=== PATIENT | male | born 1945 | race Caucasian/White ===

== ENCOUNTER 2019-12-09 14:46 | Outpatient (CLI) | payer MEDICARE, SELFPAY ==
--- NOTE | 2019-12-09 15:00 | USCV_ITS ---
Gardenia Oskar Age: 74 Gender: M : 1945 Exam Date: 12/09/2019 15:25 Ordering Phys: Matt Juares M.D ([email or web address]) Technologist: Chidi Beltran Exam Location: [facility] [place] Indication: CAD BP: 125 / 72 HR: 43 Rhythm: Sinus Technical Quality: Adequate MEASUREMENTS (Male / Female) Normal Values 2D ECHO LV Diastolic Diameter PLAX 5.8 cm 4.2 - 5.9 / 3.9 - 5.3 cm LV Systolic Diameter PLAX 3.8 cm IVS Diastolic Thickness 1.0 cm 0.6 - 1.0 / 0.6 - 0.9 cm IVS Systolic Thickness 1.4 cm LVPW Diastolic Thickness 1.2 cm 0.6 - 1.0 / 0.6 - 0.9 cm LVPW Systolic Thickness 1.6 cm LVOT Diameter 2.0 cm LV Ejection Fraction 2D Teich 62.5 % LV Ejection Fraction MOD 2C 25.2 % LV Ejection Fraction 2C AL 26.9 % LA Diameter 4.0 cm LA Width 3.7 cm LA Height 6.1 cm RA Width 3.4 cm RA Height 4.9 cm Aorta at Sinotubular Diameter 1.0 cm M-MODE LV Diastolic Diameter MM 7.8 cm 4.2 - 5.9 / 3.9 - 5.3 cm LV Systolic Diameter MM 5.8 cm LV Ejection Fraction MM Teich 49.0 % IVS Diastolic Thickness MM 1.2 cm 0.6 - 1.0 / 0.6 - 0.9 cm IVS Systolic Thickness MM 1.3 cm LVPW Diastolic Thickness MM 1.2 cm 0.6 - 1.0 / 0.6 - 0.9 cm LVPW Systolic Thickness MM 1.5 cm RV Diastolic Diameter MM 1.2 cm Aortic Annulus Diameter 4.1 cm LA Ao Ratio MM 1.0 MV E Point Septal Separation 2.3 cm DOPPLER AV Peak Velocity 155.0 cm/s LVOT Peak Velocity 82.0 cm/s AV Area Cont Eq vti 1.9 cm squared AV Area Cont Eq pk 1.7 cm squared MV Area PHT 5.0 cm squared Mitral E to A Ratio 1.1 MV E' Velocity 14.0 cm/s Mitral E to MV E' Ratio 7.7 Mitral E to LV E' Lateral Ratio 5.6 Mitral E to LV E' Septal Ratio 12.4 TR Peak Velocity 376.0 cm/s TR Peak Gradient 56.5 mmHg TV Peak E Velocity 95.0 cm/s Right Atrial Pressure 3.0 mmHg Pulmonary Artery Systolic Pressu 59.6 mmHg PV Peak Velocity 90.0 cm/s FINDINGS Left Ventricle Normal left ventricular size. LV systolic function is moderately reduced with EF of 35 to 40%. Apical and mid to apical anterior wall are akinetic. Moderate hypokinesis of mid to apical inferior wall is noted. Normal left ventricular wall thickness. Diastolic function is abnormal. Right Ventricle The right ventricle is normal in size and function. Right Atrium The right atrium is normal in size. Left Atrium The left atrium is mildly dilated Mitral Valve Structurally normal mitral valve without significant stenosis or prolapse. There is mild to moderate mitral regurgitation. Aortic Valve Structurally normal aortic valve without significant sclerosis or stenosis. There is mild to moderate aortic regurgitation. Tricuspid Valve Structurally normal tricuspid valve without significant stenosis or regurgitation. Insufficient TR jet to calculate RVSP. Pulmonic Valve Structurally normal pulmonic valve without significant stenosis. There is no pulmonic regurgitation. Pericardium Normal pericardium without effusion. Aorta Ascending aorta is dilated. CONCLUSIONS LV systolic function is moderately reduced with EF of 35 to 40%. Above-mentioned regional wall motion abnormalities are noted. Diastolic function is abnormal. Mild to moderate mitral regurgitation and mild to moderate aortic regurgitation is noted. Ascending aorta is dilated. Matt Juares MD (Electronically Signed) Final Date: 15 December 2019 10:41 S
== END 2019-12-09 14:47 | disposition home or self-care (01) ==
LOC: US 14:47
PROVIDERS: PCP Family Medicine; Visit Provider Internal Medicine
DX: I25.5 Ischemic cardiomyopathy (principal); I08.0 Rheumatic disorders of both mitral and aortic valves
CPT/HCPCS: 93306

== ENCOUNTER → 2020-06-06 08:58 | Outpatient (BNVA) | payer MEDICARE, MEDICAID, SELFPAY | PROVIDERS: PCP Family Medicine; Visit Provider Internal Medicine | DX: I25.10 Atherosclerotic heart disease of native coronary artery without angina pectoris (principal); R07.9 Chest pain, unspecified; Z01.89 Encounter for other specified special examinations; Z20.822 Contact with and (suspected) exposure to COVID-19 | CPT/HCPCS: 80048; 85025; 85610; 87635 ==

== ENCOUNTER 2020-06-09 09:00 | Observation (INO) | payer MEDICARE, MEDICAID, SELFPAY ==
[2020-06-09] VITALS (28 sets, daily range): BP systolic 80–144; BP diastolic 49–93; PULSE 43–69; RESP 8–23; TEMP 36.5; O2SAT 94–98; BMI 28.8
[2020-06-09] MEDS: diphenhydrAMINE 50 mg Capsule PO (07:00)
--- NOTE | 2020-06-09 07:32 | W.PM.OPSUD ---
Surgery/Procedure H&P Update DATE OF PROCEDURE: June 09, 2020 DATE H&P PERFORMED: 05/24/20 H&P UPDATE INFORMATION: I have reviewed H&P completed within last 30 days, I have examined patient prior to procedure and No changes to prior documentation PREOP DIAGNOSIS: Worsening angina PRIMARY INDICATION FOR PROCEDURE: Worsening angina PLANNED PROCEDURE: Operation Date: 06/09/20 07:00 Proposed Procedures p Cardiac Catheterization 57660 I25.10 R07.89(Left) - Matt Juares M.D Possible percutaneous coronary intervention PATIENT REASSESSED PRIOR TO SEDATION, WITH NO CHANGE NOTED: Yes PHYSICAL EXAM: alert, oriented x 3 and clear to auscultation bilaterally AIRWAY EVAL/ANESTHESIA PLAN: ASA III, Risks, benefits & alternatives of sedation and/or procedure discussed and Patient agrees to continue as planned
--- NOTE | 2020-06-09 12:00 | XACV_ITS ---
Ht: 183 cm Wt: 97 kg BSA: 2.23 m2 Gender: Male : 1945 Any Known Allergies: No known allergies Exam Priority: Routine Procedure(s): Procedure Description: Diagnostic procedure Procedure Description: Left Heart Catheterization Procedure Description: Left ventriculography Procedure Description: Coronary Angiography Diagnostic Cath Status: Elective Diagnostic Findings * Indication: Worsening chest pain. * Patient has separate ostia for LAD and left circumflex artery. LAD stent is patent. No significant stenosis is noted in LAD or diagonal. Left circumflex is a large artery and is patent. No significant stenosis is noted. RCA is patent. No significant stenosis is noted. Is a small sized vessel.. * Dilated ascending aorta. * Coronary angiography shows left dominance. Conclusions 1. Separate ostia of LAD and left circumflex artery. No significant coronary artery disease. Patent prior LAD stent.. 2. Moderate left ventricular systolic dysfunction. Ejection fraction of 35%. Recommendations * Aggressive risk factor control. * Consider adding Imdur if chest pain symptoms continue. * Outpatient cardiology follow up. Interventional RX Recommendation: medical therapy and/or counseling Diagnostic RX Recommendation: medical therapy and/or counseling Ventriculography Ejection Fraction: 35.0 % Pressures Phase:Rest AO : 115 / 76 ( 89 ) @ 3:09:00 AM 112 / 62 ( 68 ) @ 3:14:00 AM 111 / 71 ( 85 ) @ 3:16:00 AM 115 / 72 ( 86 ) @ 3:20:00 AM 126 / 30 ( 83 ) @ 3:29:00 AM LV : 118 / 12 / @ 3:14:00 AM 111 / -2 / @ 3:29:00 AM 111 / 0 / @ 3:29:00 AM Clinical Evaluation EBL: 5mL-10mL Procedural Details Procedure Consent Obtained. Pre-Procedure Time Out. Identified patient by full name and date of as verbalized by the patient/guarantor. Does the consent match the physician's order: Yes. Accurate & Complete Informed Consent: Yes. Inpatient/Outpatient History & Physical on Chart: Yes. If H&P is completed, is and addenduem needed: No; If yes, is the addendum complete: N/A. Visualize and Verify Site with Patient/Guarantor: N/A. Relevant Radiology Images available: N/A. Pre-op teaching completed and patient verbalized understanding. The risks, benefits, and alternatives of sedation and/or procedure were discussed by physician. The patient agrees to continue. Procedure started. [facility] Clinical Fraility Score: 3: Managing Well. 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 Chest Pain Symptom Assessment: Typical Angina Symptoms. Correct patient, site and procedure confirmed by cath team. PERRLA. Strong, equal hand engine generator assembler bilaterally. Lungs clear x 5 lobes. IV Site on Arrival: 18 gauge in the left anticubital. IV Fluids: 0.9% NaCl at KVO. 0 mL infused prior to optical lab technician. Pre Procedural Pulses: bilateral dorsalis pedis was 2+. Pre Procedural Pulses: bilateral posterior tibial was 2+. Pre Procedural Pulses: right radial was 2+. Pre Procedural Pulses: left radial was 3+. Oxygen started at 2liters/min via nasal canula. Baseline sample Acquired. HR: 59 BPM. Physician arrived. Equipment: 6F - Femoral. Cardiac Cath Pack. ACIST Manifold Kit Model BT 2000. Heparinized Saline (2 units/mL), 1000 mL bag. Kit, Micropuncture. bilateral groins was prepped with chloroprep then draped in the usual sterile fashion. Physician scrubbed in. Immediate Pre-Procedure Time Out. Correct Patient: Yes; Correct Procedure: Yes; Correct Site: Yes; Correct Patient Position: Yes; Correct Supplies: Yes; Dried Flammable Prep: Yes; Blood Products Available: N/A;. STEMI alert called for an ER pt. Physician scrubbed out to assess STEMI pt in ER. Physician scrubbed in. Lidocaine 1% infiltrated to the right groin. Arterial access obtained with micropuncture set. Wire and needle out. Arterial access obtained with micropuncture set. Hand injection through micropuncture dilator. Flexor sheath exchanged for short 6 fr sheath dilator. 45 cm 6 fr Flexor sheath inserted. A 5 egyptian JR5 catheter in over wire. Catheter removed over the exchange wire. Multiple views taken of right coronary artery. Sheath dilator inserted over wire to advance sheath in further. Dilator out. Inventory is CRD 6FR JL 6 GUIDE. 6 egyptian JL 6 guide catheter was inserted over the wire. EDP Sample taken: LV 118/12,25; HR: 48 BPM; SpO2: 97%. Pullback taken: LV Off; AO Off; Mean: , Peak to Peak: , SEP: ; HR: 47 BPM; SpO2: 96%. Guide catheter out. Inventory is CRD 6FR XB4 GUIDE. 6 egyptian XB 4 guide catheter was inserted over the wire. Multiple views taken of left coronary artery. Guide catheter out. A 6 cm Straight Pig catheter in over wire. EDP Sample taken: LV 111/-3,14; HR: 34 BPM; SpO2: 98%. LV gram performed in KIMBALL @ 10 mL/second for a total of 30 mL. EDP Sample taken: LV 111/-1,22; HR: 56 BPM; SpO2: 98%. Pullback taken: LV Off; AO Off; Mean: , Peak to Peak: , SEP: ; HR: 55 BPM; SpO2: 98%. Catheter removed over the exchange wire. Physician scrubbed out. A Manual Compression was successful obtaining hemostatsis at the Right Femoral artery insertion site. Sheath(s) removed and manual pressure held until hemostasis was achieved. Sterile 4x4 and Op-site applied to the puncture site. No oozing or hematoma noted. Post sheath removal instructions were given and the patient verbalized understanding. Post Procedure: Pulses reassessed and unchanged. PERRLA. Strong, equal hand engine generator assembler bilaterally. No VTE prophylaxis required. Contrast type used: Omnipaque 300 mgI/mL, 500 mL bottle. Post-op diagnosis: non obstructive CAD. Complications: none. Medication's Wasted: Lidocaine 1% = 10 mL. Medication's Wasted: Heparin = 1000 units. Total IV fluids: 75 mL. Estimated blood loss: 5mL-10mL. Procedure completed. Patient transferred by bed to 1st floor. Vital chart was stopped. Access Site Site: Right Femoral artery Sheath Size: 6 Fr Hemostasis Method: Manual Compression Hemostasis Success: Successful Procedure Medications Start: 7:34 AM Stop: 7:34 AM Medication: Versed Amount: 1 mg Route: I.V. Start: 7:34 AM Stop: 7:34 AM Medication: Fentanyl Amount: 50 mcg Route: I.V. Start: 7:41 AM Stop: 7:41 AM Medication: Versed Amount: 1 mg Route: I.V. Start: 7:54 AM Stop: 7:54 AM Medication: Versed Amount: 1 mg Route: I.V. Start: 7:59 AM Stop: 7:59 AM Medication: Fentanyl Amount: 25 mcg Route: I.V. Start: 8:03 AM Stop: 8:03 AM Medication: Versed Amount: 1 mg Route: I.V. Start: 8:07 AM Stop: 8:07 AM Medication: Fentanyl Amount: 25 mcg Route: I.V. I, the attending physician, have reviewed and verified all procedure medications. Yes, all medications given per verbal order History/Risk Factors Hypertension: Yes Dyslipidemia: Yes Peripheral Arterial Disease (PAD): No Myocardial Infarction ([place]): Yes Obesity: No Renal Disease: No Tobacco Use: Never Prior Interventions PCI: No CABG: No Valve Surgery: No Report Signatures Finalized by Matt Juares MD on 06/22/2020 11:28 AM
--- NOTE | 2020-06-09 15:35 | PC.NURSE ---
received from cardiac poultry farm laborer via bed at 0900.report received.pt is alert and awake and oriented x 4.denies pain.right femoral sheath had been pulled in poultry farm laborer prior to transfer.right groin with drsg dry and intact.no hematoma noted.right leg warm to touch and with brisk capillary refill.palpable dp/pt pulses noted.instructed in activity restrictions s/p femoral procedure...and instructed to notify staff for any bleeding,pain,numbness..or for any concerns at all.pt verb understanding of instructions.
--- NOTE | 2020-06-09 15:45 | PC.NURSE ---
pt has been on bed rest for 6 hrs.no hematoma noted right groin.drsg remains dry and intact.vss.pt ambulated in room.bp stable .discharge instructions given.pt verb understanding of instructions.discharged via w/c to exit.spouse to drive pt home.
== END 2020-06-09 15:00 | disposition home or self-care (01) ==
LOC: CSU 09:23
PROVIDERS: Admitting Provider Internal Medicine; PCP Family Medicine; Visit Provider Internal Medicine
DX: I25.10 Atherosclerotic heart disease of native coronary artery without angina pectoris (principal); R07.89 Other chest pain; I10 Essential (primary) hypertension; E78.5 Hyperlipidemia, unspecified; I25.2 Old myocardial infarction; Z79.82 Long term (current) use of aspirin; Z79.02 Long term (current) use of antithrombotics/antiplatelets; Z82.49 Family history of ischemic heart disease and other diseases of the circulatory system; Z83.3 Family history of diabetes mellitus; I25.5 Ischemic cardiomyopathy; Z78.9 Other specified health status
CPT/HCPCS: 36415; 93452; C1769; C1887; C1894; G0378; J1644; J2250; J3010; J7030; Q0163; Q9967

== ENCOUNTER → 2020-06-19 11:35 | Outpatient (BNVA) | payer MEDICARE, MEDICAID, SELFPAY | PROVIDERS: PCP Family Medicine; Visit Provider Nurse Practitioner Family | DX: I25.5 Ischemic cardiomyopathy (principal); I10 Essential (primary) hypertension | CPT/HCPCS: 80048 ==

== ENCOUNTER 2020-12-19 08:11 | Outpatient (CLI) | payer MEDICARE, MEDICAID, SELFPAY ==
--- NOTE | 2020-12-19 08:30 | CT_ITS ---
WS: [id number] CTA THORACIC AORTA WITH AND WITHOUT CONTRAST. HISTORY: I71.2 - Thoracic aortic aneurysm, without rupture TECHNIQUE: CT imaging of the thorax is performed with and without contrast. After noncontrast imaging is performed, CT angiogram is performed during injection of Omnipaque 350; 95 mL IV.. Sagittal and c oronal reconstructions, sagittal and coronal MIP imaging is submitted. All CT scans at [facility] use at least one of these dose optimization techniques: automated exposure control; mA and/or kV adjustment per patient size (includes targeted exams where dose is matched to clinical indication); or iterative reconstruction. DLP: 1691.01 mGy.cm COMPARISON: 05/12/2020 Good enhancement of the thoracic aorta. There is mild dilatation and ectasia of the ascending aorta. Maximum diameter of the ascending aorta is 4.4 cm which is unchanged. Proximal descending aorta maxim um diameter is 3.5 cm. Thoracic aorta tapers normally through the arch. Tortuous great vessels but th ey are intact. LEFT vertebral artery also arises from the aortic arch but there is a large amount hugh cification at the origin. No aortic dissection. Small amount of calcified plaque at the origin of the mesenteric arteries and renal arteries. Lungs are clear. No mediastinal or hilar adenopathy. Dilated pulmonary artery of 4.4 cm. Moderate enl argement of the heart chambers. No RIGHT heart strain is evident. There are small hepatic cysts which have been seen on prior examinations. Cholelithiasis without acut e cholecystitis. No bile duct dilatation. CT/CT angio chest 25869 IMPRESSION: 1. Mild ectasia and dilatation of the ascending thoracic aorta with a maximum diameter 4.4 cm. Similar to the prior study of 05/12/2020. 2. No aortic dissection or ulcerating plaque. 3. Mild pulmonary artery hypertension. 4. Moderate cardiomegaly. 5. 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 6. Cholelithiasis without acute cholecystitis. 7. No pulmonary mass.
[2020-12-19 09:13] LABS: Blood Urea Nitrogen 15 mg/dL (8-23)
--- NOTE | 2020-12-19 09:30 | USCV_ITS ---
Oskar Varner Age: 75 Gender: M : 1945 Exam Date: 12/19/2020 08:59 Ordering Phys: Minor Horvath MD (Andy) [email or web address] [place] Technologist: Georgina Hagan [place] [facility] [place]ication: NONRHEUMATIC AO VALVE INSUFF BP: 132 / 88 HR: 54 Rhythm: Sinus Technical Quality: Adequate MEASUREMENTS (Male / Female) Normal Values 2D ECHO LV Diastolic Diameter PLAX 7.3 cm 4.2 - 5.9 / 3.9 - 5.3 cm LV Systolic Diameter PLAX 5.8 cm IVS Diastolic Thickness 1.3 cm 0.6 - 1.0 / 0.6 - 0.9 cm IVS Systolic Thickness 1.6 cm LVPW Diastolic Thickness 1.2 cm 0.6 - 1.0 / 0.6 - 0.9 cm LVPW Systolic Thickness 1.5 cm LVOT Diameter 2.0 cm LV Ejection Fraction 2D Teich 42.4 % LV Ejection Fraction MOD 2C 45.7 % LV Ejection Fraction 2C AL 45.5 % LA Diameter 3.4 cm LA Width 2.8 cm LA Height 4.6 cm RA Width 4.0 cm RA Height 5.0 cm Aorta at Sinotubular Diameter 3.5 cm M-MODE Aortic Annulus Diameter 3.9 cm LA Ao Ratio MM 0.9 DOPPLER AV Peak Velocity 149.0 cm/s LVOT Peak Velocity 69.0 cm/s AV Area Cont Eq vti 1.5 cm squared AV Area Cont Eq pk 1.5 cm squared MV Area PHT 4.8 cm squared Mitral E to A Ratio 1.9 MV E' Velocity 37.2 cm/s Mitral E to MV E' Ratio 8.6 Mitral E to LV E' Lateral Ratio 5.9 Mitral E to LV E' Septal Ratio 16.1 TR Peak Velocity 267.6 cm/s TR Peak Gradient 28.6 mmHg TR Mean Velocity 186.9 cm/s TR Mean Gradient 15.8 mmHg TR Velocity Time Integral 105.1 cm TV Peak E Velocity 45.0 cm/s PV Peak Velocity 88.0 cm/s RV Acceleration Time 0.1 s RV Ejection Time 0.3 s RV AcT/ET 0.4 FINDINGS Left Ventricle LV is dilated. LV systolic function is moderately reduced with EF of 35-40%. Apical wall is akinetic. Apical lateral wall has severe hypokinesis. Grade 2 diastolic dysfunction Right Ventricle The right ventricle is normal in size and function. Right Atrium The right atrium is normal in size. Left Atrium The left atrium is dilated Mitral Valve Structurally normal mitral valve without significant stenosis or prolapse. There is mild mitral regurgitation. Aortic Valve Structurally normal aortic valve without significant sclerosis or stenosis. There is mild to moderate aortic regurgitation. Tricuspid Valve Structurally normal tricuspid valve without significant stenosis. Trivial tricuspid regurgitation. Pulmonary artery systolic pressure is normal. Pulmonic Valve Structurally normal pulmonic valve without significant stenosis. There is no pulmonic regurgitation. Pericardium Normal pericardium without effusion. Aorta Ascending aorta is dilated CONCLUSIONS LV systolic function is moderately reduced with EF of 35-40%. Above mentioned regional wall motion abnormalities Grade 2 diastolic dysfunction Left atrial enlargement Mild mitral regurgitation Mild to moderate aortic regurgitation Compared to prior echocardiogram from 12/09/2019, no significant changes are noted Matt Juares MD (Electronically Signed) Final Date: 20 December 2020 12:28 S
[2020-12-19] MEDS: iohexol 350 mg/mL 100 mL Btl IV (10:01)
== END 2020-12-19 08:12 | disposition home or self-care (01) ==
LOC: CT 08:12
PROVIDERS: PCP Family Medicine; Visit Provider Thoracic Surgery (Cardiothoracic Vascular Surgery)
DX: I08.0 Rheumatic disorders of both mitral and aortic valves (principal); I71.2 Thoracic aortic aneurysm, without rupture; I27.20 Pulmonary hypertension, unspecified; K80.20 Calculus of gallbladder without cholecystitis without obstruction
CPT/HCPCS: 36415; 71275; 82565; 84520; 93306

== ENCOUNTER → 2021-06-22 10:30 | Outpatient (BNVA) | payer MEDICARE, MEDICAID, SELFPAY | PROVIDERS: PCP Family Medicine; Visit Provider Internal Medicine | DX: M79.606 Pain in leg, unspecified (principal); I10 Essential (primary) hypertension; I25.10 Atherosclerotic heart disease of native coronary artery without angina pectoris | CPT/HCPCS: 99214 ==

== ENCOUNTER 2021-07-26 08:20 | Outpatient (CLI) | payer MEDICARE, MEDICAID, SELFPAY ==
--- NOTE | 2021-07-26 08:29 | CT_ITS ---
WS: [id number] CT CHEST TECHNIQUE: Noncontrast CT of the chest with coronal and sagittal reformatted images. CLINICAL INFORMATION: Thoracic asending aortic aneurysm COMPARISON: CTA chest December 19, 2020 DLP: 766.[address] scans at [facility] use at least one of these dose optimization techniques: automated e xposure control; mA and/or kV adjustment per patient size (includes targeted exams where dose is matc hed to clinical indication); or iterative reconstruction. FINDINGS: Stable ectatic ascending thoracic aorta with a maximum dimension of 4.4 cm unchanged since the prior examination. Mild enlargement of the main pulmonary arteries bilaterally can be seen with pulmonary a rterial hypertension. Stable cardiomegaly. Normal caliber descending thoracic aorta. 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 No mediastinal or hilar lymphadenopathy. Incidental small hepatic cysts are unchanged. Cholelithiasis. Adrenal glands are normal. Noncontrast spleen is normal. Normal GE junctio n. Partially visualized RIGHT renal cyst. Mild calcification celiac and SMA origins. No axillary lymp hadenopathy. Coronary calcification. CT/CT chest wo con [id number] IMPRESSION: 1. Stable ectatic ascending thoracic aorta measuring 4.4 cm maximum dimension is unchanged. 2. 3 mm nodule RIGHT middle lobe is unchanged. 3. Coronary calcification. 4. No mediastinal or hilar lymphadenopathy. 5. Stable cholelithiasis. 6. Overall no significant changes from previous.
--- NOTE | 2021-07-26 09:15 | USCV_ITS ---
Oskar Varner Age: 76 Gender: M : 1945 Exam Date: 07/26/2021 09:16 Ordering Phys: Matt Juares M.D ([email or web address]) Technologist: MILADIS Exam Location: [facility] [place] Indication: Leg pain Risk Factors: Previous Vascular Surgery: RIGHT LEFT BP: 130.0 / 77.00 BP: 130.0/ 75.00 0 0 Waveform Velocity (cm/s) Velocity (cm/s) Waveform Triphasic 76.9 Iliac Prox 51.9 Triphasic Triphasic 89.3 Iliac Mid 44.7 Triphasic Triphasic 48.0 Iliac Distal 44.0 Triphasic Triphasic 44.0 SECONDS GRADER 59.8 Triphasic Triphasic 73.8 SFA Prox 65.1 Triphasic Triphasic 52.0 SFA Mid 63.2 Triphasic Triphasic 52.0 SFA Dist 37.0 Triphasic Triphasic 25.4 POP 30.8 Triphasic Triphasic 58.3 RETAIL SOLAR ADVISOR 45.3 Triphasic Biphasic 25.2 DPA 52.7 Triphasic FINDINGS Unable to obtain ankle pressures due to pt c/o pain. Mild diffuse plaques in the iliac and femoral arteries bilaterally mild to moderate plaques were noted on the infrapopliteal vessels Near normal arterial Doppler waveforms bilaterally CONCLUSIONS 1. Patent iliac, femoral, popliteal and infrapopliteal vessels bilaterally 2. Minimal plaque in the iliac vessels. Mild to moderate plaque in the infrapopliteal vessels 3. No significant arterial obstruction, based on the above findings. 4. ABIs were not obtained because of the patient's difficulty in tolerating the cuff pressure No similar previous studies are available for comparison Dr Galindo Manuel MD [facility] (Electronically Signed) Final Date: 27 Jul 2021 08:36 S
== END 2021-07-26 08:21 | disposition home or self-care (01) ==
LOC: RAD 08:23
PROVIDERS: PCP Family Medicine; Visit Provider Internal Medicine
DX: I71.2 Thoracic aortic aneurysm, without rupture (principal); R91.1 Solitary pulmonary nodule; K80.20 Calculus of gallbladder without cholecystitis without obstruction; I25.10 Atherosclerotic heart disease of native coronary artery without angina pectoris
CPT/HCPCS: 71250; 93925

== ENCOUNTER → 2021-08-29 10:43 | Outpatient (BNVA) | payer MEDICARE, MEDICAID, SELFPAY | PROVIDERS: PCP Family Medicine; Referring Provider Nurse Practitioner Family; Visit Provider Specialist | DX: M17.0 Bilateral primary osteoarthritis of knee (principal); M25.562 Pain in left knee; M25.561 Pain in right knee | CPT/HCPCS: 20610; 73560; 73565; 99203; 99204; J1100; J2795; J3301 ==

== ENCOUNTER → 2021-09-03 10:37 | Outpatient (BNVA) | payer MEDICARE, MEDICAID, SELFPAY | PROVIDERS: PCP Family Medicine; Referring Provider Family Medicine; Visit Provider Specialist | DX: M19.011 Primary osteoarthritis, right shoulder (principal); M75.81 Other shoulder lesions, right shoulder; M75.01 Adhesive capsulitis of right shoulder; M25.511 Pain in right shoulder | CPT/HCPCS: 20610; 73030; 99213; J1100; J2795; J3301 ==

== ENCOUNTER → 2021-10-12 09:09 | Outpatient (BNVA) | payer MEDICARE, MEDICAID, SELFPAY | PROVIDERS: PCP Family Medicine; Visit Provider Internal Medicine Cardiovascular Disease | DX: I71.2 Thoracic aortic aneurysm, without rupture (principal); I10 Essential (primary) hypertension; I25.5 Ischemic cardiomyopathy; I25.2 Old myocardial infarction; Z78.9 Other specified health status; I25.10 Atherosclerotic heart disease of native coronary artery without angina pectoris | CPT/HCPCS: 99214; 99215 ==

== ENCOUNTER 2021-10-22 06:50 | Outpatient (CLI) | payer MEDICARE, MEDICAID, SELFPAY ==
[2021-10-19 08:33] VITALS: BMI 28.0
[2021-10-22] VITALS (50 sets, daily range): BP systolic 98–143; BP diastolic 63–85; PULSE 44–71; RESP 10–27; TEMP 36.8; O2SAT 92–100; BMI 28.0
[2021-10-22 07:30] LABS: Basophils # 0.1 10^3/uL (0.0-0.1); Basophils % 1.1 %; Eosinophils # 0.3 10^3/uL (0.0-0.8); Eosinophils % 4.7 %; Hematocrit 49.4 % (42.0-52.0); Hemoglobin 16.4 g/dL (11.7-16.6); Lymphocytes # 1.2 10^3/uL (0.8-4.8); Lymphocytes % 19.3 %; Mean Corpuscular HGB Conc 33.2 g/dL (30.0-36.0); Mean Corpuscular Hemoglobin 30.7 pg (28.0-34.0); Mean Corpuscular Volume 92.5 fl (80-94); Mean Platelet Volume 9.6 fL (7.4-10.4); Monocytes # 0.6 10^3/uL (0.2-0.9); Neutrophils # 4.16 10^3/uL (1.8-7.7); Neutrophils % 64.7 %; Nucleated Red Blood Cells % 0 %; Platelet Count 222 10^3/cmm (130-400); Red Blood Count 5.34 10^6/uL (4.1-5.3); Red Cell Distribution Width 15.4 % (12.1-15.1); White Blood Count 6.4 10^3/uL (4.0-10.0)
[2021-10-22] MEDS: diphenhydrAMINE 50 mg Capsule PO (07:30)
[2021-10-22 08:08] LABS: Anion Gap 15.2 (5-19); Blood Urea Nitrogen 20 mg/dL (8-23); Calcium 9.4 mg/dL (8.5-10.5); Carbon Dioxide 28 mmol/L (22-29); Chloride 104 mmol/L (98-107); Glucose 85 mg/dL (65-115); Osmolality Calculated 298 mOsm/kg (285-295); Potassium 4.2 mmol/L (3.5-5.1); Sodium 143 mmol/L (136-145)
[2021-10-22 08:24] LABS: Creatinine Clr Calc Pharmacy 56.6176
--- NOTE | 2021-10-22 08:30 | XACV_ITS ---
Exam Room: 2 Ht: 183 cm Wt: 94 kg BSA: 2.20 m2 Gender: Male : 1945 Any Known Allergies: No known allergies Exam Priority: Routine Procedure(s): Procedure Description: Diagnostic procedure Procedure Description: Coronary Angiography Fartun VILLA; Diagnostic Cath Status: Elective Diagnostic Findings * LAD and left circumflex have separate ostia. LAD has patent proximal artery stent. Mild to moderate diffuse luminal irregularities are seen. Left circumflex artery is a codominant vessel. No significant stenosis is seen. RCA is a small to medium sized vessel. No significant stenosis is seen.. * Coronary angiography shows co-dominance. Conclusions 1. LAD and left circumflex have separate ostia. LAD has patent proximal artery stent. Mild to moderate diffuse luminal irregularities are seen. Left circumflex artery is a codominant vessel. No significant stenosis is seen. RCA is a small to medium sized vessel. No significant stenosis is seen.. Recommendations * Aggressive risk factor modification. * Outpatient cardiology follow-up in 4 weeks. Interventional RX Recommendation: medical therapy and/or counseling Diagnostic RX Recommendation: medical therapy and/or counseling Pressures Phase:Rest AO : 112 / 72 ( 89 ) @ 9:53:00 AM 114 / 71 ( 88 ) @ 9:54:00 AM Clinical Evaluation EBL: 5mL-10mL Procedural Details Pre-Procedure Time Out. Identified patient by full name and date of as verbalized by the patient/guarantor. Does the consent match the physician's order: Yes. Accurate & Complete Informed Consent: Yes. Inpatient/Outpatient History & Physical on Chart: Yes. If H&P is completed, is and addenduem needed: No. Visualize and Verify Site with Patient/Guarantor: N/A. Relevant Radiology Images available: Yes. Pre-op teaching completed and patient verbalized understanding. The risks, benefits, and alternatives of sedation and/or procedure were discussed by physician. The patient agrees to continue. Procedure started. [facility] Clinical Fraility Score: 3: Managing Well. Staff Home Therapy Rn Indications: Worsening Angina. Chest Pain Symptom Assessment: Typical Angina Symptoms. Cardiovascular Instability: No. Correct patient, site and procedure confirmed by cath team. PERRLA. 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 Lungs clear x 5 lobes. IV Site on Arrival: 20 gauge in the right anticubital. IV Fluids: 0.9% NaCl at KVO. 0 mL infused prior to collaborating supervising physician. Pre Procedural Pulses: bilateral dorsalis pedis was 1+. Pre Procedural Pulses: bilateral posterior tibial was 1+. Oxygen started at 2liters/min via nasal canula. bilateral groins was prepped with chloroprep then draped in the usual sterile fashion. Physician notified. Baseline sample Acquired. HR: 98 BPM. Patient's family waiting in CPRU. Dr. Juares will update at the completion of the procedure. Physician arrived. Physician scrubbed in. Immediate Pre-Procedure Time Out. Correct Patient: Yes; Correct Procedure: Yes; Correct Site: Yes; Correct Patient Position: Yes; Correct Supplies: Yes; Dried Flammable Prep: Yes; Blood Products Available: N/A;. Lidocaine 1% infiltrated to the right groin. Arterial access obtained with micropuncture set. Sheath upsized to a 6 Fr. 6 [place] XB 4 guide catheter was inserted over the wire. Guide catheter out. A 5 [place] JR4 catheter in over wire. 0.035 260cm Stiff Angled Glidewire in through the JR4. Glidewire out. Multiple views taken of right coronary artery. Catheter removed over the glide wire. 6 [place] XB 4 guide catheter was inserted over the glidewire. Multiple views taken of left coronary artery. Guide catheter out over the glideiwre. A 5 [place] Angled Pig catheter in over the glidewire. Glidewrie out. Catheter removed over the glide wire. Dr. Juares scrubbed out. A Manual Compression was successful obtaining hemostatsis at the Right Femoral artery insertion site. Sheath(s) removed and manual pressure held until hemostasis was achieved. Sterile 4x4 and Op-site applied to the puncture site. No oozing or hematoma noted. Post sheath removal instructions were given and the patient verbalized understanding. Post Procedure: Pulses reassessed and unchanged. PERRLA. 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 No VTE prophylaxis required. Total IV fluids: 265 mL. Post-op diagnosis: Non-obstructive CAD. Complications: none. Estimated blood loss: 5mL-10mL. Responsiveness - Normal response to verbal stimuli; alert and oriented, PERRLA. Airway - Unaffected, no intervention required; spontaneous ventilation. Circulation: W/N/L, pulses unchanged. Nausea/Vomiting: No. Medication's Wasted: Heparin = 1000 units. Medication's Wasted: Lidocaine 1% = 1 mL. Patient transferred by bed to 1st floor. Procedure completed. Vital chart was stopped. Access Site Site: Right Femoral artery Sheath Size: 6 Fr Hemostasis Method: Manual Compression Hemostasis Success: Successful Procedure Medications Start: 8:37 AM Stop: 8:37 AM Medication: Versed Amount: 1 mg Route: I.V. Start: 8:37 AM Stop: 8:37 AM Medication: Versed Amount: 1 mg Route: I.V. Start: 8:37 AM Stop: 8:37 AM Medication: Fentanyl Amount: 50 mcg Route: I.V. Start: 8:43 AM Stop: 8:43 AM Medication: Fentanyl Amount: 50 mcg Route: I.V. Start: 8:46 AM Stop: 8:46 AM Medication: Versed Amount: 1 mg Route: I.V. Start: 8:33 AM Stop: 8:33 AM Medication: 0.9% Saline Amount: 250 ml Route: I.V. bolus I, the attending physician, have reviewed and verified all procedure medications. Yes, all medications given per verbal order History/Risk Factors Hypertension: Yes Dyslipidemia: Yes Peripheral Arterial Disease (PAD): Yes Myocardial Infarction (LA): Yes Obesity: No Renal Disease: No Tobacco Use: Never Prior Interventions PCI: Yes CABG: No Valve Surgery: No Date of PCI: 01/31/2019 Report Signatures Finalized by Matt Juares MD on 11/03/2021 10:13 AM
--- NOTE | 2021-10-22 08:35 | W.PM.OPSUD ---
Surgery/Procedure H&P Update DATE OF PROCEDURE: October 22, 2021 DATE H&P PERFORMED: 10/12/21 H&P UPDATE INFORMATION: I have reviewed H&P completed within last 30 days, I have examined patient prior to procedure and No changes to prior documentation PREOP DIAGNOSIS: New onset angina PRIMARY INDICATION FOR PROCEDURE: New onset angina PLANNED PROCEDURE: Operation Date: 10/22/21 08:30 Proposed Procedures p Cardiac Catheterization left 97461,R07.9(Left) - Matt Juares M.D Possible percutaneous coronary intervention PATIENT REASSESSED PRIOR TO SEDATION, WITH NO CHANGE NOTED: Yes PHYSICAL EXAM: alert, oriented x 3, clear to auscultation bilaterally and regular rate & rhythm AIRWAY EVAL/ANESTHESIA PLAN: ASA III, ASA IV, Local Anesthesia, Risks, benefits & alternatives of sedation and/or procedure discussed and Patient agrees to continue as planned ADDITIONAL INFORMATION: Moderate sedation
--- NOTE | 2021-10-22 09:32 | PC.NURSE ---
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
--- NOTE | 2021-10-22 14:13 | PC.NURSE ---
patient ambulating with no pain or swelling at site
--- NOTE | 2021-10-22 15:51 | PC.NURSE ---
Discharge Note Patient discharged to [facility] via private vehicle accompanied by spouse. Discharge instructions reviewed with patient and/or sales and service representative. Mobile pharmacy medications and/or prescriptions provided. Belongings/home medications returned.
== END 2021-10-22 15:50 | disposition home or self-care (01) ==
LOC: CCL 06:53 → CSU 09:38
PROVIDERS: PCP Family Medicine; Visit Provider Internal Medicine
DX: I25.10 Atherosclerotic heart disease of native coronary artery without angina pectoris (principal); I10 Essential (primary) hypertension; E78.5 Hyperlipidemia, unspecified; I25.2 Old myocardial infarction; K21.9 Gastro-esophageal reflux disease without esophagitis; Z95.5 Presence of coronary angioplasty implant and graft; Z82.49 Family history of ischemic heart disease and other diseases of the circulatory system; Z83.3 Family history of diabetes mellitus; I71.2 Thoracic aortic aneurysm, without rupture; I25.5 Ischemic cardiomyopathy
CPT/HCPCS: 36415; 80048; 85025; 93454; 96360; 99152; 99153; C1769; C1887; C1894; J1644; J2250; J3010; J7030; Q0163; Q9967

== ENCOUNTER → 2021-10-29 09:50 | Outpatient (BNVA) | payer MEDICARE, MEDICAID, SELFPAY | PROVIDERS: PCP Family Medicine; Visit Provider Nurse Practitioner Family | DX: I25.10 Atherosclerotic heart disease of native coronary artery without angina pectoris (principal); I25.2 Old myocardial infarction | CPT/HCPCS: 36415; 80048; 99214 ==

== ENCOUNTER → 2021-12-07 10:43 | Outpatient (BNVA) | payer MEDICARE, MEDICAID, SELFPAY | PROVIDERS: PCP Family Medicine; Visit Provider Internal Medicine | DX: I71.2 Thoracic aortic aneurysm, without rupture (principal); I25.10 Atherosclerotic heart disease of native coronary artery without angina pectoris; I25.5 Ischemic cardiomyopathy; Z78.9 Other specified health status; I10 Essential (primary) hypertension; I73.9 Peripheral vascular disease, unspecified; I25.2 Old myocardial infarction | CPT/HCPCS: 99214 ==

== ENCOUNTER → 2022-02-28 10:09 | Outpatient (BNVA) | payer MEDICARE, MEDICAID, SELFPAY | PROVIDERS: PCP Family Medicine; Visit Provider Specialist | DX: M17.0 Bilateral primary osteoarthritis of knee (principal) | CPT/HCPCS: 20610; J1100; J2795; J3301 ==

== ENCOUNTER 2022-05-09 08:54 | Outpatient (CLI) | payer MEDICARE, MEDICAID, SELFPAY ==
--- NOTE | 2022-05-09 09:00 | CT_ITS ---
WS: [id number] CTA THORACIC TECHNIQUE: Contrast enhanced CTA of the thoracic aorta with coronal and sagittal reformatted images a nd maximum intensity projection (MIP) images. CLINICAL INFORMATION: Thoracic aneurysm COMPARISON: CT July 26, 2021 and December 19, 2020 DLP: 1052.[address] scans at [facility] use at least one of these dose optimization techniques: automated e xposure control; mA and/or kV adjustment per patient size (includes targeted exams where dose is matc hed to clinical indication); or iterative reconstruction. FINDINGS: Stable ectatic ascending thoracic aorta with a maximum dimension of 4.4 cm unchanged since the prior examination. Mild enlargement of the main pulmonary arteries bilaterally can be seen with pulmonary a rterial hypertension unchanged. Stable cardiomegaly. Normal caliber descending thoracic aorta. No med iastinal or hilar lymphadenopathy. Slight atelectasis LEFT lower lobe. Normal GE junction. Partially visualized RIGHT renal cyst. Mild calcification celiac and SMA origins. No axillary lymphadenopathy. Coronary calcification. LEFT vertebral artery arises from the aortic ar ch with calcification at the origin. Incidental small hepatic cysts are unchanged. Cholelithiasis. Ad renal glands are normal. Noncontrast spleen is normal. CT/CT angio chest 26390 IMPRESSION: 1. Stable ectatic ascending thoracic aorta measuring 4.4 cm in maximum dimensi on is unchanged. 2. Prominent main pulmonary arteries can be seen with pulmonary arterial hyper tension unchanged. 3. 3mm nodule RIGHT middle lobe is unchanged. 4. Stable cholelithiasis. 5. Reflux into the hepatic veins can be seen with RIGHT heart dysfunction.
[2022-05-09] MEDS: iohexol 350 mg/mL 500 mL Btl (per mL) IV (09:29)
[2022-05-09 09:34] LABS: Blood Urea Nitrogen 14 mg/dL (8-23)
== END 2022-05-09 08:55 | disposition home or self-care (01) ==
LOC: RAD 08:54
PROVIDERS: PCP Family Medicine; Visit Provider Internal Medicine
DX: I71.20 Thoracic aortic aneurysm, without rupture, unspecified (principal); R91.1 Solitary pulmonary nodule; K80.20 Calculus of gallbladder without cholecystitis without obstruction
CPT/HCPCS: 71275; 82565; 84520; Q9967

== ENCOUNTER → 2022-05-23 09:22 | Outpatient (BNVA) | payer MEDICARE, MEDICAID, SELFPAY | PROVIDERS: PCP Family Medicine; Visit Provider Specialist | DX: M75.81 Other shoulder lesions, right shoulder (principal); Z71.89 Other specified counseling; M75.01 Adhesive capsulitis of right shoulder; M19.011 Primary osteoarthritis, right shoulder | CPT/HCPCS: 20610; J1100; J2795; J3301 ==

== ENCOUNTER → 2022-06-06 11:01 | Outpatient (BNVA) | payer MEDICARE, MEDICAID, SELFPAY | PROVIDERS: PCP Family Medicine; Visit Provider Specialist | DX: M17.0 Bilateral primary osteoarthritis of knee (principal) | CPT/HCPCS: 20610; J7318 ==

== ENCOUNTER → 2022-06-14 08:59 | Outpatient (BNVA) | payer MEDICARE, MEDICAID, SELFPAY | PROVIDERS: PCP Family Medicine; Visit Provider Internal Medicine | DX: I25.10 Atherosclerotic heart disease of native coronary artery without angina pectoris (principal); I25.5 Ischemic cardiomyopathy; Z78.9 Other specified health status; I10 Essential (primary) hypertension; I73.9 Peripheral vascular disease, unspecified; I71.21 Aneurysm of the ascending aorta, without rupture; Z79.82 Long term (current) use of aspirin | CPT/HCPCS: 99214 ==

== ENCOUNTER → 2022-08-29 09:39 | Outpatient (BNVA) | payer MEDICARE, MEDICAID, SELFPAY | PROVIDERS: PCP Family Medicine; Visit Provider Specialist | DX: M75.01 Adhesive capsulitis of right shoulder (principal); Z71.89 Other specified counseling | CPT/HCPCS: 20610; J1100; J2795; J3301 ==

== ENCOUNTER → 2022-12-05 10:13 | Outpatient (BNVA) | payer MEDICARE, MEDICAID, SELFPAY | PROVIDERS: PCP Family Medicine; Visit Provider Specialist | DX: M75.01 Adhesive capsulitis of right shoulder (principal); Z71.89 Other specified counseling | CPT/HCPCS: 20610; J1100; J2795; J3301 ==

== ENCOUNTER → 2022-12-12 10:07 | Outpatient (BNVA) | payer MEDICARE, MEDICAID, SELFPAY | PROVIDERS: PCP Family Medicine; Visit Provider Specialist | DX: M17.0 Bilateral primary osteoarthritis of knee (principal); Z71.89 Other specified counseling | CPT/HCPCS: 20610; J1100; J2795; J3301 ==

== ENCOUNTER → 2022-12-13 11:21 | Outpatient (BNVA) | payer MEDICARE, MEDICAID, SELFPAY | PROVIDERS: PCP Family Medicine; Visit Provider Internal Medicine | DX: I25.10 Atherosclerotic heart disease of native coronary artery without angina pectoris (principal); R07.9 Chest pain, unspecified; I10 Essential (primary) hypertension; I71.21 Aneurysm of the ascending aorta, without rupture; I25.5 Ischemic cardiomyopathy; Z78.9 Other specified health status; I73.9 Peripheral vascular disease, unspecified; I25.2 Old myocardial infarction | CPT/HCPCS: 99214 ==

== ENCOUNTER → 2023-04-03 11:14 | Outpatient (BNVA) | payer MEDICARE, MEDICAID, SELFPAY | PROVIDERS: PCP Family Medicine; Visit Provider Specialist | DX: M17.0 Bilateral primary osteoarthritis of knee (principal) | CPT/HCPCS: 20610; J1100; J2795; J3301 ==

== ENCOUNTER → 2023-04-14 13:00 | Outpatient (BNVA) | payer MEDICARE, MEDICAID, SELFPAY | PROVIDERS: PCP Family Medicine; Visit Provider Specialist | DX: M75.01 Adhesive capsulitis of right shoulder (principal); Z71.89 Other specified counseling | CPT/HCPCS: 20610; J1040; J1100; J2795 ==

== ENCOUNTER 2023-04-22 13:53 | Outpatient (CLI) | payer MEDICARE, MEDICAID, SELFPAY ==
--- NOTE | 2023-04-22 14:00 | CT_ITS ---
WS: [id number] CTA THORACIC TECHNIQUE: Contrast enhanced CTA of the thoracic aorta with coronal and sagittal reformatted images a nd maximum intensity projection (MIP) images. CLINICAL INFORMATION: Thoracic Aneurysm COMPARISON: None. DLP: 842.[address] scans at [facility] use at least one of these dose optimization techniques: automated e xposure control; mA and/or kV adjustment per patient size (includes targeted exams where dose is matc hed to clinical indication); or iterative reconstruction. FINDINGS: Cardiomegaly. Enlarged main pulmonary arteries can be seen with pulmonary arterial hypertension. Stab le ectatic ascending thoracic aorta measuring 4.4 cm is unchanged. Normal caliber descending thoracic aorta. Mild aortic calcification. Coronary calcification. No mediastinal or hilar lymphadenopathy. N o axillary lymphadenopathy. Incidental hepatic cysts. Cholelithiasis. Adrenal glands are normal. Small RIGHT renal cyst. Small es ophageal hiatal hernia. Hypertrophic changes thoracic spine. Moderate thoracic kyphosis. Stable 3 mm nodule RIGHT middle lobe. IMPRESSION: 1. Stable ectatic ascending thoracic aorta measuring 4.4 cm in maximum dimension is unchanged. 2. Prominent main pulmonary arteries can be seen with pulmonary arterial hypertension unchanged. 3. 3mm nodule RIGHT middle lobe is unchanged. 4. Stable cholelithiasis.
[2023-04-22] MEDS: iohexol 350 mg/mL 500 mL Btl (per mL) IV (14:32)
== END 2023-04-22 13:54 | disposition home or self-care (01) ==
LOC: RAD 13:53
PROVIDERS: PCP Family Medicine; Visit Provider Internal Medicine
DX: I71.21 Aneurysm of the ascending aorta, without rupture (principal); I27.21 Secondary pulmonary arterial hypertension; R91.1 Solitary pulmonary nodule; K80.20 Calculus of gallbladder without cholecystitis without obstruction
CPT/HCPCS: 71275; Q9967

== ENCOUNTER → 2023-04-23 09:47 | Outpatient (BNVA) | payer MEDICARE, MEDICAID, SELFPAY | PROVIDERS: PCP Family Medicine; Visit Provider Otolaryngology | DX: H90.6 Mixed conductive and sensorineural hearing loss, bilateral (principal); H61.23 Impacted cerumen, bilateral; H60.312 Diffuse otitis externa, left ear | CPT/HCPCS: 69210; 99203 ==

== ENCOUNTER → 2023-05-12 15:01 | Outpatient (BNVA) | payer MEDICARE, MEDICAID, SELFPAY | PROVIDERS: PCP Family Medicine; Visit Provider Specialist | DX: M18.12 Unilateral primary osteoarthritis of first carpometacarpal joint, left hand | CPT/HCPCS: 20600; 73130; 99213; J1100; J2795; J3301 ==

== ENCOUNTER → 2023-06-17 12:33 | Outpatient (BNVA) | payer MEDICARE, MEDICAID, SELFPAY | PROVIDERS: PCP Family Medicine; Visit Provider Internal Medicine | DX: I25.10 Atherosclerotic heart disease of native coronary artery without angina pectoris (principal); R06.02 Shortness of breath; I25.5 Ischemic cardiomyopathy; Z78.9 Other specified health status; I10 Essential (primary) hypertension; I73.9 Peripheral vascular disease, unspecified; I71.21 Aneurysm of the ascending aorta, without rupture | CPT/HCPCS: 99214 ==

== ENCOUNTER 2023-06-27 11:15 | Outpatient (CLI) | payer MEDICARE, MEDICAID, SELFPAY ==
--- NOTE | 2023-06-27 12:15 | USCV_ITS ---
Oskar Varner Age: 78 Gender: M : 1945 Exam Date: 06/27/2023 11:49 Ordering Phys: Matt Juares M.D ([email or web address]) Technologist: ROBBIE Exam Location: [facility] [place] Indication: CHEST PAIN BP: 159 / 90 HR: 58 Rhythm: Sinus Technical Quality: Adequate MEASUREMENTS (Male / Female) Normal Values 2D ECHO LV Diastolic Diameter PLAX 5.9 cm 4.2 - 5.9 / 3.9 - 5.3 cm IVS Diastolic Thickness 1.0 cm 0.6 - 1.0 / 0.6 - 0.9 cm IVS Systolic Thickness 0.7 cm LVPW Diastolic Thickness 1.2 cm 0.6 - 1.0 / 0.6 - 0.9 cm LVPW Systolic Thickness 2.7 cm LVOT Diameter 2.0 cm LV Ejection Fraction 2D Teich 55.2 % LV Ejection Fraction MOD 2C 49.0 % LV Ejection Fraction 2C AL 48.5 % LA Diameter 4.8 cm RA Systolic Volume 4C AL 31.7 ml RA Systolic Volume 4C MOD 31.3 ml LA Sys Volume AL 60.0 cm cubed Aorta at Sinotubular Diameter 2.3 cm IVC Diameter 1.8 cm M-MODE LA Ao Ratio MM 0.8 AV Cusp Separation MM 1.5 cm DOPPLER AV Peak Velocity 300.3 cm/s LVOT Peak Velocity 64.0 cm/s AV Area Cont Eq vti 1.5 cm squared AV Area Cont Eq pk 0.7 cm squared MV Peak Velocity 281.3 cm/s MV Area PHT 3.6 cm squared Mitral E to A Ratio 2.1 TR Peak Velocity 288.0 cm/s TR Peak Gradient 33.2 mmHg TR Mean Velocity 228.0 cm/s TR Mean Gradient 22.6 mmHg TR Velocity Time Integral 102.8 cm TV Peak E Velocity 40.0 cm/s Right Atrial Pressure 3.0 mmHg Pulmonary Artery Systolic Pressu 36.2 mmHg PV Peak Velocity 100.0 cm/s RV Ejection Time 0.3 s FINDINGS Left Ventricle Left ventricle is mildly dilated. LV systolic function is moderately reduced with EF of 35-40%. Moderate to severe global hypokinesis with akinetic apical wall. Right Ventricle Normal in size and function Right Atrium Normal in size Left Atrium Dilated Mitral Valve Structurally normal mitral valve. Moderate mitral regurgitation. Aortic Valve Structurally normal aortic valve. Mild to moderate aortic regurgitation. Tricuspid Valve Mild tricuspid regurgitation. RVSP is 35 to 40 mmHg. Mild pulmonary pretension. Pulmonic Valve Mild pulmonic regurgitation. Pericardium Normal Aorta Normal in size IVC Not well vsualized CONCLUSIONS LV systolic function is moderately reduced with EF of 35-40% Moderate mitral regurgitation Mild to moderate aortic regurgitation Mild tricuspid regurgitation Mild pulmonary hypertension Mild pulmonic regurgitation Compared to prior echo from 2020, no significant changes are seen Matt Juares MD (Electronically Signed) Final Date: 29 June 2023 11:31 S
== END 2023-06-27 11:16 | disposition home or self-care (01) ==
LOC: RAD 11:16
PROVIDERS: PCP Family Medicine; Visit Provider Internal Medicine
DX: I08.3 Combined rheumatic disorders of mitral, aortic and tricuspid valves (principal); I27.20 Pulmonary hypertension, unspecified; R07.9 Chest pain, unspecified
CPT/HCPCS: 93306

== ENCOUNTER → 2023-07-04 08:52 | Outpatient (BNVA) | payer MEDICARE, MEDICAID, SELFPAY | PROVIDERS: PCP Family Medicine; Visit Provider Specialist | DX: M17.0 Bilateral primary osteoarthritis of knee (principal); Z71.89 Other specified counseling | CPT/HCPCS: 20610; J1100; J2795; J3301 ==

== ENCOUNTER → 2023-07-11 09:49 | Outpatient (BNVA) | payer MEDICARE, MEDICAID, SELFPAY | PROVIDERS: PCP Family Medicine; Visit Provider Specialist | DX: M75.81 Other shoulder lesions, right shoulder (principal); Z71.89 Other specified counseling | CPT/HCPCS: 20610; J1100; J2795; J3301 ==

== ENCOUNTER → 2023-07-31 10:29 | Outpatient (BNVA) | payer MEDICARE, MEDICAID, SELFPAY | PROVIDERS: PCP Family Medicine; Visit Provider Otolaryngology | DX: H90.6 Mixed conductive and sensorineural hearing loss, bilateral (principal); H61.23 Impacted cerumen, bilateral | CPT/HCPCS: 69210; 99212 ==

== ENCOUNTER → 2023-10-10 09:41 | Outpatient (BNVA) | payer MEDICARE, MEDICAID, SELFPAY | PROVIDERS: PCP Family Medicine; Visit Provider Specialist | DX: M17.0 Bilateral primary osteoarthritis of knee (principal); Z71.89 Other specified counseling | CPT/HCPCS: 20610; J1100; J2795; J3301 ==

== ENCOUNTER → 2023-10-17 10:00 | Outpatient (BNVA) | payer MEDICARE, MEDICAID, SELFPAY | PROVIDERS: PCP Family Medicine; Visit Provider Specialist | DX: M75.81 Other shoulder lesions, right shoulder (principal); M19.011 Primary osteoarthritis, right shoulder; M75.01 Adhesive capsulitis of right shoulder | CPT/HCPCS: 20610; J1100; J2795; J3301 ==

== ENCOUNTER → 2023-12-23 12:18 | Outpatient (BNVA) | payer MEDICARE, MEDICAID, SELFPAY | PROVIDERS: PCP Family Medicine; Visit Provider Internal Medicine | DX: I25.10 Atherosclerotic heart disease of native coronary artery without angina pectoris (principal); I25.5 Ischemic cardiomyopathy; Z78.9 Other specified health status; I10 Essential (primary) hypertension; I73.9 Peripheral vascular disease, unspecified; I71.20 Thoracic aortic aneurysm, without rupture, unspecified | CPT/HCPCS: 99214 ==

== ENCOUNTER 2024-01-15 08:53 | Inpatient (IN) | payer MEDICARE, MEDICAID, SELFPAY ==
[2024-01-15] VITALS (38 sets, daily range): BP systolic 84–109; BP diastolic 52–82; PULSE 42–79; RESP 12–29; TEMP 36.7–37.1; O2SAT 85–98; BMI 27.6
--- NOTE | 2024-01-15 | USCV_ITS ---
Oskar Varner Age: 78 Gender: M : 1945 Exam Date: 01/15/2024 Ordering Phys: Artie Goldman MD Technologist: Exam Location: Indication: BP: / HR: Rhythm: Sinus Technical Quality: MEASUREMENTS (Male / Female) Normal Values FINDINGS Left Ventricle Mild left ventricle hypertrophy. Severely reduced left ventricle systolic function. Marked hypokinesis of inferior, inferoseptal, inferoapical and basal mid inferolateral wall segments. Estimated LVEF 25%. Right Ventricle Normal right ventricular size and systolic function. Right Atrium Mildly dilated right atrium Left Atrium Dilated left atrium Mitral Valve Mildly thickened mitral valve there is moderate mitral regurgitation with a central jet. Aortic Valve Thickened aortic valve. Mild aortic regurgitation no aortic stenosis. Tricuspid Valve Structurally normal tricuspid valve. Mild tricuspid valve regurgitation. Pulmonic Valve Structurally normal pulmonic valve. Mild pulmonary valve regurgitation. Tricuspid valve gradient 40 mmHg. Pericardium Normal Aorta Normal size aortic root and proximal ascending aorta. IVC Dilated IVC with blunt respiratory variation. CONCLUSIONS Severely reduced LV systolic function. Estimated LVEF 25%. Mild hypokinesis of inferior, inferoseptal inferoapical and mid basal inferolateral wall segments. Moderate mitral regurgitation. Mild aortic regurgitation. Elevated right heart and pulmonary pressures. Pulmonary artery systolic pressure 45 to 50 mmHg. Peter Mansfield MD (Electronically Signed) Final Date: 16 January 2024 15:03 S
--- NOTE | 2024-01-15 09:03 | ECG_ITS ---
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 Measurements Intervals [place] Rate: 53 P: 24 FL: 219 QRS: -38 QRSD: 100 T: -68 QT: 452 QTc: 427 Interpretive Statements SINUS BRADYCARDIA WITH FIRST DEGREE AV BLOCK INFERIOR MYOCARDIAL INFARCTION , OF INDETERMINATE AGE MODERATE T-WAVE ABNORMALITY, CONSIDER LATERAL ISCHEMIA [-0.1+ mV T-WAVE IN I/aVL/V5/V6] Compared to ECG 01/15/2024 08:54:03 T-wave abnormality now present Possible ischemia now present Myocardial infarct finding still present Electronically Signed On 01-15-2024 12:08:16 CDT by Peter Mansfield M.D. [email or web address]
--- NOTE | 2024-01-15 09:08 | ECG_ITS ---
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 Measurements Intervals [place] Rate: 56 P: 24 [place]: 230 QRS: -38 QRSD: 102 T: -66 QT: 437 QTc: 423 Interpretive Statements SINUS BRADYCARDIA WITH FIRST DEGREE AV BLOCK INFERIOR MYOCARDIAL INFARCTION , OF INDETERMINATE AGE [40+ ms Q WAVE AND/OR ST/T ABNORMALITY IN II/aVF] Compared to ECG 02/01/2019 03:58:31 First degree AV block now present Electronically Signed On 01-15-2024 12:09:13 CDT by Peter Mansfield M.D. [email or web address]
--- NOTE | 2024-01-15 09:11 | ED_ITS ---
HPI - Chest Pain 2 General: Chief Complaint: Chest Pain Stated Complaint: CP, SOB Time Seen by Provider: 01/15/24 08:57 Source: patient Mode of arrival: ambulatory Limitations: no limitations History of Present Illness: 78-year-old male who states that he has had a history of heart disease he also has a history of a thoracic ascending aneurysm. He states that since last night has been having pressure pain in the center of his chest. He states that pain seems to come and go denies any worse improving factors he rates his pain a 2 out of 10 currently he denies any vomiting or diarrhea Associated symptoms: Deny abdominal pain, dyspnea, fever(s), nausea or vomiting Related Data Home Medications Medication Instructions Recorded Confirmed levothyroxine 150 mcg capsule 150 mcg PO DAILY 05/13/19 01/15/24 Co Q-10 100 mg PO DAILY 06/08/20 01/15/24 Triple Magnesium Complex 400 mg PO DAILY 06/08/20 01/15/24 beetroot 4,000 mg PO BID 12/20/20 01/15/24 testosterone cypionate 200 mg/mL 200 mg SUBCUT Q21D 03/19/21 01/15/24 intramuscular oil green lipped mussel 500 mg PO BID 06/22/21 01/15/24 potassium citrate 99 mg capsule 99 mg PO BID 12/13/22 01/15/24 Bifidobacterium infantis 4 mg 1,500 mmu cells PO DAILY 01/15/24 01/15/24 capsule (Align) acetylcarnitine 500 mg capsule 500 mg PO DAILY 01/15/24 01/15/24 amino acids (Amino Acid capsule) 1 cap PO BID 01/15/24 01/15/24 aspirin 81 mg tablet,delayed 81 mg PO DAILY 01/15/24 01/15/24 release cholecalciferol (vitamin D3) 50 50 mcg PO DAILY 01/15/24 01/15/24 mcg (2,000 unit) tablet (Vitamin D3) lubiprostone 8 mcg capsule 8 mcg PO BID 01/15/24 01/15/24 vitamin B complex 1 tab PO DAILY 01/15/24 01/15/24 zinc sulfate 50 mg zinc (220 mg) 50 mg PO DAILY 01/15/24 01/15/24 tablet Previous Rx's Medication Instructions Recorded amlodipine 2.5 mg tablet 2.5 mg PO DAILY #30 tabs 10/29/21 omeprazole 20 mg capsule,delayed 20 mg PO DAILY #90 caps 12/10/21 release nitroglycerin 0.4 mg sublingual 0.4 mg sublingual Q5M PRN chest 08/02/22 tablet (Nitrostat) pain #25 tabs carvedilol 3.125 mg tablet (Coreg) 3.125 mg PO BID #180 tabs 12/23/23 valsartan 40 mg tablet 40 mg PO BID #180 tabs 12/23/23 Allergies Allergy/AdvReac Type Severity Reaction Status Date / Time Btdtalq-WHH-RjA Reductase Allergy Unknown Unknown Verified 12/23/23 12:30 Inhibitor Review of Systems 2 Const: Denies: fever(s), chills, body aches or change in appetite ENMT: Denies: throat pain or dental pain Card: Reports: chest pain Resp: Denies: dyspnea GI: Denies: abdominal pain, nausea, vomiting or diarrhea : Denies: dysuria Musc: Denies: neck pain or back pain Skin/Breast: Denies: rash Neuro: Denies: headache(s) Psych: Denies: depression Jose Alberto/Lymph: Denies: easy bruising All/Imm: Denies: urticaria PFSH ED 2 PFSH: Medical History Hiatal hernia PAD (peripheral artery disease) Chest pain Thoracic ascending aortic aneurysm Ischemic cardiomyopathy Anterior wall myocardial infarction Statin intolerance Carotid bruit Erectile dysfunction GERD (gastroesophageal reflux disease) Dyslipidemia ASHD (arteriosclerotic heart disease) Surgical History History of heart artery stent Family History Mother , AGE 73 Congestive heart failure (CHF) Other Diabetes Hypertension Social History Smoking and tobacco/nicotine status: never used tobacco/nicotine Alcohol intake: current Alcohol intake frequency: 0-2 Drinks per Day Alcohol type: wine Substance/Drug Use: never Marital status: service: No Current occupational status: retired Physical Exam 2 Const: COMMON NORMALS: no acute distress, patient oriented x3 and healthy appearing HENMT: COMMON NORMALS: normocephalic and atraumatic HEAD & SCALP: n ormocephalic and atraumatic Eye: COMMON NORMALS: conjunctivae normal CONJUNCTIVA: Yes conjunctivae normal Neck/C-Spine: COMMON NORMALS: full ROM and supple Chest: COMMONS NORMALS: normal inspection of the chest Resp: COMMON NORMALS: normal respiratory effort, No retractions, No use of accessory muscles and clear to auscultation bilaterally AUSCULTATION: clear to auscultation bilaterally Cardio: COMMON NORMALS: regular rate, regular rhythm and No murmurs present (Cardio) RATE: regular rate RHYTHM: regular rhythm GI: COMMON NORMALS: Normal to inspection, nondistended, normoactive bowel sounds present, Soft to palpation, non-tender and no masses PALPATION: Yes Soft to palpation Extremity: COMMON NORMALS: normal to inspection and full ROM Neuro: COMMON NORMALS: patient oriented x3, moves all extremities and no focal motor deficits Psych: COMMON NORMALS: mental status grossly normal, Normal thought process present and cooperative THOUGHT PROCESS: Normal thought process present Skin: COMMON NORMALS: no rashes or lesions noted and no wounds GENERAL SKIN EXAM: no rashes or lesions noted Course 2 Vital Signs: Vital signs: Vital Signs Temperature 98.1 F 01/15/24 08:59 Pulse Rate 71 01/15/24 08:59 Respiratory Rate 17 01/15/24 10:03 Blood Pressure 109/73 01/15/24 08:59 Pulse Oximetry 98 01/15/24 08:59 Oxygen Delivery Me thod Room Air 01/15/24 08:59 MDM - Chest Pain Medical Decision Making Patient presents here with chest pain he does have an elevated troponin no ST elevation on his leads he is continue have some chest pain here had spoke to client engagement specialist who seen patient in the ER will give him Plavix along with heparin and they are to take patient to the [facility] for unstable angina. Medical Records I reviewed the patient's medical records. Lab Data I reviewed the patient's lab results. 01/15/24 09:13 01/15/24 09:13 Laboratory Results WBC 11.60 10^3/uL (3.29-11.43) H 01/15/24 09:13 RBC 5.18 10^6/uL (3.85-5.65) 01/15/24 09:13 Hgb 16.10 g/dL (11.27-16.99) 01/15/24 09:13 Hct 47.8 % (37-53) 01/15/24 09:13 MCV 92.3 fl (82-101) 01/15/24 09:13 MCH 31.1 pg (27-33) 01/15/24 09:13 MCHC 33.7 g/dL (30-55) 01/15/24 09:13 RDW 14.2 % (12.1-15.1) 01/15/24 09:13 Plt Count 208 10^3/cmm (157-399) 01/15/24 09:13 MPV 9.6 fL (7.4-10.4) 01/15/24 09:13 Neut % (Auto) 80.6 % 01/15/24 09:13 Lymph % (Auto) 10.6 % 01/15/24 09:13 Gregg % (Auto) 7.6 % 01/15/24 09:13 Eos % (Auto) 0.6 % 01/15/24 09:13 Baso % (Auto) 0.3 % 01/15/24 09:13 Neut # (Auto) 9.34 10^3/uL (1.8-7.7) H 01/15/24 09:13 Lymph # (Auto) 1.2 10^3/uL (0.8-4.8) 01/15/24 09:13 Gregg # (Auto) 0.9 10^3/uL (0.2-0.9) 01/15/24 09:13 Eos # (Auto) 0.1 10^3/uL (0.0-0.8) 01/15/24 09:13 Baso # (Auto) 0.0 10^3/uL (0.0-0.1) 01/15/24 09:13 Nucleated RBC % (auto) 0 % 01/15/24 09:13 Nucleated RBCs # 0.0 /100WBC 01/15/24 09:13 Sodium 137 mmol/L (136-145) 01/15/24 09:13 Potassium 4.6 mmol/L (3.5-5.1) 01/15/24 09:13 Chloride 101 mmol/L (98-107) 01/15/24 09:13 Carbon Dioxide 26 mmol/L (22-29) 01/15/24 09:13 Anion Gap 14.6 (5-19) 01/15/24 09:13 BUN 27 mg/dL (8-23) H 01/15/24 09:13 Creatinine 1.5 mg/dL (0.7-1.2) H 01/15/24 09:13 GFR Calculation Not Reportable 01/15/24 09:13 Glucose 108 mg/dL (65-115) 01/15/24 09:13 Calculated Osmolality 290 mOsm/kg (285-295) 01/15/24 09:13 Calcium 8.8 mg/dL (8.5-10.5) 01/15/24 09:13 Total Bilirubin 0.7 mg/dL (0.15-1.2) 01/15/24 09:13 AST 188 U/L (0-40) H 01/15/24 09:13 ALT 36 U/L (0-41) 01/15/24 09:13 Alkaline Phosphatase 58 U/L (40-130) 01/15/24 09:13 Troponin T Baseline 1810 ng/L (0-15) H* 01/15/24 09:13 Total Protein 6.5 g/dL (6.6-8.7) L 01/15/24 09:13 Albumin 4.4 g/dL (3.5-5.2) 01/15/24 09:13 Globulin 2.1 g/dL (1.3-4.6) 01/15/24 09:13 Lipase 24 U/L (13-60) 01/15/24 09:13 All radiology interpretation(s) finalized by discharge EKG Data EKG 1: I personally reviewed and interpreted this EKG as follows: EKG interpretation date: 01/15/24 EKG interpretation time: 08:54 Interpretation: sinus delgado hr [address] elevation qrs 12 qtc 428 Discharge Plan Discharge Patient Disposition: Admitted As Inpatient Clinical Impression: Non-ST elevation NJ (NSTEMI) Condition: Stable Prescriptions: No Action levothyroxine 150 mcg capsule 150 mcg PO DAILY beetroot 4,000 mg PO BID testosterone cypionate 200 mg/mL oil 200 mg SUBCUT Q21D green lipped mussel 500 mg PO BID Rx Instructions: [id number] tablet carvedilol [Coreg] 3.125 mg tablet 3.125 mg PO BID Qty: 180 3RF Rx Instructions: must administer with a meal/food valsartan 40 mg tablet 40 mg PO BID Qty: 180 3RF amlodipine 2.5 mg tablet 2.5 mg PO DAILY Qty: 30 2RF potassium citrate 99 mg capsule 99 mg PO BID omeprazole 20 mg capsule,delayed release(DR/EC) 20 mg PO DAILY Qty: 90 3RF nitroglycerin [Nitrostat] 0.4 mg tablet, sublingual 0.4 mg sublingual Q5M PRN (Reason: chest pain) Qty: 25 1RF Rx Instructions: do not exceed 3 doses per episode Co Q-10 100 mg tablet 100 mg PO DAILY Triple Magnesium Complex 400 mg tablet 400 mg PO DAILY acetylcarnitine 500 mg Capsule 500 mg PO DAILY Amino Acid Capsule 1 cap PO BID aspirin [Aspir-81] 81 mg Tablet,Delayed Release (Dr/Ec) 81 mg PO DAILY zinc sulfate 50 mg zinc (220 mg) Tablet 50 mg PO DAILY vitamin B complex Tablet 1 tab PO DAILY Align 4 mg Capsule 1,500 mmu cells PO DAILY Rx Instructions: administer with a meal lubiprostone 8 mcg capsule 8 mcg PO BID cholecalciferol (vitamin D3) [Vitamin D3] 50 mcg (2,000 unit) Tablet 50 mcg PO DAILY Referrals: Darryl Victor [Primary Care Provider] - Coding Level of Care Code ED 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
[2024-01-15 09:24] LABS: Basophils % 0.3 %; Eosinophils # 0.1 10^3/uL (0.0-0.8); Eosinophils % 0.6 %; Hematocrit 47.8 % (37-53); Lymphocytes # 1.2 10^3/uL (0.8-4.8); Lymphocytes % 10.6 %; Mean Corpuscular HGB Conc 33.7 g/dL (30-55); Mean Corpuscular Hemoglobin 31.1 pg (27-33); Mean Corpuscular Volume 92.3 fl (82-101); Mean Platelet Volume 9.6 fL (7.4-10.4); Monocytes # 0.9 10^3/uL (0.2-0.9); Monocytes % 7.6 %; Neutrophils # 9.34 10^3/uL (1.8-7.7); Neutrophils % 80.6 %; Nucleated Red Blood Cells % 0 %; Platelet Count 208 10^3/cmm (157-399); Red Blood Count 5.18 10^6/uL (3.85-5.65); Red Cell Distribution Width 14.2 % (12.1-15.1)
[2024-01-15] MEDS: aspirin 81 mg Chew Tablet 324 MG PO (09:31)
[2024-01-15 09:43] LABS: Alanine Aminotransferase 36 U/L (0-41); Albumin Level 4.4 g/dL (3.5-5.2); Alkaline Phosphatase 58 U/L (40-130); Anion Gap 14.6 (5-19); Aspartate Amino Transferase 188 U/L (0-40); Blood Urea Nitrogen 27 mg/dL (8-23); Calcium 8.8 mg/dL (8.5-10.5); Carbon Dioxide 26 mmol/L (22-29); Chloride 101 mmol/L (98-107); Globulin 2.1 g/dL (1.3-4.6); Glucose 108 mg/dL (65-115); Lipase 24 U/L (13-60); Osmolality Calculated 290 mOsm/kg (285-295); Potassium 4.6 mmol/L (3.5-5.1); Sodium 137 mmol/L (136-145); Total Bilirubin 0.7 mg/dL (0.15-1.2); Total Protein 6.5 g/dL (6.6-8.7)
[2024-01-15 09:49] LABS: Creatinine Clr Calc Pharmacy 47.2034; Troponin(5th) Baseline 1810 ng/L (0-15)
[2024-01-15] MEDS: sodium chloride 0.9% 1,000 ML 999 ML IV (10:00)
[2024-01-15] MEDS: clopidogrel 300 mg Tablet 600 MG PO (10:02)
[2024-01-15] MEDS: morphine 4 mg/mL SDV 1 mL IVP (10:03)
[2024-01-15] MEDS: heparin 5,000 unit/mL INJ 1 mL 4000 UNIT IVP (10:05)
[2024-01-15] MEDS: ondansetron 2 mg/ML SDV 2 mL 4 MG IVP (10:05)
--- NOTE | 2024-01-15 10:08 | PC.PHAR ---
Pt has current list of prescription medications and a long list of otc's.
--- NOTE | 2024-01-15 10:35 | P.HP_ITS ---
Providers/Chief Complaint 2 Admitting Physician: Collin Junior MD Primary Care Provider: Darryl Victor Chief Complaint: CP, SOB History of Present Illness Oskar Varner is a 78 year old male with known history of coronary disease, thoracic aortic aneurysm, other medical problems who presents with chest discomfort substernal pressure without radiation since yesterday at 5 PM. He reports it has been constant, but the severity of it varies some. He believes it is similar to some of the cardiac pain he has had in the past. He did have some shortness of breath, diaphoresis, and nausea with it when it started. It is currently less severe, around 2/. EKG did not show ST elevation. He denies any recent fevers, cough, other illness recently. Past history from a cardiac standpoint is concerning for LAD stenting in the past, separate ostium for circumflex and LAD, thoracic aortic aneurysm of 4.4 cm that was last imaged April in 2023 and stable, and an EF by echo in June 2023 demonstrating 35 to 40%, moderate MR and moderate AR. He reports he has tried statins multiple times, and cannot take them secondary to muscle pain. In the emergency department he received aspirin, Plavix, heparin, morphine, fluids. Review of Systems 2 General: Reports: 10 or more systems reviewed and unremarkable except in HPI and below Card: Reports: chest pain Resp: Reports: dyspnea GI: Reports: nausea; Denies: abdominal pain, vomiting, hematochezia or melena Medications/Allergies Home Medications Medication Instructions Recorded Confirmed Last Taken Type levothyroxine 150 mcg capsule 150 mcg PO DAILY 05/13/19 01/15/24 01/15/24 History Co Q-10 100 mg PO DAILY 06/08/20 01/15/24 01/15/24 History Triple Magnesium Complex 400 mg PO DAILY 06/08/20 01/15/24 01/15/24 History beetroot 4,000 mg PO BID 12/20/20 01/15/24 01/15/24 History testosterone cypionate 200 mg/mL 200 mg SUBCUT Q21D 03/19/21 01/15/24 10/21/21 08:00 History intramuscular oil green lipped mussel 500 mg PO BID 06/22/21 01/15/24 01/15/24 History amlodipine 2.5 mg tablet 2.5 mg PO DAILY #30 tabs 10/29/21 01/15/24 01/15/24 Rx omeprazole 20 mg capsule,delayed 20 mg PO DAILY #90 caps 12/10/21 01/15/24 01/15/24 Rx release nitroglycerin 0.4 mg sublingual 0.4 mg sublingual Q5M PRN chest 08/02/22 01/15/24 01/14/24 Rx tablet (Nitrostat) pain #25 tabs potassium citrate 99 mg capsule 99 mg PO BID 12/13/22 01/15/24 01/15/24 History carvedilol 3.125 mg tablet (Coreg) 3.125 mg PO BID #180 tabs 12/23/23 01/15/24 01/15/24 Rx valsartan 40 mg tablet 40 mg PO BID #180 tabs 12/23/23 01/15/24 01/15/24 Rx Bifidobacterium infantis 4 mg 1,500 mmu cells PO DAILY 01/15/24 01/15/24 01/15/24 History capsule (Align) acetylcarnitine 500 mg capsule 500 mg PO DAILY 01/15/24 01/15/24 01/15/24 History amino acids (Amino Acid capsule) 1 cap PO BID 01/15/24 01/15/24 01/15/24 History aspirin 81 mg tablet,delayed 81 mg PO DAILY 01/15/24 01/15/24 01/15/24 History release cholecalciferol (vitamin D3) 50 50 mcg PO DAILY 01/15/24 01/15/24 01/15/24 History mcg (2,000 unit) tablet (Vitamin D3) lubiprostone 8 mcg capsule 8 mcg PO BID 01/15/24 01/15/24 01/15/24 History vitamin B complex 1 tab PO DAILY 01/15/24 01/15/24 01/15/24 History zinc sulfate 50 mg zinc (220 mg) 50 mg PO DAILY 01/15/24 01/15/24 01/15/24 History tablet Allergies Allergy/AdvReac Type Severity Reaction Status Date / Time Dymoaet-PDG-FsP Reductase Allergy Unknown Unknown Verified 12/23/23 12:30 Inhibitor PFSH Acute 2 PFSH: Medical History Hiatal hernia PAD (peripheral artery disease) Chest pain Thoracic ascending aortic aneurysm Ischemic cardiomyopathy Anterior wall myocardial infarction Statin intolerance Carotid bruit Erectile dysfunction GERD (gastroesophageal reflux disease) Dyslipidemia ASHD (arteriosclerotic heart disease) Surgical History History of heart artery stent Family History Mother , AGE 73 Congestive heart failure (CHF) Other Diabetes Hypertension Social History Smoking and tobacco/nicotine status: never used tobacco/nicotine Alcohol intake: current Alcohol intake frequency: 0-2 Drinks per Day Alcohol type: wine Substance/Drug Use: never Marital status: service: No Current occupational status: retired Vitals/I&O/Wt Last Vital Signs Temp 98.1 F 01/15/24 08:59 Pulse 71 01/15/24 08:59 Resp 17 01/15/24 10:03 BP 109/73 01/15/24 08:59 Pulse Ox 98 01/15/24 08:59 O2 Del Method Room Air 01/15/24 08:59 01/14/24 01/15/24 01/15/24 22:59 06:59 14:59 Intake Total 183.15 / 183.15 Balance 183.15 / 183.15 Weight last 48 hrs Weight 92.533 kg Physical Exam 2 Narrative: General exam is a white male, no distress, but is complaining of chest discomfort HEENT: Atraumatic normocephalic. Oropharynx clear Neck is supple no lymphadenopathy thyromegaly Cardiovascular regular rate and rhythm with a 2/6 systolic murmur Lungs clear Abdomen is soft nontender positive bowel sounds. No obvious organomegaly exams deferred Extremities no cyanosis clubbing or edema, cap refill brisk Skin no rash Neuro no obvious focal deficits. Data 01/15/24 09:13 01/15/24 09:13 Other Labs: Last EKG which I reviewed demonstrates sinus rhythm, left axis deviation, small Q waves inferiorly, nonspecific ST-T wave flattening V4 through [address] elevation has been noted on any of his EKGs. I have ordered a chest x-ray. LFTs are normal AST 188 Troponin 1810 Lipase, albumin, calcium normal A&P Assessment and plan (1) Non-ST elevation PA (NSTEMI): Patient presents with chest pain consistent with unstable angina Troponin elevation is consistent with non-ST elevation myocardial infarction Plavix, aspirin, heparin have been initiated Patient reports unable to tolerate statins. Could consider Repatha as an outpatient. Check lipid profile tomorrow. (2) Thoracic ascending aortic aneurysm: Stable as of last imaging test done earlier this year Chest x-ray with no change Continue to monitor (3) Hypertension: Continue current medications (4) Chronic kidney disease: Avoid anti-inflammatories Hydrate after angiogram Recheck BMP tomorrow Plan Multiple other medical problems as outlined in past medical history Full code SCDs for DVT prophylaxis. Has received heparin dosing, as well during angiogram. Will readdress pharmacologic DVT prophylaxis tomorrow depending upon angiogram results and hospital course. Attestations 2 Medical Necessity Statement*: Will need greater than 2 midnight stay for evaluation and treatment of unstable angina with non-ST elevation myocardial infarction with need to emergently go to angiogram secondary to persistent pain Diagnoses Non-ST elevation PA (NSTEMI) I21.4 Thoracic ascending aortic aneurysm I71.2 Hypertension I10 Chronic kidney disease N18.9 Time Spent (min) 56
--- NOTE | 2024-01-15 10:40 | XR_ITS ---
WS: [id number] Portable AP upright chest, 01/15/2024 Clinical Data: chest pain Comparison: Portable chest, 01/31/2019. Findings: No nodules, masses or effusions are seen. The heart is enlarged. The aortic arch shows mild tortuosity. No pneumonia or pneumothorax is seen and the pulmonary vascularity is not increased. Mon itor leads are on the chest wall. XR/XR chest 1V portable [id number] Impression: Cardiomegaly and atherosclerosis.
--- NOTE | 2024-01-15 10:41 | PM.CONSULT ---
Providers/Reason For Consult Consulting Physician/Specialty*: Cardiology/Dr. Mansfield Reason for Consult*: Chest pain/NSTEMI Requesting Physician: Dr. Santiago Primary Care Provider: Darryl Victor History of Present Illness History of Present Illness Oskar Varner is a 78 year old male with a previously known coronary to disease, angioplasty for NJ 5 years ago presented to the ER with ongoing chest pain since last night. The pain started at rest around 5 PM yesterday evening it eased off however it stayed most part of the night. On arrival to the ER he still has a pain 5 out of 10. There are some shortness of air with the pain last night. No shortness of air since. He still have a mild constant chest discomfort. His blood pressure is on the lower side 95-105 systolic. Heart rate in the 60s. EKG showed Q waves in the inferior leads with ST changes. There are also ST depression in the anterolateral leads. Troponin cardiac enzymes significantly elevated, NSTEMI. Patient has been very compliant with the medication and his follow-up. Since last PCI in 2018 he has not had any further chest pain. His blood pressure medications were recently adjusted. Overall he has a decent quality of life and will able to do most of his work by himself. Review of Systems Narrative: Detailed 10 point systemic review unremarkable except for as mentioned above in the history of present illness. Medications/Allergies Home Medications Medication Instructions Recorded Confirmed Last Taken Type levothyroxine 150 mcg capsule 150 mcg PO DAILY 05/13/19 01/15/24 01/15/24 History Co Q-10 100 mg PO DAILY 06/08/20 01/15/24 01/15/24 History Triple Magnesium Complex 400 mg PO DAILY 06/08/20 01/15/24 01/15/24 History beetroot 4,000 mg PO BID 12/20/20 01/15/24 01/15/24 History testosterone cypionate 200 mg/mL 200 mg SUBCUT Q21D 03/19/21 01/15/24 10/21/21 08:00 History intramuscular oil green lipped mussel 500 mg PO BID 06/22/21 01/15/24 01/15/24 History amlodipine 2.5 mg tablet 2.5 mg PO DAILY #30 tabs 10/29/21 01/15/24 01/15/24 Rx omeprazole 20 mg capsule,delayed 20 mg PO DAILY #90 caps 12/10/21 01/15/24 01/15/24 Rx release nitroglycerin 0.4 mg sublingual 0.4 mg sublingual Q5M PRN chest 08/02/22 01/15/24 01/14/24 Rx tablet (Nitrostat) pain #25 tabs potassium citrate 99 mg capsule 99 mg PO BID 12/13/22 01/15/24 01/15/24 History carvedilol 3.125 mg tablet (Coreg) 3.125 mg PO BID #180 tabs 12/23/23 01/15/24 01/15/24 Rx valsartan 40 mg tablet 40 mg PO BID #180 tabs 12/23/23 01/15/24 01/15/24 Rx Bifidobacterium infantis 4 mg 1,500 mmu cells PO DAILY 01/15/24 01/15/24 01/15/24 History capsule (Align) acetylcarnitine 500 mg capsule 500 mg PO DAILY 01/15/24 01/15/24 01/15/24 History amino acids (Amino Acid capsule) 1 cap PO BID 01/15/24 01/15/24 01/15/24 History aspirin 81 mg tablet,delayed 81 mg PO DAILY 01/15/24 01/15/24 01/15/24 History release cholecalciferol (vitamin D3) 50 50 mcg PO DAILY 01/15/24 01/15/24 01/15/24 History mcg (2,000 unit) tablet (Vitamin D3) lubiprostone 8 mcg capsule 8 mcg PO BID 01/15/24 01/15/24 01/15/24 History vitamin B complex 1 tab PO DAILY 01/15/24 01/15/24 01/15/24 History zinc sulfate 50 mg zinc (220 mg) 50 mg PO DAILY 01/15/24 01/15/24 01/15/24 History tablet Allergies Allergy/AdvReac Type Severity Reaction Status Date / Time Jabiewo-UBM-CiT Reductase Allergy Unknown Unknown Verified 12/23/23 12:30 Inhibitor Current Medications Generic Name Dose Route Start Last Admin Trade Name Freq PRN Reason Stop Dose Admin Sodium Chloride 1,000 mls @ 999 mls/hr 01/15/24 09:56 01/15/24 10:11 Sodium Chloride 0.9% IV 01/15/24 10:56 999 mls/hr .Q1H1M ONE Infusion PFSH Acute PFSH: Medical History Hiatal hernia PAD (peripheral artery disease) Chest pain Thoracic ascending aortic aneurysm Ischemic cardiomyopathy Anterior wall myocardial infarction Statin intolerance Carotid bruit Erectile dysfunction GERD (gastroesophageal reflux disease) Dyslipidemia ASHD (arteriosclerotic heart disease) Surgical History History of heart artery stent Family History Mother , AGE 73 Congestive heart failure (CHF) Other Diabetes Hypertension Social History Smoking and tobacco/nicotine status: never used tobacco/nicotine Alcohol intake: current Alcohol intake frequency: 0-2 Drinks per Day Alcohol type: wine Substance/Drug Use: never Marital status: service: No Current occupational status: retired Vitals/I&O/Wt Last Vital Signs Temp 98.1 F 01/15/24 08:59 Pulse 71 01/15/24 08:59 Resp 17 01/15/24 10:03 BP 109/73 01/15/24 08:59 Pulse Ox 98 01/15/24 08:59 O2 Del Method Room Air 01/15/24 08:59 01/14/24 01/15/24 01/15/24 22:59 06:59 14:59 Intake Total 183.15 / 183.15 Balance 183.15 / 183.15 Weight last 48 hrs Weight 204 lb Physical Exam Narrative: Resting comfortably on the bed in ER. Does not appear in any respiratory distress. Still look little bit anxious due to mild constant chest pain. Const: OTHER: Mildly anxious otherwise unremarkable. HENMT: OTHER: Normal. Eye: OTHER: Normal exam. Chest: OTHER: Normal chest exam. 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 No tenderness across chest wall. Resp: OTHER: Good air entry bilaterally. No added sounds. Cardio: OTHER: Normal first and second heart sounds. No murmur. There is no JVD. GI: OTHER: Abdomen soft nontender. Bowel sounds audible. Extremity: OTHER: No lower extremity edema. Distal pulses palpable bilaterally. Neuro: OTHER: Grossly intact. He moves all his 4 limbs. Skin: OTHER: Skin warm and dry. Data 01/15/24 09:13 01/15/24 09:13 A&P Assessment and plan (1) Non-ST elevation NJ (NSTEMI): 78-year-old male patient with a known coronary disease, previous PCI for NJ 5 years ago, presented with chest pain/NSTEMI. His blood pressure is on the lower side systolic 95-105. Heart rate in the 60s to 70s sinus rhythm. He still have ongoing mild chest discomfort. Clinically no pulmonary edema. Plan: With this presentation of NSTEMI and ongoing chest pain I recommend cardiac catheterization on urgent basis.. He is already loaded with loading dose of aspirin and 600 mg of Plavix as well as heparin. Discussed with with the patient about the need of urgent cardiac cath. Explained the procedure, risks benefits as well as alternatives. Patient understand the procedure well. He agrees for the procedure of cardiac cath and possible angioplasty. Coding Level of Care Code 64720 Diagnoses Non-ST elevation NJ (NSTEMI) I21.4 Time Spent (min) 30
--- NOTE | 2024-01-15 11:08 | ECG_ITS ---
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 Measurements Intervals [place] Rate: 66 P: 23 AR: 220 QRS: -35 QRSD: 106 T: -73 QT: 415 QTc: 437 Interpretive Statements SINUS RHYTHM WITH FIRST DEGREE AV BLOCK INFERIOR MYOCARDIAL INFARCTION , OF INDETERMINATE AGE [40+ ms Q WAVE AND/OR ST/T ABNORMALITY IN II/aVF] Compared to ECG 01/15/2024 09:49:29 Sinus bradycardia no longer present Sinus arrhythmia no longer present T-wave abnormality no longer present Possible ischemia no longer present Myocardial infarct finding still present Electronically Signed On 01-15-2024 12:14:10 CDT by Peter Mansfield M.D. [email or web address]
[2024-01-15 11:23] LABS: Magnesium 2.3 mg/dL (1.7-2.3); Thyroid Stimulating Hormone 1.93 uIU/mL (0.27-4.20)
--- NOTE | 2024-01-15 11:46 | W.PM.OPSUD ---
Surgery/Procedure H&P Update DATE OF PROCEDURE: January 15, 2024 DATE H&P PERFORMED: 01/15/24 H&P UPDATE INFORMATION: I have reviewed H&P completed within last 30 days, I have examined patient prior to procedure, No changes to prior documentation and Changes to prior documentation as noted here PREOP DIAGNOSIS: Non-ST elevation CT PATIENT REASSESSED PRIOR TO SEDATION, WITH NO CHANGE NOTED: Yes PHYSICAL EXAM: alert, oriented x 3 and clear to auscultation bilaterally AIRWAY EVAL/ANESTHESIA PLAN: ASA II, Risks, benefits & alternatives of sedation and/or procedure discussed and Patient agrees to continue as planned ADDITIONAL INFORMATION: Mallampati 2
--- NOTE | 2024-01-15 14:28 | ECG_ITS ---
[facility] [place] [facility] Date: 2024-01-15 Pat Name: Oskar Varner Department: Room: [facility] Gender: Male Mustanger: : 1945 Requested By: Artie Goldman Order Number: [id number] Farida MD: Peter Mansfield M.D. Measurements Intervals [place] Rate: 52 P: 24 [place]: 211 QRS: -33 QRSD: 104 T: -56 QT: 466 QTc: 434 Interpretive Statements Sinus bradycardia INFERIOR MYOCARDIAL INFARCTION , OF INDETERMINATE AGE Compared to ECG 01/15/2024 10:24:22 Sinus rhythm no longer present First degree AV block no longer present Myocardial infarct finding still present Electronically Signed On 01-15-2024 17:16:49 CDT by Peter Mansfield M.D. [id number]
[2024-01-15 16:11] LABS: Troponin 5 6HR 2666 ng/L (0-15); Troponin 5 6HR Delta 856 ng/L (0-12)
[2024-01-15] MEDS: losartan 50 mg Tablet PO (17:10)
[2024-01-15] MEDS: alum-mag-hydroxide-sime 30 mL UDC PO (17:58)
[2024-01-16] VITALS (22 sets, daily range): BP systolic 81–122; BP diastolic 54–79; PULSE 64–86; RESP 14–33; TEMP 36.7–37.3; O2SAT 91–94
[2024-01-16 05:15] LABS: Basophils % 0.2 %; Eosinophils % 0.2 %; Hematocrit 45.9 % (37-53); Lymphocytes # 0.9 10^3/uL (0.8-4.8); Lymphocytes % 7.2 %; Mean Corpuscular HGB Conc 32.7 g/dL (30-55); Mean Corpuscular Hemoglobin 30.9 pg (27-33); Mean Corpuscular Volume 94.6 fl (82-101); Mean Platelet Volume 9.3 fL (7.4-10.4); Monocytes # 1.3 10^3/uL (0.2-0.9); Monocytes % 10.9 %; Neutrophils # 9.94 10^3/uL (1.8-7.7); Neutrophils % 81.2 %; Nucleated Red Blood Cells % 0 %; Platelet Count 190 10^3/cmm (157-399); Red Blood Count 4.85 10^6/uL (3.85-5.65); Red Cell Distribution Width 14.3 % (12.1-15.1); White Blood Count 12.25 10^3/uL (3.29-11.43)
[2024-01-16 05:35] LABS: Alanine Aminotransferase 50 U/L (0-41); Albumin Level 3.9 g/dL (3.5-5.2); Alkaline Phosphatase 58 U/L (40-130); Anion Gap 13.9 (5-19); Aspartate Amino Transferase 291 U/L (0-40); Blood Urea Nitrogen 31 mg/dL (8-23); Calcium 8.3 mg/dL (8.5-10.5); Carbon Dioxide 26 mmol/L (22-29); Chloride 102 mmol/L (98-107); Creatinine Clr Calc Pharmacy 48.1154; Globulin 2.4 g/dL (1.3-4.6); Glucose 124 mg/dL (65-115); Osmolality Calculated 292 mOsm/kg (285-295); Potassium 4.9 mmol/L (3.5-5.1); Sodium 137 mmol/L (136-145); Total Bilirubin 0.5 mg/dL (0.15-1.2); Total Protein 6.3 g/dL (6.6-8.7)
[2024-01-16 05:38] LABS: Chol HDL Ratio 3.87 mg/dL (1.0-5.00); Cholesterol 205 mg/dL (0-200); HDL Cholesterol 53 mg/dL (60-100); LDL Cholesterol Calculated 139 mg/dL (50-129); LDL HDL Ratio 2.62 RATIO (0.00-3.22); Triglycerides 64 mg/dL (0-150)
--- NOTE | 2024-01-16 08:39 | P.PN_ITS ---
Subjective 2 Subjective: Oskar reports some mild residual chest discomfort. Overall he feels better. Nursing relates he was little confused yesterday after the procedure but now doing well. Medications: Reviewed: Yes Vitals/I&O/Wt Last Vital Signs Temp 98.3 F 01/16/24 04:46 Pulse 73 01/16/24 06:00 Resp 26 H 01/16/24 06:00 BP 92/61 01/16/24 06:00 Pulse Ox 93 01/16/24 06:00 O2 Del Method Nasal Cannula 01/15/24 22:00 O2 Flow Rate 3 01/15/24 22:00 01/15/24 01/16/24 01/16/24 22:59 06:59 14:59 Intake Total 816.85 / 1000.00 Balance 816.85 / 1000.00 Weight last 48 hrs Weight 96.57 kg Weight 93.894 kg Weight 92.533 kg Physical Exam 2 Narrative: General exam is a white male without distress currently Neck is supple no lymphadenopathy thyromegaly Cardiovascular regular rate and rhythm with a 2/6 systolic murmur Lungs clear Abdomen is soft nontender positive bowel sounds. No obvious organomegaly Extremities no cyanosis clubbing or edema, cap refill brisk Angiogram site right wrist without significant hematoma Data 01/16/24 04:46 01/16/24 04:46 A&P Assessment and plan (1) Non-ST elevation CT (NSTEMI): Patient presents with chest pain consistent with unstable angina Troponin elevation is consistent with non-ST elevation myocardial infarction Plavix, aspirin will continue Hypotensive after the procedure and required norepinephrine Lovenox 1 mg/kg for 24 hours secondary to non-ST elevation myocardial infarction Angiogram yesterday was not successful in opening up circumflex from what I understand. Full report is pending. Discussed briefly with cardiology this morning. Patient reports unable to tolerate statins. Lipid profile does show elevated LDL. Consider Repatha as an outpatient. Secondary to lower blood pressures ARB dose will be lowered Continue beta-sheron Try to add low-dose Imdur, if blood pressure tolerates carvedilol and losartan Discontinue the patient's Norvasc secondary to lower blood pressures Await echocardiogram report (2) Thoracic ascending aortic aneurysm: Stable as of last imaging test done earlier this year Chest x-ray with no change Continue to monitor (3) Hypertension: Continue current medications (4) Chronic kidney disease: Avoid anti-inflammatories Creatinine stable Avoid renal toxic medication Plan Multiple other medical problems as outlined in past medical history Full code SCDs, Lovenox for DVT prophylaxis Likely transfer to [facility] today. Attestations 2 Medical Necessity Statement*: Needs continued hospitalization for close monitoring following non-ST elevation myocardial infarction Diagnoses Non-ST elevation CT (NSTEMI) I21.4 Thoracic ascending aortic aneurysm I71.2 Hypertension I10 Chronic kidney disease N18.9 Time Spent (min) 23
[2024-01-16] MEDS: levothyroxine 150 mcg Tablet PO (08:40)
[2024-01-16] MEDS: clopidogrel 75 mg Tablet PO (08:40)
[2024-01-16] MEDS: carvedilol 3.125 mg Tablet PO (08:40)
[2024-01-16] MEDS: pantoprazole DR 40 mg Tablet PO (08:40)
[2024-01-16] MEDS: aspirin 81 mg EC Tablet PO (08:41)
[2024-01-16] MEDS: enoxaparin 100 mg/mL Syringe SUBCUT ×2 (09:19→21:39)
[2024-01-16] MEDS: losartan 50 mg Tablet 25 MG PO (09:20)
[2024-01-16] MEDS: isosorbide mononitrate ER 30 mg Tablet PO (10:18)
--- NOTE | 2024-01-16 12:21 | XRR_ITS ---
PROCEDURE INFORMATION: Exam: XR Chest Exam date and time: 01/16/2024 12:36 PM Age: 78 years old Clinical indication: Dyspnea; Additional info: Dyspnea, chest pain TECHNIQUE: Imaging protocol: Radiologic exam of the chest. Views: 1 view. COMPARISON: CR XR chest 1V portable [id number] 01/15/2024 10:45 AM FINDINGS: Lungs: No focal consolidation. Mild coarse reticular and ground-glass opacity in the mid to lower lungs bilaterally. Pleural spaces: There is no pleural effusion or pneumothorax. Heart/Mediastinum: There is moderate enlargement of the cardiac silhouette. Bones/joints: Bones are unremarkable. XR/XR chest 1V portable [id number] IMPRESSION: 1. Mild nonspecific reticular and ground-glass opacity in both lungs is new since the chest radiograph yesterday, and may be due in part to radiographic technique. Pulmonary interstitial edema is not excluded. 2. Cardiac enlargement.
--- NOTE | 2024-01-16 12:26 | ECG_ITS ---
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 Measurements Intervals [place] Rate: 73 P: 11 [place]: 220 QRS: -34 QRSD: 97 T: -42 QT: 368 QTc: 408 Interpretive Statements SINUS RHYTHM WITH FIRST DEGREE AV BLOCK WITH OCCASIONAL SUPRAVENTRICULAR PREMATURE COMPLEXES INFERIOR MYOCARDIAL INFARCTION , OF INDETERMINATE AGE Compared to ECG 01/15/2024 14:28:14 First degree AV block now present Myocardial infarct finding still present Electronically Signed On 01-17-2024 13:45:09 CDT by Peter Mansfield M.D. [id number]
[2024-01-16] MEDS: acetaminophen 325 mg Tablet 650 MG PO ×2 (12:36→18:42)
--- NOTE | 2024-01-16 12:43 | PC.CHAP ---
Pastoral Care Encounter/Spiritual Assessment Type of Contact [] Declined engraver pantograph visit [] Patient/Family/Request visit [] Outpatient visit [] Follow-up visit [] Physician referral [] Code/Alert [] Routine visit [] Staff referral [] Actively dying [x] Patient sleeping [] Family support [] [] Out of room [] Palliative care [] [] Receiving care in room [] Pre-surgical visit [] Trauma [] Long length of stay [] ICU visit [] Other: Relational/Emotional Strength [] Patient feels connected with others/family/visitors/staff [] Distress [] Loneliness/isolation [] Abandonment Spirituality of Patient [] Person of Ilene [] Attends Restorationist of their Ilene [] Believes in Prayer [] Reads Bible or Yarsanism materials [] There are Spiritual issues to be addressed Feather Cutting Machine Feeder Interventions [] Prayer [] Active listening [] Non-anxious presence [] Spiritual/emotional support [] Crisis/trauma care [] Spiritual counseling [] Bereavement support [] Provided bereavement packet [] Provided Bible/devotional materials [] Provided toy/stuffed animal, coloring book to patient or family member [] Provided Communion [] Anointing/[place] [] Salvation [] Completed spiritual assessment [] Other: Impact on Illness or Injury [] Angry [] Fearful [] Anxious [] Often cries [] Exhaustion [] Unable to work [] Unable to attend congregational [] Unable to walk/stand [] Unable to read [] Unable to drive [] Unable to eat/drink [] Unable to sleep [] Unable to be with family [] Patient intubated [] Other: Summary Time spent with patient
[2024-01-16] MEDS: FUROsemide 10 mg/mL SDV 4mL 40 MG IVP ×2 (13:00→16:56)
--- NOTE | 2024-01-16 14:41 | PC.NURSE ---
Received pt from ICU via w/c approximately 11 AM to [facility] 111-2 Pt looks pale,drowsy, short of breath,mildly restless, reports of chest pain when taking a deep breath that is worse than this morning,spo2 ranges from 86-90% on room air, bilateral lungs bases have coarse crackles upon auscultation. BP- 112/75,Hr-78. applied 2 L NC. Family at bedside. Updated Dr Junior on his condition in person. Updated network systems integrator Dr. Mansfield. Pt received orders of IVP 40mg Lasix once and given around 1, STAT EKG and chest xray taken. Tylenol 650 mg given for pain around 1pm. 1400pm- pt looked more comfortable and resting. Pt is sitting on side of bed, he stated, I can breathe easier now, still has chest soreness but my pain is much better. Spo2 on 2L NC is 93 to 94%. Urinated 380 cc in urinal. He refused Oliva cath insertion for now. VS monitored. will keep monitoring. current BP-96/63 map-74.
--- NOTE | 2024-01-16 15:22 | PC.NURSE ---
neighborhood conservation officer at bedside updated dr coto on pt's urine output after IVP 40 mg lasix and pt is more comfortable, pain tolerable and less short of breath. Pt does refused to try munoz cath insertion for accurate measure output. Dr Coto is okay with his refusal. received verbal orders read back to hold the coreg this regina, hold losartan tomorrow and give 40 mg IVP Lasix at 4 pm.
--- NOTE | 2024-01-16 16:53 | PC.NURSE ---
pt educated to urinate in the urinal after t went to bathroom on his own and notified nurse that he urinate in toilet. to monitor output closely during diurese treatment on lasix. pt verbalizes understanding. call light provided to pt.
--- NOTE | 2024-01-16 18:09 | PC.NURSE ---
trendelenburg position leg elevated. pt tolerated position well.
--- NOTE | 2024-01-16 18:19 | P.PN_ITS ---
Subjective 2 Subjective: I saw Mr. Lawler this morning and later during the day, reviewed his progress and lab data as well as the current medication. On this a 78-year-old male patient was admitted yesterday with acute HI and ongoing chest pain. This morning patient developed no further shortness of air, pain constant in the chest or worsening on the deep inspiration, likely secondary to recent HI. Patient complained of more shortness of air and constant constant discomfort in the chest. The chest pain is worse with a deep inspiration as well as on lying flat, relieved by sitting up. Also has some discomfort in the upper abdomen/epigastrium. Repeat echo revealed further deterioration of LVEF from 35% to 25%. Noted patient was given intravenous Lasix with partial relief of shortness of air. Medications: Medication Review Details: Patient's all current and home medication reviewed. Vitals/I&O/Wt Last Vital Signs Temp 98.0 F 01/16/24 16:00 Pulse 71 01/16/24 18:07 Resp 23 H 01/16/24 18:07 BP 101/54 01/16/24 18:07 Pulse Ox 93 01/16/24 18:07 O2 Del Method Nasal Cannula 01/16/24 18:07 O2 Flow Rate 2 01/16/24 18:07 01/16/24 01/16/24 01/16/24 06:59 14:59 22:59 Intake Total 250 / 250 236 / 486 Output Total 380 / 380 Balance -130 / -130 236 / 106 Weight last 48 hrs Weight 212 lb 14.4 oz Weight 207 lb Weight 204 lb Physical Exam 2 Narrative: Patient laying in the bed with 45 degree head up. He appears to be in some distress. Const: OTHER: Unremarkable. HENMT: OTHER: Unremarkable. Resp: OTHER: Lung auscultation revealed bilaterally crackles up to mid zones. Cardio: OTHER: First and second heart sounds. There is no murmur heard. GI: OTHER: Mildly obese, minimal tenderness in the epigastric area. Bowel sounds audible and normal. Extremity: OTHER: Both extremities are warm. There is minimal pedal edema bilaterally. Neuro: OTHER: Grossly intact and nonfocal. Skin: OTHER: I extremities are cold. Data 01/16/24 04:46 01/16/24 04:46 A&P Assessment and plan (1) Non-ST elevation HI (NSTEMI): 1. Chest pain is unlikely from angina. More so due to likely pericarditis in the setting of a significant HI recently. Other differential is pleurisy. 2. A congestive heart failure with worsening of LVEF and moderate pulmonary edema. So far some response to diuretics. 3. Blood pressure is on the lower side and likely due to a current ACS resulting in further low of LVEF. Additionally patient got losartan and carvedilol this morning. Plan: 1. Repeat a Lasix dose of 40 mg IV in the afternoon and close observation of urine output 2. Agree with therapeutic dose of enoxaparin 3. To hold losartan due to low blood pressure. Also will hold evening dose of carvedilol. Will continue to follow in the morning. Attestations 2 Medical Necessity Statement*: 1. Acute HI (NSTEMI) 2. Heart failure symptomatic secondary to markedly reduced low LVEF 25%. Coding Level of Care Code 45140 Diagnoses Non-ST elevation HI (NSTEMI) I21.4 Time Spent (min) 30
[2024-01-16] MEDS: ketorolac 30 mg/mL INJ 15 MG IVP (21:39)
[2024-01-17] VITALS (11 sets, daily range): BP systolic 85–109; BP diastolic 62–75; PULSE 66–96; RESP 15–31; TEMP 36.6–37.2; O2SAT 87–98
--- NOTE | 2024-01-17 03:59 | PC.NURSE ---
Patient stated chest pain at a 8 on 1-10 scale. BP is soft at 86/66. Dr Mansfield notified and order for 15mg toradol placed.
[2024-01-17 04:45] LABS: Basophils % 0.3 %; Eosinophils % 0.2 %; Hematocrit 42.3 % (37-53); Lymphocytes # 1.1 10^3/uL (0.8-4.8); Lymphocytes % 7.2 %; Mean Corpuscular HGB Conc 32.4 g/dL (30-55); Mean Corpuscular Hemoglobin 30.7 pg (27-33); Mean Corpuscular Volume 94.8 fl (82-101); Mean Platelet Volume 10.9 fL (7.4-10.4); Monocytes # 1.6 10^3/uL (0.2-0.9); Monocytes % 10.4 %; Neutrophils # 12.36 10^3/uL (1.8-7.7); Neutrophils % 81.6 %; Nucleated Red Blood Cells % 0 %; Platelet Count 180 10^3/cmm (157-399); Red Blood Count 4.46 10^6/uL (3.85-5.65); Red Cell Distribution Width 14.3 % (12.1-15.1); White Blood Count 15.14 10^3/uL (3.29-11.43)
[2024-01-17 05:18] LABS: Alanine Aminotransferase 46 U/L (0-41); Albumin Level 3.6 g/dL (3.5-5.2); Alkaline Phosphatase 44 U/L (40-130); Blood Urea Nitrogen 36 mg/dL (8-23); Calcium 8.6 mg/dL (8.5-10.5); Carbon Dioxide 27 mmol/L (22-29); Chloride 98 mmol/L (98-107); Creatinine Clr Calc Pharmacy 37.9859; Globulin 1.9 g/dL (1.3-4.6); Glucose 95 mg/dL (65-115); Magnesium 2.3 mg/dL (1.7-2.3); Osmolality Calculated 286 mOsm/kg (285-295); Sodium 134 mmol/L (136-145); Total Bilirubin 0.9 mg/dL (0.15-1.2); Total Protein 5.5 g/dL (6.6-8.7)
[2024-01-17 05:29] LABS: Anion Gap 13.6 (5-19); Aspartate Amino Transferase 175 U/L (0-40); Potassium 4.6 mmol/L (3.5-5.1)
[2024-01-17] MEDS: clopidogrel 75 mg Tablet PO (08:12)
[2024-01-17] MEDS: enoxaparin 100 mg/mL Syringe SUBCUT ×2 (08:12→20:27)
[2024-01-17] MEDS: levothyroxine 150 mcg Tablet PO (08:12)
[2024-01-17] MEDS: pantoprazole DR 40 mg Tablet PO (08:12)
[2024-01-17] MEDS: aspirin 81 mg EC Tablet PO (08:12)
[2024-01-17] MEDS: polyethylene glycol 3350 Pkt 17 gm PO (08:12)
[2024-01-17] MEDS: metoprolol tartrate 25 mg Tablet PO (10:10)
[2024-01-17] MEDS: FUROsemide 10 mg/mL SDV 4mL 40 MG IVP (10:10)
--- NOTE | 2024-01-17 10:50 | P.PN_ITS ---
Subjective 2 Subjective: I saw Mr. Lawler this morning. He feels somewhat better today. The chest pain intensity (pleuritic/post TX pericarditis related pain) is much less. His breathing is improved after diuresis. His blood pressure now running between 95-110 systolic. There is a change of his rhythm from regular sinus rhythm to atrial fibrillation overnight, however the rate of atrial fibrillation is controlled from 70 to 90s. Also noted creatinine has increased to 1.8 Medications: Medication Review Details: Reviewed all current medication. Vitals/I&O/Wt Last Vital Signs Temp 98.3 F 01/17/24 07:47 Pulse 84 01/17/24 07:47 Resp 16 01/17/24 07:47 BP 109/70 01/17/24 07:47 Pulse Ox 94 01/17/24 07:47 O2 Del Method Nasal Cannula 01/17/24 07:47 O2 Flow Rate 2 01/17/24 07:47 01/16/24 01/17/24 01/17/24 22:59 06:59 14:59 Intake Total 458 / 708 236 / 236 Output Total 300 / 680 300 / 980 Balance 158 / 28 -300 / -272 236 / 236 Weight last 48 hrs Weight 212 lb 14.4 oz Weight 212 lb 14.4 oz Weight 207 lb Physical Exam 2 Narrative: Laying comfortably on the bed he is in minimal respiratory distress Const: COMMON NORMALS: patient oriented x3 and alert OTHER: Still in mild distress due to pain and short of air. HENMT: OTHER: Unremarkable, normal Eye: OTHER: Normal Resp: OTHER: Bibasilar Rales which are improved compared to yesterday. Cardio: OTHER: Irregularly irregular rhythm, atrial fibrillation. Normal first and second heart sounds. GI: OTHER: Abdomen is mildly tense. Bowel sounds audible normal Extremity: NARRATIVE EXTREMITY EXAM: No lower extremity edema. Neuro: COMMON NORMALS: patient oriented x3 SENSORIUM/ORIENTATION: Yes alert Skin: OTHER: Skin is warm over peripheries. Data 01/17/24 03:00 01/17/24 03:00 A&P Assessment and plan (1) Non-ST elevation [place] (NSTEMI): 78-year-old male patient with 1. NSTEMI. Currently being managed medically. The chest pain is not angina, more likely pericarditis/pleuritic pain 2. Congestive heart failure with LVEF of 25%. Improved volume status with less pulmonary edema clinically. 3. New onset of atrial fibrillation, rate controlled. Plan: 1. Because the low blood pressure we discontinued lisinopril as well as carvedilol. 2. Given him a stat dose of Lasix 40 mg 3. Metoprolol 25 mg stat He is already on enoxaparin for medical management of NSTEMI which will cover for anticoagulation need of atrial fibrillation. Will observe closely today for urine output, atrial fibrillation heart rate and he is respiratory status. Noted his white cell count is up, will discuss with the hospitalist team for their opinion. (2) Systolic heart failure: Attestations 2 Medical Necessity Statement*: NSTEMI and significant pulmonary edema/respiratory distress/markedly low LVEF requiring ongoing treatment Coding Level of Care Code 03313 Diagnoses Non-ST elevation TX (NSTEMI) I21.4 Systolic heart failure I50.20 Time Spent (min) 30
--- NOTE | 2024-01-17 16:52 | P.DS_ITS ---
Discharge Providers Date of Admission: 01/15/24 10:54 Date of Discharge: January 17, 2024 Attending Provider at Admission: Collin Junior MD Attending Provider at Discharge: Dulce Blancas MD Primary Care Provider: Darryl Victor Diagnoses at Discharge Discharge Diagnosis (1) Non-ST elevation PA (NSTEMI): Status: Acute (2) Systolic heart failure: Status: Acute Reason for Visit Reason for Visit: CP, SOB Hospital Course Hospital Course Oskar Varner is a 78 year old male with known history of coronary disease, thoracic aortic aneurysm, other medical problems who presents with chest discomfort substernal pressure. He was diagnosed with an NSTEMI and taken to the Associate Professor Physician on January 15, 2024. Angiogram was attempted, however it was not successful in opening up the LCx lesion. Please see detailed Associate Professor Physician report for details. Patient was started on treatment with full dose anticoagulation with Lovenox, aspirin and Plavix. He is intolerant of statins and there is consideration for Repatha as outpatient. He continued to complain of chest discomfort post procedure which was thought to be related to pericarditis. His echocardiogram revealed a severely low systolic function of 25%. There was hypokinesia of the inferior inferoseptal and anteroapical wall segments. With elevated pulmonary artery systolic pressure. Patient received careful IV diuresis while being monitored for his blood pressure and kidney parameters. HARMONY inhibitor's were discontinued due to relative hypotension. Carvedilol was changed to metoprolol. Patient had questions with regards to his discharge, it was discussed extensively with him that we are still trying to optimize his fluid status and would aim to convert his medications to oral as soon as feasible. Discussed with him that anticipate discharge over the next 24 to 48 hours. Patient agreed with the plan in the morning. However by the afternoon and then evening hours stated that he no longer wanted to be in the hospital. He stated that he has had enough and would just like to go home. He decided to leave AMA. Physical Exam Narrative: Physical exam from 11 AM when patient was seen and examined. General: No acute distress, AO x3, on room air currently. HEENT: PERRLA, pupils bilaterally equal and reactive, pallors not present Chest: Rales to auscultation left infra axillary area CVS: S1-S2 regular, no murmurs, no tachycardia, no gallops, no rubs Abdomen: Soft, nontender, no organomegaly, bowel sounds present Neuro: No focal deficits, no facial deformity, AO x3, power 5/5 in all limbs Extremities: No gross pitting edema Discharge Data Studies Completed and Pending Completed Studies During Hospitalization Category Date Time Status XR chest 1V portable [id number] Stat Exams 01/15/24 10:40 Completed XR chest 1V portable [id number] Stat Exams 01/16/24 12:21 Completed CV. 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 Mild nonspecific reticular and ground-glass opacity in both lungs is new since the chest radiograph yesterday, and may be due in part to radiographic technique. Pulmonary interstitial edema is not excluded. 2. Cardiac enlargement. Laboratory Results WBC 15.14 10^3/uL (3.29-11.43) H 01/17/24 03:00 RBC 4.46 10^6/uL (3.85-5.65) 01/17/24 03:00 Hgb 13.70 g/dL (11.27-16.99) 01/17/24 03:00 Hct 42.3 % (37-53) 01/17/24 03:00 MCV 94.8 fl (82-101) 01/17/24 03:00 MCH 30.7 pg (27-33) 01/17/24 03:00 MCHC 32.4 g/dL (30-55) 01/17/24 03:00 RDW 14.3 % (12.1-15.1) 01/17/24 03:00 Plt Count 180 10^3/cmm (157-399) 01/17/24 03:00 MPV 10.9 fL (7.4-10.4) H 01/17/24 03:00 Neut % (Auto) 81.6 % 01/17/24 03:00 Lymph % (Auto) 7.2 % 01/17/24 03:00 [place] % (Auto) 10.4 % 01/17/24 03:00 Eos % (Auto) 0.2 % 01/17/24 03:00 Baso % (Auto) 0.3 % 01/17/24 03:00 Neut # (Auto) 12.36 10^3/uL (1.8-7.7) H 01/17/24 03:00 Lymph # (Auto) 1.1 10^3/uL (0.8-4.8) 01/17/24 03:00 [place] # (Auto) 1.6 10^3/uL (0.2-0.9) H 01/17/24 03:00 Eos # (Auto) 0.0 10^3/uL (0.0-0.8) 01/17/24 03:00 Baso # (Auto) 0.0 10^3/uL (0.0-0.1) 01/17/24 03:00 Nucleated RBC % (auto) 0 % 01/17/24 03:00 Nucleated RBCs # 0.0 /100WBC 01/17/24 03:00 Sodium 134 mmol/L (136-145) L 01/17/24 03:00 Potassium 4.6 mmol/L (3.5-5.1) 01/17/24 03:00 Chloride 98 mmol/L (98-107) 01/17/24 03:00 Carbon Dioxide 27 mmol/L (22-29) 01/17/24 03:00 Anion Gap 13.6 (5-19) 01/17/24 03:00 BUN 36 mg/dL (8-23) H 01/17/24 03:00 Creatinine 1.9 mg/dL (0.7-1.2) H 01/17/24 03:00 GFR Calculation Not Reportable 01/17/24 03:00 Glucose 95 mg/dL (65-115) 01/17/24 03:00 Calculated Osmolality 286 mOsm/kg (285-295) 01/17/24 03:00 Calcium 8.6 mg/dL (8.5-10.5) 01/17/24 03:00 Magnesium 2.3 mg/dL (1.7-2.3) 01/17/24 03:00 Total Bilirubin 0.9 mg/dL (0.15-1.2) 01/17/24 03:00 AST 175 U/L (0-40) H 01/17/24 03:00 ALT 46 U/L (0-41) H 01/17/24 03:00 Alkaline Phosphatase 44 U/L (40-130) 01/17/24 03:00 Troponin T Baseline 1810 ng/L (0-15) H* 01/15/24 09:13 Troponin T Hi Sens 6Hr 2666 ng/L (0-15) H 01/15/24 15:33 Troponin T Hi Sens 6Hr Delta 856 ng/L (0-12) H* 01/15/24 15:33 Total Protein 5.5 g/dL (6.6-8.7) L 01/17/24 03:00 Albumin 3.6 g/dL (3.5-5.2) 01/17/24 03:00 Globulin 1.9 g/dL (1.3-4.6) 01/17/24 03:00 Triglycerides 64 mg/dL (0-150) 01/16/24 04:46 Cholesterol 205 mg/dL (0-200) H 01/16/24 04:46 LDL Cholesterol, Calc 139 mg/dL (50-129) H 01/16/24 04:46 HDL Cholesterol 53 mg/dL (60-100) L 01/16/24 04:46 LDL/HDL Ratio 2.62 RATIO (0.00-3.22) 01/16/24 04:46 Cholesterol/HDL Ratio 3.87 mg/dL (1.0-5.00) 01/16/24 04:46 Lipase 24 U/L (13-60) 01/15/24 09:13 TSH 1.93 uIU/mL (0.27-4.20) 01/15/24 09:13 Vitals Last Vital Signs Temp 99.0 F 01/17/24 15:47 Pulse 92 01/17/24 15:47 Resp 16 01/17/24 15:47 BP 101/75 01/17/24 15:47 Pulse Ox 87 L 01/17/24 15:47 O2 Del Method Room Air 01/17/24 15:47 O2 Flow Rate 2 01/17/24 07:47 Discharge Plan Discharge Patient Disposition: Left Against Medical Advice Condition: Stable Prescriptions: New clopidogrel 75 mg Tablet 75 mg PO DAILY 30 Days Qty: 30 0RF isosorbide mononitrate 30 mg Tablet Extended Release 24 Hr 30 mg PO DAILY 30 Days Qty: 30 0RF metoprolol tartrate 25 mg tablet 12.5 mg PO BID Qty: 30 0RF Continued levothyroxine 150 mcg capsule 150 mcg PO DAILY beetroot 4,000 mg PO BID testosterone cypionate 200 mg/mL oil 200 mg SUBCUT Q21D green lipped mussel 500 mg PO BID Rx Instructions: [id number] tablet potassium citrate 99 mg capsule 99 mg PO BID omeprazole 20 mg capsule,delayed release(DR/EC) 20 mg PO DAILY Qty: 90 3RF nitroglycerin [Nitrostat] 0.4 mg tablet, sublingual 0.4 mg sublingual Q5M PRN (Reason: chest pain) Qty: 25 1RF Rx Instructions: do not exceed 3 doses per episode Co Q-10 100 mg tablet 100 mg PO DAILY Triple Magnesium Complex 400 mg tablet 400 mg PO DAILY acetylcarnitine 500 mg Capsule 500 mg PO DAILY Amino Acid Capsule 1 cap PO BID aspirin [Aspir-81] 81 mg Tablet,Delayed Release (Dr/Ec) 81 mg PO DAILY zinc sulfate 50 mg zinc (220 mg) Tablet 50 mg PO DAILY vitamin B complex Tablet 1 tab PO DAILY Align 4 mg Capsule 1,500 mmu cells PO DAILY Rx Instructions: administer with a meal lubiprostone 8 mcg capsule 8 mcg PO BID cholecalciferol (vitamin D3) [Vitamin D3] 50 mcg (2,000 unit) Tablet 50 mcg PO DAILY Discontinued carvedilol [Coreg] 3.125 mg tablet 3.125 mg PO BID Qty: 180 3RF Rx Instructions: must administer with a meal/food valsartan 40 mg tablet 40 mg PO BID Qty: 180 3RF amlodipine 2.5 mg tablet 2.5 mg PO DAILY Qty: 30 2RF Referrals: Darryl Victor [Primary Care Provider] - Discharge Attestations Time Spent in Discharge Care*: greater than 30 min Quality Metrics Clinical Quality Measures [ Acute Myocardial Infaction { Clinical Trial Participant: No; Contraindication to aspirin: None; Aspirin prescribed; Contraindication to statin: Drug allergy and Adverse reaction to drug; Contraindication to PCI: None; PCI performed;}] Coding Level of Care Code Acute Code for [facility] Diagnoses Non-ST elevation PA (NSTEMI) I21.4 Systolic heart failure I50.20
[2024-01-17] MEDS: digoxin 250 mcg Tablet PO (20:21)
[2024-01-17] MEDS: temazepam 15 mg Capsule PO (20:27)
[2024-01-18] VITALS (7 sets, daily range): BP systolic 90–101; BP diastolic 65–76; PULSE 67–91; RESP 19–30; TEMP 36.9–37.6; O2SAT 92–95
[2024-01-18] MEDS: metoprolol tartrate 25 mg Tablet PO (00:12)
--- NOTE | 2024-01-18 00:16 | PC.NURSE ---
Patient heart rate jumped into the 130-140. Patient became symptomatic, sob, diaphoretic, and dizzy. Vitals were obtained: HR 123 BP 118/[address] Mansfield notified and new orders were given for 25mg metoprolol one time dose.
[2024-01-18] MEDS: acetaminophen 325 mg Tablet 650 MG PO (01:13)
--- NOTE | 2024-01-18 06:09 | PC.NURSE ---
Patient had a 3 second cardiac pause. Strip was printed and posted in chart. Dr Zaragoza notified. No new orders
[2024-01-18] MEDS: digoxin 250 mcg Tablet PO (08:30)
[2024-01-18] MEDS: enoxaparin 100 mg/mL Syringe SUBCUT (08:30)
[2024-01-18] MEDS: isosorbide mononitrate ER 30 mg Tablet PO (08:30)
[2024-01-18] MEDS: levothyroxine 150 mcg Tablet PO (08:31)
[2024-01-18] MEDS: aspirin 81 mg EC Tablet PO (08:31)
[2024-01-18] MEDS: clopidogrel 75 mg Tablet PO (08:31)
[2024-01-18] MEDS: metoprolol succinate ER (24 HR) 25 mg Tablet PO (08:31)
[2024-01-18] MEDS: pantoprazole DR 40 mg Tablet PO (08:31)
[2024-01-18] MEDS: polyethylene glycol 3350 Pkt 17 gm PO (08:31)
--- NOTE | 2024-01-18 11:05 | P.PN_ITS ---
Subjective 2 Subjective: Summarization for this morning. Clinically he improved significantly. He is off oxygen and maintaining oxygen over 94% on room air. Denies any chest pain currently. Minimal short of air on walking to the bathroom. He remains in atrial fibrillation with reasonable rate controlled. Last night he had 1 recording of a pause of 3-second during sleep. The pause was in the setting of atrial fibrillation and during sleep. Therefore it is not of any major clinical significance. Patient does require low-dose of beta-sheron because of coronary disease as well as further rate control of A-fib. Pulm edema symptoms much improved. I reviewed his labs with a creatinine is stable 1.9 today from 1.8 yesterday. Vitals/I&O/Wt Last Vital Signs Temp 98.5 F 01/18/24 07:54 Pulse 80 01/18/24 08:30 Resp 19 H 01/18/24 07:54 BP 90/73 01/18/24 07:54 Pulse Ox 95 01/18/24 07:54 O2 Del Method Nasal Cannula 01/18/24 07:54 O2 Flow Rate 2 01/17/24 07:47 01/17/24 01/18/24 01/18/24 23:59 06:59 14:59 Intake Total 360 / 360 Output Total Balance 360 / 360 Weight last 48 hrs Weight 212 lb 14.4 oz Weight 212 lb 14.4 oz Physical Exam 2 Narrative: Sitting on the bed comfortably. No respiratory distress. Const: COMMON NORMALS: no acute distress, patient oriented x3 and alert HENMT: OTHER: Normal Chest: OTHER: Normal respiratory movement. No tenderness over the chest. Resp: OTHER: Good air entry bilaterally. Minimal rales at the bases bilaterally. Cardio: OTHER: No jugular venous distention Irregularly irregular heart rate atrial fibrillation rate controlled. Normal first and second heart sounds. GI: OTHER: Abdomen soft nontender bowel sounds audible. Extremity: NARRATIVE EXTREMITY EXAM: Trace lower extremity edema bilaterally. Neuro: COMMON NORMALS: patient oriented x3 SENSORIUM/ORIENTATION: Yes alert Data 01/17/24 03:00 01/17/24 03:00 A&P Assessment and plan (1) Non-ST elevation [place] (NSTEMI): 78-year-old male with recent NSTEMI and significantly reduced LVEF at 25%. 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 The acute occlusion was in a smaller branch which was plan to manage medically. During the course of the hospital patient developed pulmonary edema which managed successfully with the diuretics. With the diuresis his creatinine jumped from 1.6 to 1.9 and appears to be stabilized now He is off oxygen. And maintaining saturation over 94% on room air. No anginal symptoms. He developed a new onset of atrial fibrillation on second day of admission he remains in atrial fibrillation with rate control. Plan to discharge him home on 1. Plavix 75 mg once a day 2. Eliquis 5 mg twice a day 3. Metoprolol ER 25 mg once a day 4. Digoxin 0.125 once a day 5. Lasix 40 mg once a day 6. Atorvastatin 40 mg once a day Regular pain medication for chest pain related to likely pleurisy/pericarditis. He could not tolerate low-dose of HARMONY/ARB due to low blood pressure. He will be followed up in the cardiology clinic in 1 to 2 weeks. (2) Systolic heart failure: (3) Chronic kidney disease: Attestations 2 Medical Necessity Statement*: NSTEMI, pulmonary edema, atrial fibrillation requiring intravenous medication as well as cardiac monitoring Coding Level of Care Code 00288 Diagnoses Non-ST elevation [place] (NSTEMI) I21.4 Systolic heart failure I50.20 Chronic kidney disease N18.9 Time Spent (min) 20
--- NOTE | 2024-01-18 13:35 | PC.NURSE ---
Discharge Note Patient discharged to home via POV accompanied by spouse and daughter. 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 Mobile pharmacy medications and/or prescriptions provided. Belongings/home medications returned.
--- NOTE | 2024-01-18 16:27 | PM.DCS ---
Discharge Providers Date of Admission: 01/15/24 10:54 Date of Discharge: January 18, 2024 Attending Provider at Admission: Collin Junior MD Attending Provider at Discharge: Dulce lBancas MD Primary Care Provider: Darryl Victor Diagnoses at Discharge Discharge Diagnosis (1) Non-ST elevation [place] (NSTEMI): Status: Acute (2) Systolic heart failure: Status: Acute (3) Chronic kidney disease: Status: Chronic Reason for Visit Reason for Visit: CP, SOB Hospital Course Hospital Course Oskar Varner is a 78 year old male with known history of coronary disease, thoracic aortic aneurysm, other medical problems who presents with chest discomfort substernal pressure. He was diagnosed with an NSTEMI and taken to the [facility] on January 15, 2024. Angiogram was attempted, however it was not successful in opening up the LCx lesion. Please see detailed [facility] report for details. Patient was started on treatment with full dose anticoagulation with Lovenox, aspirin and Plavix. He is intolerant of statins and there is consideration for Repatha as outpatient. He continued to complain of chest discomfort post procedure which was thought to be related to pericarditis. His echocardiogram revealed a severely low systolic function of 25%. There was hypokinesia of the inferior inferoseptal and anteroapical wall segments. With elevated pulmonary artery systolic pressure. Patient received careful IV diuresis while being monitored for his blood pressure and kidney parameters. HARMONY inhibitor's were discontinued due to relative hypotension. Carvedilol was changed to metoprolol. He was diagnosed with new onset A-fib on this admission for which she has been started on anticoagulation with Eliquis. She is being discharged with the following discharge recommendations per cardiology. Eliquis 5 mg p.o. twice daily, Plavix 75 mg p.o. daily, digoxin 125 mics p.o. daily, Lasix 40 mg p.o. daily, metoprolol 25 mg p.o. daily. Patient is recommended to follow-up in the cardiology office within 1 week of discharge. He is feeling much better today. He is breathing better. Saturating 92% on room air. No current chest pain. Physical Exam Narrative: General: No acute distress, AO x3 HEENT: PERRLA, pupils bilaterally equal and reactive, pallors not present Chest: Normal vesicular breath sounds, no added sounds, equal good air entry bilaterally CVS: S1-S2 regular, no murmurs, no tachycardia, no gallops, no rubs Abdomen: Soft, nontender, no organomegaly, bowel sounds present Neuro: No focal deficits, no facial deformity, AO x3, power 5/5 in all limbs Discharge Data Studies Completed and Pending Completed Studies During Hospitalization Category Date Time Status XR chest 1V portable [id number] Stat Exams 01/15/24 10:40 Completed XR chest 1V portable [id number] Stat Exams 01/16/24 12:21 Completed CV. echo complete* [id number] Routine Ultrasound 01/15/24 00:00 Completed Pending at discharge Category Date Time Status IMAGING MANAGER request for service Routine Exams 01/15/24 10:58 Taken Radiology Impressions Chest X-Ray 01/16/24 12:21 IMPRESSION: 1. Mild nonspecific reticular and ground-glass opacity in both lungs is new since the chest radiograph yesterday, and may be due in part to radiographic technique. Pulmonary interstitial edema is not excluded. 2. Cardiac enlargement. Laboratory Results WBC 15.14 10^3/uL (3.29-11.43) H 01/17/24 03:00 RBC 4.46 10^6/uL (3.85-5.65) 01/17/24 03:00 Hgb 13.70 g/dL (11.27-16.99) 01/17/24 03:00 Hct 42.3 % (37-53) 01/17/24 03:00 MCV 94.8 fl (82-101) 01/17/24 03:00 MCH 30.7 pg (27-33) 01/17/24 03:00 MCHC 32.4 g/dL (30-55) 01/17/24 03:00 RDW 14.3 % (12.1-15.1) 01/17/24 03:00 Plt Count 180 10^3/cmm (157-399) 01/17/24 03:00 MPV 10.9 fL (7.4-10.4) H 01/17/24 03:00 Neut % (Auto) 81.6 % 01/17/24 03:00 Lymph % (Auto) 7.2 % 01/17/24 03:00 Jack % (Auto) 10.4 % 01/17/24 03:00 Eos % (Auto) 0.2 % 01/17/24 03:00 Baso % (Auto) 0.3 % 01/17/24 03:00 Neut # (Auto) 12.36 10^3/uL (1.8-7.7) H 01/17/24 03:00 Lymph # (Auto) 1.1 10^3/uL (0.8-4.8) 01/17/24 03:00 Jack # (Auto) 1.6 10^3/uL (0.2-0.9) H 01/17/24 03:00 Eos # (Auto) 0.0 10^3/uL (0.0-0.8) 01/17/24 03:00 Baso # (Auto) 0.0 10^3/uL (0.0-0.1) 01/17/24 03:00 Nucleated RBC % (auto) 0 % 01/17/24 03:00 Nucleated RBCs # 0.0 /100WBC 01/17/24 03:00 Sodium 134 mmol/L (136-145) L 01/17/24 03:00 Potassium 4.6 mmol/L (3.5-5.1) 01/17/24 03:00 Chloride 98 mmol/L (98-107) 01/17/24 03:00 Carbon Dioxide 27 mmol/L (22-29) 01/17/24 03:00 Anion Gap 13.6 (5-19) 01/17/24 03:00 BUN 36 mg/dL (8-23) H 01/17/24 03:00 Creatinine 1.9 mg/dL (0.7-1.2) H 01/17/24 03:00 GFR Calculation Not Reportable 01/17/24 03:00 Glucose 95 mg/dL (65-115) 01/17/24 03:00 Calculated Osmolality 286 mOsm/kg (285-295) 01/17/24 03:00 Calcium 8.6 mg/dL (8.5-10.5) 01/17/24 03:00 Magnesium 2.3 mg/dL (1.7-2.3) 01/17/24 03:00 Total Bilirubin 0.9 mg/dL (0.15-1.2) 01/17/24 03:00 AST 175 U/L (0-40) H 01/17/24 03:00 ALT 46 U/L (0-41) H 01/17/24 03:00 Alkaline Phosphatase 44 U/L (40-130) 01/17/24 03:00 Troponin T Baseline 1810 ng/L (0-15) H* 01/15/24 09:13 Troponin T Hi Sens 6Hr 2666 ng/L (0-15) H 01/15/24 15:33 Troponin T Hi Sens 6Hr Delta 856 ng/L (0-12) H* 01/15/24 15:33 Total Protein 5.5 g/dL (6.6-8.7) L 01/17/24 03:00 Albumin 3.6 g/dL (3.5-5.2) 01/17/24 03:00 Globulin 1.9 g/dL (1.3-4.6) 01/17/24 03:00 Triglycerides 64 mg/dL (0-150) 01/16/24 04:46 Cholesterol 205 mg/dL (0-200) H 01/16/24 04:46 LDL Cholesterol, Calc 139 mg/dL (50-129) H 01/16/24 04:46 HDL Cholesterol 53 mg/dL (60-100) L 01/16/24 04:46 LDL/HDL Ratio 2.62 RATIO (0.00-3.22) 01/16/24 04:46 Cholesterol/HDL Ratio 3.87 mg/dL (1.0-5.00) 01/16/24 04:46 Lipase 24 U/L (13-60) 01/15/24 09:13 TSH 1.93 uIU/mL (0.27-4.20) 01/15/24 09:13 Vitals Last Vital Signs Temp 98.6 F 01/18/24 13:33 Pulse 81 01/18/24 13:33 Resp 20 H 01/18/24 13:33 BP 90/65 01/18/24 13:33 Pulse Ox 94 01/18/24 13:33 O2 Del Method Room Air 01/18/24 11:53 O2 Flow Rate 2 01/17/24 07:47 Discharge Plan Discharge Patient Disposition: Home Condition: Stable Prescriptions: New clopidogrel 75 mg Tablet 75 mg PO DAILY 30 Days Qty: 30 0RF nitroglycerin 0.4 mg Tablet, Sublingual 0.4 mg sublingual Q5M PRN (Reason: Chest Pain) 10 Days Qty: 10 0RF furosemide [Lasix] 20 mg tablet 40 mg PO DAILY 10 Days Qty: 10 0RF Eliquis 5 mg Tablet 5 mg PO BID@0900,2100 30 Days Qty: 60 0RF digoxin 125 mcg (0.125 mg) Tablet 125 mcg PO DAILY 30 Days Qty: 30 0RF metoprolol succinate 25 mg Tablet Extended Release 24 Hr 25 mg PO DAILY 30 Days Qty: 30 0RF Continued levothyroxine 150 mcg capsule 150 mcg PO DAILY beetroot 4,000 mg PO BID testosterone cypionate 200 mg/mL oil 200 mg SUBCUT Q21D green lipped mussel 500 mg PO BID Rx Instructions: [id number] tablet potassium citrate 99 mg capsule 99 mg PO BID omeprazole 20 mg capsule,delayed release(DR/EC) 20 mg PO DAILY Qty: 90 3RF nitroglycerin [Nitrostat] 0.4 mg tablet, sublingual 0.4 mg sublingual Q5M PRN (Reason: chest pain) Qty: 25 1RF Rx Instructions: do not exceed 3 doses per episode Co Q-10 100 mg tablet 100 mg PO DAILY Triple Magnesium Complex 400 mg tablet 400 mg PO DAILY acetylcarnitine 500 mg Capsule 500 mg PO DAILY Amino Acid Capsule 1 cap PO BID zinc sulfate 50 mg zinc (220 mg) Tablet 50 mg PO DAILY vitamin B complex Tablet 1 tab PO DAILY Align 4 mg Capsule 1,500 mmu cells PO DAILY Rx Instructions: administer with a meal lubiprostone 8 mcg capsule 8 mcg PO BID cholecalciferol (vitamin D3) [Vitamin D3] 50 mcg (2,000 unit) Tablet 50 mcg PO DAILY Discontinued carvedilol [Coreg] 3.125 mg tablet 3.125 mg PO BID Qty: 180 3RF Rx Instructions: must administer with a meal/food valsartan 40 mg tablet 40 mg PO BID Qty: 180 3RF amlodipine 2.5 mg tablet 2.5 mg PO DAILY Qty: 30 2RF aspirin [Aspir-81] 81 mg Tablet,Delayed Release (Dr/Ec) 81 mg PO DAILY Discharge Orders: Discharge Order (Routine); Ordered 01/18/24 Ordered By: Dulce Blancas Referrals: Matt Juares M.D [Physician] - 1 month (We have notified your physician's clinic of the need for a follow-up appointment to be scheduled. If you have not heard from them within the next 2 business days, please call them directly. ) Darryl Victor [Primary Care Provider] - 4-7 days (Please call for an follow-up appointment within 4 to 7 days. Thank you! ) Laura Kerr FNP [Nurse Practitioner] - 1 week (We have notified your physician's clinic of the need for a follow-up appointment to be scheduled. If you have not heard from them within the next 2 business days, please call them directly. ) Discharge Diet: Usual diet Discharge Activity: Resume usual activity Patient Instructions: Metoprolol (By mouth) (Lopressor, Toprol XL), Digoxin (By mouth), Clopidogrel (By mouth) (Plavix), Apixaban (By mouth) (Eliquis), Coronary Angioplasty (DC), Opioid Safety, Post Angiogram Home Care Instructions Discharge Attestations Time Spent in Discharge Care*: greater than 30 min Quality Metrics Clinical Quality Measures [ Acute Myocardial Infaction { Clinical Trial Participant: No; Contraindication to aspirin: None; Aspirin prescribed; Contraindication to statin: Drug allergy; Contraindication to PCI: None; PCI performed;}] Coding Level of Care Code Acute Code for [facility] Diagnoses Non-ST elevation [place] (NSTEMI) I21.4 Systolic heart failure I50.20 Chronic kidney disease N18.9
== END 2024-01-18 13:36 | disposition home or self-care (01) | DRG 251 ==
LOC: ER 10:24 → ICU 10:55 → CSU 01-16 11:24
PROVIDERS: Internal Medicine Cardiovascular Disease; Admitting Provider Internal Medicine; Emergency Provider Emergency Medicine; PCP Family Medicine; Visit Provider Student in an Organized Health Care Education/Training Program
PROC: 02703ZZ Dilation of Coronary Artery, One Artery, Percutaneous Approach (ICD-10-PCS; principal; 2024-01-15 11:05)
PROC: 02703ZZ Dilation of Coronary Artery, One Artery, Percutaneous Approach (ICD-10-PCS; 2024-01-15 11:05)
DX: I21.4 Non-ST elevation (NSTEMI) myocardial infarction (principal); I13.0 Hypertensive heart and chronic kidney disease with heart failure and stage 1 through stage 4 chronic kidney disease, or unspecified chronic kidney disease; I50.22 Chronic systolic (congestive) heart failure; I31.9 Disease of pericardium, unspecified; I25.10 Atherosclerotic heart disease of native coronary artery without angina pectoris; I71.60 Thoracoabdominal aortic aneurysm, without rupture, unspecified; K44.9 Diaphragmatic hernia without obstruction or gangrene; I73.9 Peripheral vascular disease, unspecified; I25.5 Ischemic cardiomyopathy; N52.9 Male erectile dysfunction, unspecified; K21.9 Gastro-esophageal reflux disease without esophagitis; E78.5 Hyperlipidemia, unspecified; N18.9 Chronic kidney disease, unspecified; I95.81 Postprocedural hypotension; I48.91 Unspecified atrial fibrillation; I25.2 Old myocardial infarction; Z95.5 Presence of coronary angioplasty implant and graft; Z79.899 Other long term (current) drug therapy
CPT/HCPCS: 36415; 71045; 80053; 80061; 83690; 83735; 84443; 84484; 85025; 85347; 92920; 93005; 93306; 93458; 96372; 96374; 96375; 96376; 99152; 99153; 99285; C1725; C1769; C1887; C1894; J1200; J1644; J1650; J1885; J1940; J2250; J2270; J2371; J2405; J3010; J3490; J7030; Q9967

== ENCOUNTER 2024-01-28 14:06 | Inpatient (IN) | payer MEDICARE, MEDICAID, SELFPAY ==
[2024-01-28] VITALS (64 sets, daily range): BP systolic 91–154; BP diastolic 51–106; PULSE 68–117; RESP 7–39; TEMP 36.1–36.4; O2SAT 86–98; BMI 28.7; BMI 29.2
--- NOTE | 2024-01-28 14:09 | XR_ITS ---
WS: [id number] Portable AP upright chest, 01/28/2024 Clinical Data: cp Comparison: Portable chest, 01/16/2024 Findings: Heart is enlarged. No nodules or masses are seen. There are small bilateral effusions. No p neumonia or pneumothorax is seen. The aortic arch shows tortuosity. Monitor leads are on the chest wa ll. 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 XR/XR chest 1V portable [id number] Impression: 1. Cardiomegaly and small bilateral pleural effusions. 2. Atherosclerosis.
--- NOTE | 2024-01-28 14:23 | ECG_ITS ---
[facility]24[facility]28 Pat Name: Oskar Varner Department: Room: Gender: Male Director Industrial Relations: : 1945 Requested By: Artie Goldman Order Number: [id number] Farida MD: Galindo Manuel M.D. Measurements Intervals [place] Rate: 112 P: 0 SD: 0 QRS: -46 QRSD: 88 T: 96 QT: 298 QTc: 408 Interpretive Statements ATRIAL FIBRILLATION WITH RAPID VENTRICULAR RESPONSE LEFT ANTERIOR FASCICULAR BLOCK [QRS AXIS <= -45, QR IN I, RS IN II] SEPTAL MYOCARDIAL INFARCTION , PROBABLY OLD [40+ ms Q WAVE IN V1/V2] Compared to ECG 01/16/2024 12:56:06 Left anterior fascicular block now present Sinus rhythm no longer present First degree AV block no longer present Myocardial infarct finding still present Electronically Signed On 01-29-2024 21:38:49 [employer]ANDSCAPE SPECIALIST by Galindo Manuel M.D. [email or web address]
--- NOTE | 2024-01-28 14:44 | W.ED.CHESTPA ---
HPI - Chest Pain General: Chief Complaint: Chest Pain Stated Complaint: CP, Sob Time Seen by Provider: 01/28/24 14:18 Source: patient Mode of arrival: ambulatory Limitations: no limitations History of Present Illness: 78-year-old male history of A-fib CHF coronary disease states he has been having ongoing chest pain since he was discharged from hospital 2 weeks ago he states his pain did worsen today he is also having increased shortness of breath and swelling states he has to sleep sitting up. Rates his pain a 5 out of 10 currently denies any vomiting or diarrhea Associated symptoms: Deny abdominal pain, dyspnea, fever(s), nausea or vomiting Related Data Home Medications Medication Instructions Recorded Confirmed levothyroxine 150 mcg capsule 150 mcg PO DAILY 05/13/19 01/28/24 Co Q-10 100 mg PO DAILY 06/08/20 01/28/24 Triple Magnesium Complex 400 mg PO DAILY 06/08/20 01/28/24 beetroot 4,000 mg PO BID 12/20/20 01/28/24 testosterone cypionate 200 mg/mL 200 mg SUBCUT Q21D 03/19/21 01/28/24 intramuscular oil green lipped mussel 500 mg PO BID 06/22/21 01/28/24 potassium citrate 99 mg capsule 99 mg PO BID 12/13/22 01/28/24 Bifidobacterium infantis 4 mg 1,500 mmu cells PO DAILY 01/15/24 01/28/24 capsule (Align) acetylcarnitine 500 mg capsule 500 mg PO DAILY 01/15/24 01/28/24 amino acids (Amino Acid capsule) 1 cap PO BID 01/15/24 01/28/24 cholecalciferol (vitamin D3) 50 50 mcg PO DAILY 01/15/24 01/28/24 mcg (2,000 unit) tablet (Vitamin D3) lubiprostone 8 mcg capsule 8 mcg PO BID 01/15/24 01/28/24 vitamin B complex 1 tab PO DAILY 01/15/24 01/28/24 zinc sulfate 50 mg zinc (220 mg) 50 mg PO DAILY 01/15/24 01/28/24 tablet amlodipine 2.5 mg tablet 2.5 mg PO DAILY 01/28/24 01/28/24 furosemide 40 mg tablet 40 mg PO DAILY 01/28/24 01/28/24 Previous Rx's Medication Instructions Recorded omeprazole 20 mg capsule,delayed 20 mg PO DAILY #90 caps 12/10/21 release nitroglycerin 0.4 mg sublingual 0.4 mg sublingual Q5M PRN chest 08/02/22 tablet (Nitrostat) pain #25 tabs clopidogrel 75 mg tablet 75 mg PO DAILY 30 days #30 tabs 01/17/24 apixaban 5 mg tablet (Eliquis) 5 mg PO BID@0900,2100 30 days #60 01/18/24 tabs digoxin 125 mcg (0.125 mg) tablet 125 mcg PO DAILY 30 days #30 tabs 01/18/24 metoprolol succinate 25 mg 25 mg PO DAILY 30 days #30 tabs 01/18/24 tablet,extended release 24 hr Allergies Allergy/AdvReac Type Severity Reaction Status Date / Time [id number]-IST-WhM Reductase Allergy Unknown Unknown Verified 12/23/23 12:30 Inhibitor Review of Systems Const: Denies: fever(s), chills, body aches or change in appetite ENMT: Denies: throat pain or dental pain Card: Reports: chest pain Resp: Denies: dyspnea GI: Denies: abdominal pain, nausea, vomiting or diarrhea Musc: Reports: extremity swelling; Denies: neck pain or back pain Skin/Breast: Denies: rash Neuro: Denies: headache(s) PFSH ED PFSH: Medical History Hiatal hernia PAD (peripheral artery disease) Chest pain Thoracic ascending aortic aneurysm Ischemic cardiomyopathy Anterior wall myocardial infarction Statin intolerance Carotid bruit Erectile dysfunction GERD (gastroesophageal reflux disease) Dyslipidemia ASHD (arteriosclerotic heart disease) Surgical History History of heart artery stent Family History Mother , AGE 73 Congestive heart failure (CHF) Other Diabetes Hypertension Social History Smoking and tobacco/nicotine status: never used tobacco/nicotine Alcohol intake: current Alcohol intake frequency: 0-2 Drinks per Day Alcohol type: wine Substance/Drug Use: never Marital status: service: No Current occupational status: retired Physical Exam Const: COMMON NORMALS: patient oriented x3 and healthy appearing HENMT: COMMON NORMALS: normocephalic and atraumatic HEAD & SCALP: normocephalic and atraumatic Eye: COMMON NORMALS: Equal, round and reactive pupils present and EOMs intact bilaterally PUPIL: Yes Equal, round and reactive pupils present Neck/C-Spine: COMMON NORMALS: full ROM and supple Chest: COMMONS NORMALS: normal inspection of the chest Resp: COMMON NORMALS: normal respiratory effort, No retractions, No use of accessory muscles and clear to auscultation bilaterally AUSCULTATION: clear to auscultation bilaterally Cardio: COMMON NORMALS: No murmurs present (Cardio) RATE: tachycardic RHYTHM: abnormal rhythm irregularly irregular GI: COMMON NORMALS: Normal to inspection, nondistended, normoactive bowel sounds present, Soft to palpation, non-tender and no masses PALPATION: Yes Soft to palpation Extremity: COMMON NORMALS: full ROM NARRATIVE EXTREMITY EXAM: 2+ edema Neuro: COMMON NORMALS: patient oriented x3, moves all extremities and no focal motor deficits Psych: COMMON NORMALS: mental status grossly normal, Normal thought process present and cooperative THOUGHT PROCESS: Normal thought process present Skin: COMMON NORMALS: no rashes or lesions noted and no wounds GENERAL SKIN EXAM: no rashes or lesions noted Course Vital Signs: Vital signs: Vital Signs Temperature 97.5 F L 01/28/24 14:22 Pulse Rate 103 H 01/28/24 16:00 Respiratory Rate 31 H 01/28/24 16:00 Blood Pressure 99/65 01/28/24 16:00 Pulse Oximetry 92 01/28/24 16:00 Oxygen Delivery Me thod Room Air 01/28/24 14:22 MDM - Chest Pain Medical Decision Making Patient presents here with chest pains ongoing for weeks he is found to be in A-fib with RVR did start him on amiodarone drip also has leg swelling slight pulm edema we will give him Lasix troponins elevated spoke to hydro generation manager Dr. Coughlin who is consulted will start heparin drip and admit to cardiac stepdown Medical Records I reviewed the patient's medical records. Lab Data I reviewed the patient's lab results. 01/28/24 14:48 01/28/24 14:48 Radiology Impressions Chest X-Ray 01/28/24 14:09 Impression: 1. Cardiomegaly and small bilateral pleural effusions. 2. Atherosclerosis. Laboratory Results WBC 10.93 10^3/uL (3.29-11.43) 01/28/24 14:48 RBC 4.69 10^6/uL (3.85-5.65) 01/28/24 14:48 Hgb 14.40 g/dL (11.27-16.99) 01/28/24 14:48 Hct 42.3 % (37-53) 01/28/24 14:48 MCV 90.2 fl (82-101) 01/28/24 14:48 MCH 30.7 pg (27-33) 01/28/24 14:48 MCHC 34.0 g/dL (30-55) 01/28/24 14:48 RDW 13.2 % (12.1-15.1) 01/28/24 14:48 Plt Count 386 10^3/cmm (157-399) 01/28/24 14:48 MPV 9.8 fL (7.4-10.4) 01/28/24 14:48 Neut % (Auto) 81.5 % 01/28/24 14:48 Lymph % (Auto) 10.5 % 01/28/24 14:48 [place] % (Auto) 6.2 % 01/28/24 14:48 Eos % (Auto) 0.7 % 01/28/24 14:48 Baso % (Auto) 0.5 % 01/28/24 14:48 Neut # (Auto) 8.90 10^3/uL (1.8-7.7) H 01/28/24 14:48 Lymph # (Auto) 1.2 10^3/uL (0.8-4.8) 01/28/24 14:48 [place] # (Auto) 0.7 10^3/uL (0.2-0.9) 01/28/24 14:48 Eos # (Auto) 0.1 10^3/uL (0.0-0.8) 01/28/24 14:48 Baso # (Auto) 0.1 10^3/uL (0.0-0.1) 01/28/24 14:48 Nucleated RBC % (auto) 0 % 01/28/24 14:48 Nucleated RBCs # 0.0 /100WBC 01/28/24 14:48 PT 18.30 SECONDS (12.1-14.9) H 01/28/24 14:48 INR 1.47 (0.8-1.2) H 01/28/24 14:48 Sodium 135 mmol/L (136-145) L 01/28/24 14:48 Potassium 4.6 mmol/L (3.5-5.1) 01/28/24 14:48 Chloride 100 mmol/L (98-107) 01/28/24 14:48 Carbon Dioxide 20 mmol/L (22-29) L 01/28/24 14:48 Anion Gap 19.6 (5-19) H 01/28/24 14:48 BUN 34 mg/dL (8-23) H 01/28/24 14:48 Creatinine 1.5 mg/dL (0.7-1.2) H 01/28/24 14:48 GFR Calculation Not Reportable 01/28/24 14:48 Glucose 138 mg/dL (65-115) H 01/28/24 14:48 Calculated Osmolality 290 mOsm/kg (285-295) 01/28/24 14:48 Calcium 8.8 mg/dL (8.5-10.5) 01/28/24 14:48 Total Bilirubin 0.4 mg/dL (0.15-1.2) 01/28/24 14:48 AST 57 U/L (0-40) H 01/28/24 14:48 ALT 98 U/L (0-41) H 01/28/24 14:48 Alkaline Phosphatase 79 U/L (40-130) 01/28/24 14:48 Troponin T Baseline 1782 ng/L (0-15) H* 01/28/24 14:48 NT-Pro-B Natriuret Pep 82938 pg/mL (0-450) H 01/28/24 14:48 Total Protein 6.0 g/dL (6.6-8.7) L 01/28/24 14:48 Albumin 3.4 g/dL (3.5-5.2) L 01/28/24 14:48 Globulin 2.6 g/dL (1.3-4.6) 01/28/24 14:48 Lipase 31 U/L (13-60) 01/28/24 14:48 Digoxin 0.7 ng/mL (0.6-1.2) 01/28/24 14:48 All radiology interpretation(s) finalized by discharge EKG Data EKG 1: I personally reviewed and interpreted this EKG as follows: EKG interpretation date: 01/28/24 EKG interpretation time: 14:23 Interpretation: afib with rvr hr [address] elevation qrs 88 qtc 364 Critical Care Time Critical Care Time: Critical Care Time: Yes Total Critical Care Time: 40 Attestation: The high probability of a clinically significant, sudden or life threatening deterioration of the patient's cv system(s) required my full and direct attention, intervention and personal management. The critical care time is as shown. This time is in addition to time spent performing any reported procedures but includes the following: [x] Data and vital sign review and interpretation [x] Patient assessment, examination and intervention [x] Documentation [x] Medication orders and management Discharge Plan Discharge Patient Disposition: Admitted As Inpatient Clinical Impression: Non-ST elevation MS (NSTEMI), CHF (congestive heart failure), Atrial fibrillation with RVR Condition: Stable Prescriptions: No Action levothyroxine 150 mcg capsule 150 mcg PO DAILY beetroot 4,000 mg PO BID testosterone cypionate 200 mg/mL oil 200 mg SUBCUT Q21D green lipped mussel 500 mg PO BID Rx Instructions: [id number] tablet potassium citrate 99 mg capsule 99 mg PO BID omeprazole 20 mg capsule,delayed release(DR/EC) 20 mg PO DAILY Qty: 90 3RF nitroglycerin [Nitrostat] 0.4 mg tablet, sublingual 0.4 mg sublingual Q5M PRN (Reason: chest pain) Qty: 25 1RF Rx Instructions: do not exceed 3 doses per episode Co Q-10 100 mg tablet 100 mg PO DAILY Triple Magnesium Complex 400 mg tablet 400 mg PO DAILY acetylcarnitine 500 mg Capsule 500 mg PO DAILY Amino Acid Capsule 1 cap PO BID zinc sulfate 50 mg zinc (220 mg) Tablet 50 mg PO DAILY vitamin B complex Tablet 1 tab PO DAILY Align 4 mg Capsule 1,500 mmu cells PO DAILY Rx Instructions: administer with a meal lubiprostone 8 mcg capsule 8 mcg PO BID cholecalciferol (vitamin D3) [Vitamin D3] 50 mcg (2,000 unit) Tablet 50 mcg PO DAILY clopidogrel 75 mg Tablet 75 mg PO DAILY 30 Days Qty: 30 0RF Eliquis 5 mg Tablet 5 mg PO BID@0900,2100 30 Days Qty: 60 0RF digoxin 125 mcg (0.125 mg) Tablet 125 mcg PO DAILY 30 Days Qty: 30 0RF metoprolol succinate 25 mg Tablet Extended Release 24 Hr 25 mg PO DAILY 30 Days Qty: 30 0RF furosemide 40 mg tablet 40 mg PO DAILY amlodipine 2.5 mg tablet 2.5 mg PO DAILY Referrals: Darryl Victor [Primary Care Provider] - Coding Level of Care Code ED 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
[2024-01-28] MEDS: ondansetron 2 mg/ML SDV 2 mL 4 MG IVP ×2 (15:02→20:25)
[2024-01-28] MEDS: morphine 4 mg/mL SDV 1 mL IVP (15:06)
[2024-01-28 15:10] LABS: Basophils # 0.1 10^3/uL (0.0-0.1); Basophils % 0.5 %; Eosinophils # 0.1 10^3/uL (0.0-0.8); Eosinophils % 0.7 %; Hematocrit 42.3 % (37-53); Lymphocytes # 1.2 10^3/uL (0.8-4.8); Lymphocytes % 10.5 %; Mean Corpuscular Hemoglobin 30.7 pg (27-33); Mean Corpuscular Volume 90.2 fl (82-101); Mean Platelet Volume 9.8 fL (7.4-10.4); Monocytes # 0.7 10^3/uL (0.2-0.9); Monocytes % 6.2 %; Neutrophils % 81.5 %; Nucleated Red Blood Cells % 0 %; Platelet Count 386 10^3/cmm (157-399); Red Blood Count 4.69 10^6/uL (3.85-5.65); Red Cell Distribution Width 13.2 % (12.1-15.1); White Blood Count 10.93 10^3/uL (3.29-11.43)
[2024-01-28] MEDS: amiodarone 150 MG/100 ML PREMIX 400 MG IV (15:11)
[2024-01-28 15:25] LABS: INR 1.47 (0.8-1.2)
[2024-01-28 15:32] LABS: Troponin(5th) Baseline 1782 ng/L (0-15)
[2024-01-28 15:39] LABS: Alanine Aminotransferase 98 U/L (0-41); Albumin Level 3.4 g/dL (3.5-5.2); Alkaline Phosphatase 79 U/L (40-130); Anion Gap 19.6 (5-19); Aspartate Amino Transferase 57 U/L (0-40); Blood Urea Nitrogen 34 mg/dL (8-23); Calcium 8.8 mg/dL (8.5-10.5); Carbon Dioxide 20 mmol/L (22-29); Chloride 100 mmol/L (98-107); Creatinine Clr Calc Pharmacy 48.0233; Globulin 2.6 g/dL (1.3-4.6); Glucose 138 mg/dL (65-115); Lipase 31 U/L (13-60); NT Pro B Type Natriuretic Pept 11988 pg/mL (0-450); Osmolality Calculated 290 mOsm/kg (285-295); Potassium 4.6 mmol/L (3.5-5.1); Sodium 135 mmol/L (136-145); Total Bilirubin 0.4 mg/dL (0.15-1.2)
[2024-01-28] MEDS: aspirin 81 mg Chew Tablet 324 MG PO (15:57)
--- NOTE | 2024-01-28 16:10 | ECG_ITS ---
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 [email or web address]
[2024-01-28 16:14] LABS: Digoxin 0.7 ng/mL (0.6-1.2)
--- NOTE | 2024-01-28 16:45 | P.HP_ITS ---
Providers/Chief Complaint 2 Admitting Physician: Marion Contreras MD Primary Care Provider: Darryl Victor Chief Complaint: CP, Sob History of Present Illness Oskar Varnre is a 78 year old male with established history of coronary artery disease recent angiogram showed complex left circumflex lesion which was not amenable to intervention patient was managed medically he is EF is below 30% he was put on Eliquis for A-fib RVR along diuretics and sent home presenting back with chief complaint of chest pain. Patient stating that he woke up this morning with feeling of shortness of breath associated with chest discomfort which she is describing as someone sitting on his chest, he is describing his chest discomfort on and off without any aggravating relieving factors. It is not associated with nausea vomiting or diarrhea. He is stating that with sublingual nitroglycerin which was given by EMS he felt better. In the ER he was put on amiodarone drip for A-fib RVR at the time of my evaluation his heart rate is around 90s, he is hemodynamic stable chest pain- free patient is stating that he is full code but would like to discuss goals of care with his family and then let us know, cardiology consulted, he has high BNP and significantly elevated troponin EKG not consistent with acute infarct or changes Review of Systems 2 Const: Denies: fever(s) Card: Reports: chest pain and swelling of feet/ankles Resp: Reports: dyspnea GI: Denies: nausea Medications/Allergies Home Medications Medication Instructions Recorded Confirmed Last Taken Type levothyroxine 150 mcg capsule 150 mcg PO DAILY 05/13/19 01/28/24 01/28/24 History Co Q-10 100 mg PO DAILY 06/08/20 01/28/24 01/28/24 History Triple Magnesium Complex 400 mg PO DAILY 06/08/20 01/28/24 01/28/24 History beetroot 4,000 mg PO BID 12/20/20 01/28/24 01/28/24 History testosterone cypionate 200 mg/mL 200 mg SUBCUT Q21D 03/19/21 01/28/24 10/21/21 08:00 History intramuscular oil green lipped mussel 500 mg PO BID 06/22/21 01/28/24 01/28/24 History omeprazole 20 mg capsule,delayed 20 mg PO DAILY #90 caps 12/10/21 01/28/24 01/28/24 Rx release nitroglycerin 0.4 mg sublingual 0.4 mg sublingual Q5M PRN chest 08/02/22 01/28/24 01/14/24 Rx tablet (Nitrostat) pain #25 tabs potassium citrate 99 mg capsule 99 mg PO BID 12/13/22 01/28/24 01/28/24 History Bifidobacterium infantis 4 mg 1,500 mmu cells PO DAILY 01/15/24 01/28/24 01/28/24 History capsule (Align) acetylcarnitine 500 mg capsule 500 mg PO DAILY 01/15/24 01/28/24 01/28/24 History amino acids (Amino Acid capsule) 1 cap PO BID 01/15/24 01/28/24 01/28/24 History cholecalciferol (vitamin D3) 50 50 mcg PO DAILY 01/15/24 01/28/24 01/28/24 History mcg (2,000 unit) tablet (Vitamin D3) lubiprostone 8 mcg capsule 8 mcg PO BID 01/15/24 01/28/24 01/28/24 History vitamin B complex 1 tab PO DAILY 01/15/24 01/28/24 01/28/24 History zinc sulfate 50 mg zinc (220 mg) 50 mg PO DAILY 01/15/24 01/28/24 01/28/24 History tablet clopidogrel 75 mg tablet 75 mg PO DAILY 30 days #30 tabs 01/17/24 01/28/24 01/28/24 Rx apixaban 5 mg tablet (Eliquis) 5 mg PO BID@0900,2100 30 days #60 01/18/24 01/28/24 01/28/24 Rx tabs digoxin 125 mcg (0.125 mg) tablet 125 mcg PO DAILY 30 days #30 tabs 01/18/24 01/28/24 01/28/24 Rx metoprolol succinate 25 mg 25 mg PO DAILY 30 days #30 tabs 01/18/24 01/28/24 01/28/24 Rx tablet,extended release 24 hr amlodipine 2.5 mg tablet 2.5 mg PO DAILY 01/28/24 01/28/24 01/28/24 History furosemide 40 mg tablet 40 mg PO DAILY 01/28/24 01/28/24 01/28/24 History Allergies Allergy/AdvReac Type Severity Reaction Status Date / Time [id number] Reductase Allergy Unknown Unknown Verified 12/23/23 12:30 Inhibitor PFSH Acute 2 PFSH: Medical History Hiatal hernia PAD (peripheral artery disease) Chest pain Thoracic ascending aortic aneurysm Ischemic cardiomyopathy Anterior wall myocardial infarction Statin intolerance Carotid bruit Erectile dysfunction GERD (gastroesophageal reflux disease) Dyslipidemia ASHD (arteriosclerotic heart disease) Surgical History History of heart artery stent Family History Mother , AGE 73 Congestive heart failure (CHF) Other Diabetes Hypertension Social History Smoking and tobacco/nicotine status: never used tobacco/nicotine Alcohol intake: current Alcohol intake frequency: 0-2 Drinks per Day Alcohol type: wine Substance/Drug Use: never Marital status: service: No Current occupational status: retired Vitals/I&O/Wt Last Vital Signs Temp 97.5 F L 01/28/24 14:22 Pulse 103 H 01/28/24 16:00 Resp 31 H 01/28/24 16:00 BP 99/65 01/28/24 16:00 Pulse Ox 92 01/28/24 16:00 O2 Del Method Room Air 01/28/24 14:22 01/28/24 01/28/24 01/28/24 06:59 14:59 22:59 Intake Total 100 / 100 Balance 100 / 100 Weight last 48 hrs Weight 96.162 kg Physical Exam 2 Narrative: Pleasant and cooperative male GCS 15 Nonfocal neuroexam A-fib without RVR Currently on amiodarone drip Does not uncooperative Variable S1-S2 hemodynamically stable No active chest pain No acute shortness of breath Lower extremity significant swelling 3+ extending all the way up to his knees Data 01/28/24 14:48 01/28/24 14:48 A&P Assessment and plan (1) Hypertension: Qualifiers: Hypertension type: primary hypertension Qualified Code(s): I10 - Essential (primary) hypertension (2) Ischemic cardiomyopathy: (3) Systolic heart failure: (4) Statin intolerance: (5) Non-ST elevation MN (NSTEMI): (6) Atrial fibrillation with RVR: (7) Chronic kidney disease: Qualifiers: Chronic kidney disease stage: unspecified stage Qualified Code(s): N 18.9 - Chronic kidney disease, unspecified Plan Non-STEMI No active chest pain Established coronary disease Start ACS protocol A-fib RVR currently on amiodarone drip which needs to be titrated current heart rate is around 80s with stable hemodynamics Systolic CHF exacerbation Continue diuresis Chronic kidney disease: Creatinine 1.5, monitor urine output correlate with creatinine Patient has statin intolerance Cardiology consulted Full code Patient wants to discuss goals of care with her family and let us know Attestations 2 Medical Necessity Statement*: More than 2 midnights anticipated Diagnoses Primary hypertension I10 Hypertension type: primary hypertension Ischemic cardiomyopathy I25.5 Systolic heart failure I50.20 Statin intolerance Z78.9 Non-ST elevation MN (NSTEMI) I21.4 Atrial fibrillation with RVR I48.91 Chronic kidney disease, unspecified CKD stage N18.9 Chronic kidney disease stage: unspecified stage
--- NOTE | 2024-01-28 16:54 | P.CONIM_ITS ---
Providers/Reason For Consult 2 Consulting Physician/Specialty*: Galindo Manuel MD Reason for Consult*: Chest pain, afib rvr Requesting Physician: Dr. Medina Attending Physician: Marion Contreras MD Primary Care Provider: Darryl Victor History of Present Illness History of Present Illness This is a very pleasant 78 year-old gentleman who came into the ED today with a chief complaint of shortness of breath, chest pain, and dizziness. He states he has been having ongoing chest pain for several weeks now. He states it is more of a pressure, and stretches across his chest. It does not radiate. It is associated with shortness of breath. This patient is known to have coronary artery disease and previous PCI. He was discharged in the hospital only a week ago where he was admitted with CHF and atrial fibrillation. Cardiac catheterization at that time revealed moderate diffuse disease in the left and descending artery. The circumflex artery was totally occluded in the midsegment. Nondominant right coronary artery was found to have mild to moderate diffuse disease. It was opted to treat him medically. According the patient, he was getting more more short of breath, ever since the hospital discharge. He came to the hospital for a scheduled appointment to the clinic. But has a recent hospital, he became more short of breath and also started having more chest pain. For that reason, he was evaluated in the emergency room. He was found to be in decompensated heart failure. Also was in atrial fibrillation. He is admitted to the hospital for further evaluation management. This patient is known to have high blood pressure, dyslipidemia, chronic kidney disease . He started noticing swelling of the lower extremities since the last hospital admission. He had LV ejection fraction of 25%, based on the most recent echocardiogram. His ejection fraction was around 35% prior to the last hospital admission. Denies any fever or chills. No cough. He has some amount of orthopnea. He seems to be a poor historian. Has some generalized weakness and lethargy. Review of Systems 2 Narrative: CONSTITUTIONAL: No fever or chills. [] EYES: No blurring of vision or other visual disturbances lately. [] ENT: No hoarseness of voice, auditory disturbances or sore throat. [] CARDIOVASCULAR: As mentioned above. [] RESPIRATORY: Shortness of breath and dry cough GASTROINTESTINAL: No hematemesis or melena. [] GENITOURINARY: No dysuria or hematuria. [] INTEGUMENTARY: No skin rashes or history of skin cancer. [] NEURO: No transient ischemic attacks or amaurosis. [] PSYCHIATRIC: No history of psychosis or major depression. [] HEMATOLOGIC: No bleeding disorders or significant anemia. [] ENDOCRINE: No history of polyuria or polydipsia. [] MUSCULOSKELETAL: Bilateral peripheral edema ALLERGY/IMMUNOLOGY: As mentioned above. [] Medications/Allergies Home Medications Medication Instructions Recorded Confirmed Last Taken Type levothyroxine 150 mcg capsule 150 mcg PO DAILY 05/13/19 01/28/24 01/28/24 History Co Q-10 100 mg PO DAILY 06/08/20 01/28/24 01/28/24 History Triple Magnesium Complex 400 mg PO DAILY 06/08/20 01/28/24 01/28/24 History beetroot 4,000 mg PO BID 12/20/20 01/28/24 01/28/24 History testosterone cypionate 200 mg/mL 200 mg SUBCUT Q21D 03/19/21 01/28/24 10/21/21 08:00 History intramuscular oil green lipped mussel 500 mg PO BID 06/22/21 01/28/24 01/28/24 History omeprazole 20 mg capsule,delayed 20 mg PO DAILY #90 caps 12/10/21 01/28/24 01/28/24 Rx release nitroglycerin 0.4 mg sublingual 0.4 mg sublingual Q5M PRN chest 08/02/22 01/28/24 01/14/24 Rx tablet (Nitrostat) pain #25 tabs potassium citrate 99 mg capsule 99 mg PO BID 12/13/22 01/28/24 01/28/24 History Bifidobacterium infantis 4 mg 1,500 mmu cells PO DAILY 01/15/24 01/28/24 01/28/24 History capsule (Align) acetylcarnitine 500 mg capsule 500 mg PO DAILY 01/15/24 01/28/24 01/28/24 History amino acids (Amino Acid capsule) 1 cap PO BID 01/15/24 01/28/24 01/28/24 History cholecalciferol (vitamin D3) 50 50 mcg PO DAILY 01/15/24 01/28/24 01/28/24 History mcg (2,000 unit) tablet (Vitamin D3) lubiprostone 8 mcg capsule 8 mcg PO BID 01/15/24 01/28/24 01/28/24 History vitamin B complex 1 tab PO DAILY 01/15/24 01/28/24 01/28/24 History zinc sulfate 50 mg zinc (220 mg) 50 mg PO DAILY 01/15/24 01/28/24 01/28/24 History tablet clopidogrel 75 mg tablet 75 mg PO DAILY 30 days #30 tabs 01/17/24 01/28/24 01/28/24 Rx apixaban 5 mg tablet (Eliquis) 5 mg PO BID@0900,2100 30 days #60 01/18/24 01/28/24 01/28/24 Rx tabs digoxin 125 mcg (0.125 mg) tablet 125 mcg PO DAILY 30 days #30 tabs 01/18/24 01/28/24 01/28/24 Rx metoprolol succinate 25 mg 25 mg PO DAILY 30 days #30 tabs 01/18/24 01/28/24 01/28/24 Rx tablet,extended release 24 hr amlodipine 2.5 mg tablet 2.5 mg PO DAILY 01/28/24 01/28/24 01/28/24 History furosemide 40 mg tablet 40 mg PO DAILY 01/28/24 01/28/24 01/28/24 History Allergies Allergy/AdvReac Type Severity Reaction Status Date / Time Fztvlwb-AUV-LiR Reductase Allergy Unknown Unknown Verified 12/23/23 12:30 Inhibitor Current Medications Generic Name Dose Route Start Last Admin Trade Name Freq PRN Reason Stop Dose Admin Amiodarone HCl/Dextrose 360 mg in 200 mls @ 0 mls/hr 01/28/24 15:04 01/28/24 15:50 Nexterone IV 1 mg/min .Q0M ABDON 33.33 mls/hr Administration Protocol Per Protocol PFSH Acute 2 PFSH: Medical History Hiatal hernia PAD (peripheral artery disease) Chest pain Thoracic ascending aortic aneurysm Ischemic cardiomyopathy Anterior wall myocardial infarction Statin intolerance Carotid bruit Erectile dysfunction GERD (gastroesophageal reflux disease) Dyslipidemia ASHD (arteriosclerotic heart disease) Surgical History History of heart artery stent Family History Mother , AGE 73 Congestive heart failure (CHF) Other Diabetes Hypertension Social History Smoking and tobacco/nicotine status: never used tobacco/nicotine Alcohol intake: current Alcohol intake frequency: 0-2 Drinks per Day Alcohol type: wine Substance/Drug Use: never Marital status: service: No Current occupational status: retired Vitals/I&O/Wt Last Vital Signs Temp 97.5 F L 01/28/24 14:22 Pulse 103 H 01/28/24 16:00 Resp 31 H 01/28/24 16:00 BP 99/65 01/28/24 16:00 Pulse Ox 92 01/28/24 16:00 O2 Del Method Room Air 01/28/24 14:22 01/28/24 01/28/24 01/28/24 06:59 14:59 22:59 Intake Total 100 / 100 Balance 100 / 100 Weight last 48 hrs Weight 212 lb Physical Exam 2 Narrative: GENERAL: The patient is alert and oriented times three. Not in any acute distress. Somewhat lethargic HEENT: Mild pallor. No, icterus or lymphadenopathy.Oral cavity: There are no mucous membrane lesions. NECK: Trachea appears to be central. No masses noted. No JVD or thyromegaly appreciated. RESPIRATORY: Chest is symmetrical. No intercostals muscle retraction or any accessory muscle activation. There is no chest wall tenderness. Breath sounds are heard bilaterally. No rales or rhonchi heard. No evidence of any consolidation. BREASTS: Deferred. HEART: The first heart sound is variable. Second heart sound is normal. No S3. Systolic murmur grade 3 or 6 in the lower sternal border. No diastolic murmurs. ABDOMEN: Minimal epigastric tenderness. Bowel sounds are normally had. : Deferred. RECTAL: Deferred. LYMPHATIC: No lymphadenopathy noted in the neck. EXTREMITIES: 2+ edema both lower extremities. No cyanosis. MUSCULOSKELETAL: No acute joint deformities or swelling SKIN: There are no significant rashes or ecchymosis NEUROPSYCHIATRIC: The patient is alert and oriented x3. No focal motor deficits. Data 01/28/24 14:48 01/28/24 14:48 Other Labs: Laboratory Last Values WBC 10.93 10^3/uL (3.29-11.43) 01/28/24 14:48 RBC 4.69 10^6/uL (3.85-5.65) 01/28/24 14:48 Hgb 14.40 g/dL (11.27-16.99) 01/28/24 14:48 Hct 42.3 % (37-53) 01/28/24 14:48 MCV 90.2 fl (82-101) 01/28/24 14:48 MCH 30.7 pg (27-33) 01/28/24 14:48 MCHC 34.0 g/dL (30-55) 01/28/24 14:48 RDW 13.2 % (12.1-15.1) 01/28/24 14:48 Plt Count 386 10^3/cmm (157-399) 01/28/24 14:48 MPV 9.8 fL (7.4-10.4) 01/28/24 14:48 Neut % (Auto) 81.5 % 01/28/24 14:48 Lymph % (Auto) 10.5 % 01/28/24 14:48 [place] % (Auto) 6.2 % 01/28/24 14:48 Eos % (Auto) 0.7 % 01/28/24 14:48 Baso % (Auto) 0.5 % 01/28/24 14:48 Neut # (Auto) 8.90 10^3/uL (1.8-7.7) H 01/28/24 14:48 Lymph # (Auto) 1.2 10^3/uL (0.8-4.8) 01/28/24 14:48 [place] # (Auto) 0.7 10^3/uL (0.2-0.9) 01/28/24 14:48 Eos # (Auto) 0.1 10^3/uL (0.0-0.8) 01/28/24 14:48 Baso # (Auto) 0.1 10^3/uL (0.0-0.1) 01/28/24 14:48 Nucleated RBC % (auto) 0 % 01/28/24 14:48 Nucleated RBCs # 0.0 /100WBC 01/28/24 14:48 PT 18.30 SECONDS (12.1-14.9) H 01/28/24 14:48 INR 1.47 (0.8-1.2) H 01/28/24 14:48 Sodium 135 mmol/L (136-145) L 01/28/24 14:48 Potassium 4.6 mmol/L (3.5-5.1) 01/28/24 14:48 Chloride 100 mmol/L (98-107) 01/28/24 14:48 Carbon Dioxide 20 mmol/L (22-29) L 01/28/24 14:48 Anion Gap 19.6 (5-19) H 01/28/24 14:48 BUN 34 mg/dL (8-23) H 01/28/24 14:48 Creatinine 1.5 mg/dL (0.7-1.2) H 01/28/24 14:48 GFR Calculation Not Reportable 01/28/24 14:48 Glucose 138 mg/dL (65-115) H 01/28/24 14:48 Calculated Osmolality 290 mOsm/kg (285-295) 01/28/24 14:48 Calcium 8.8 mg/dL (8.5-10.5) 01/28/24 14:48 Total Bilirubin 0.4 mg/dL (0.15-1.2) 01/28/24 14:48 AST 57 U/L (0-40) H 01/28/24 14:48 ALT 98 U/L (0-41) H 01/28/24 14:48 Alkaline Phosphatase 79 U/L (40-130) 01/28/24 14:48 Troponin T Baseline 1782 ng/L (0-15) H* 01/28/24 14:48 Troponin T 120 Minute 2013 ng/L (0-15) H 01/28/24 16:45 Delta Troponin T 231 ABS# (0-10) H* 01/28/24 16:45 NT-Pro-B Natriuret Pep 48873 pg/mL (0-450) H 01/28/24 14:48 Total Protein 6.0 g/dL (6.6-8.7) L 01/28/24 14:48 Albumin 3.4 g/dL (3.5-5.2) L 01/28/24 14:48 Globulin 2.6 g/dL (1.3-4.6) 01/28/24 14:48 Lipase 31 U/L (13-60) 01/28/24 14:48 Digoxin 0.7 ng/mL (0.6-1.2) 01/28/24 14:48 Other data: 01/05/24 Echo Complete CONCLUSIONS Severely reduced LV systolic function. Estimated LVEF 25%. Mild hypokinesis of inferior, inferoseptal inferoapical and mid basal inferolateral wall segments. Moderate mitral regurgitation. Mild aortic regurgitation. Elevated right heart and pulmonary pressures. Pulmonary artery systolic pressure 45 to 50 mmHg. Chest x-ray from 01/28/2024 Impression: 1. Cardiomegaly and small bilateral pleural effusions. 2. Atherosclerosis. EKG from 01/28/2024 The EKG showed atrial fibrillation with rapid ventricular rate of 106 bpm. Minimal left axis deviation. Diffuse nonspecific T wave changes. Possible old septal CO. 10/22/21 Conclusions 1. LAD and left circumflex have separate ostia. LAD has patent proximal artery stent. Mild to moderate diffuse luminal irregularities are seen. Left circumflex artery is a codominant vessel. No significant stenosis is seen. RCA is a small to medium sized vessel. No significant stenosis is seen.. A&P Assessment and plan (1) Chest pain: Patient seems to have markedly elevated persistent troponin T. His clinical features may suggest stuttering non-ST elevation CO. It is not clear whether he he is occluding the other vessels at this time or not. EKG has no significant changes. If he has ongoing recurrence of chest pain, may require repeat angiogram. I will be discussing this with Dr. Snider in the morning Qualifiers: Chest pain type: unspecified Qualified Code(s): R07.9 - Chest pain, unspecified (2) Atrial fibrillation with RVR: Patient was started on amiodarone drip in the emergency room. For the time being this may be continued. The heart rate seems to be under control at this point. He will be closely monitored on telemetry. He is also on IV heparin. (3) CHF (congestive heart failure): Patient has features of decompensated heart failure. He will be carefully treated with IV diuretics. If the kidney function is stable, may consider GDMT Qualifiers: Heart failure chronicity: acute on chronic Heart failure type: combined systolic and diastolic Qualified Code(s): I50.43 - Acute on chronic combined systolic (congestive) and diastolic (congestive) heart failure (4) Hypertension: Well-controlled. Blood pressure soft at this time. Qualifiers: Hypertension type: primary hypertension Qualified Code(s): I10 - Essential (primary) hypertension (5) Chronic kidney disease: The BUN/creatinine seems to be stable at this point. May keep a close eye on the kidney function. Qualifiers: Chronic kidney disease stage: unspecified stage Qualified Code(s): N 18.9 - Chronic kidney disease, unspecified Plan Continue the careful IV diuresis and other symptomatic measures. The Plavix, aspirin and heparin will be continued. Based on the clinical progress, further recommendations will be made. Thank you for the opportunity to evaluate this patient make these recommendations Consult Attestations 2 Medical Necessity Statement: Patient stay is expected to cross 2 midnights due to A-fib RVR chest pain and CHF exacerbation. Coding Level of Care Code 09864 Diagnoses Chest pain, unspecified type R07.9 Chest pain type: unspecified Atrial fibrillation with RVR I48.91 Acute on chronic combined systolic and diastolic congestive heart failure I50.43 Heart failure chronicity: acute on chronic Heart failure type: combined systolic and diastolic Primary hypertension I10 Hypertension type: primary hypertension Chronic kidney disease, unspecified CKD stage N18.9 Chronic kidney disease stage: unspecified stage
[2024-01-28] MEDS: FUROsemide 10 mg/mL SDV 10mL 60 MG IVP (17:22)
[2024-01-28] MEDS: pantoprazole 40 mg SDV IVP (17:34)
[2024-01-28] MEDS: heparin 5,000 unit/mL INJ 1 mL IVP (17:46)
[2024-01-28] MEDS: heparin drip 25,000 UNIT/500 ML PREMIX 27 UNIT IV (17:48)
[2024-01-28 17:50] LABS: Troponin 5 2HR 2013 ng/L (0-15)
[2024-01-28 17:51] LABS: Troponin 5 2HR Delta 231 ABS# (0-10)
--- NOTE | 2024-01-28 19:22 | PC.NURSE ---
Addendum entered by Edd Joseph RN 01/28/24 19:30: Brusing to the lower abdomen found on assessment. Appears to be in locations where heparin or lovenox shots would have been administered. When asked about the bruises patient states you guys did that to me last time i was here . Patient was recently discharged 2 days ago. Original Note: Received patient from ER staff at 1826. Patient is alert and oriented to person, place, time, and situation. On an amiodarone and heparin drip. PTT ordered for 2340 HR: 88, irregular/afib currently on 1mg/min of amiodarone SPO2: 98% Room air Tempt: 96.9 axillary RR: 14 BP: 98/66 During initial assessment, nurse found that the patient had not urinated since he received lasix over 1.5 hours ago. Refused munoz in ER. Nurse bladder scanned patient and it shows that he is retaining 120mL. Nurse expected more urine at this point, causing concern for worsening fluid overload since he has been unresponsive to lasix thus far. Nurse alerted Dr Contreras. No new orders, continue to monitor. nurse discussed importance of munoz catheter to the patient. Bladder scanner and urinal at bedside. Patient seems receptive to receiving munoz catheter if necessary for accurate I/O and urinary retention, but wants to avoid it if possible.
--- NOTE | 2024-01-28 20:10 | ECG_ITS ---
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 Measurements Intervals [place] Rate: 78 P: 0 [place]: 0 QRS: -35 QRSD: 94 T: -53 QT: 359 QTc: 410 Interpretive Statements ATRIAL FIBRILLATION LEFT AXIS DEVIATION [QRS AXIS < -30] SEPTAL MYOCARDIAL INFARCTION , PROBABLY OLD [40+ ms Q WAVE IN V1/V2] Compared to ECG 01/28/2024 16:25:01 No significant changes Electronically Signed On 02-02-2024 19:38:14 MILK TANKER DRIVER by Galindo Manuel M.D. [id number]
--- NOTE | 2024-01-28 20:44 | USCV_ITS ---
Oskar Varner Age: 78 Gender: M : 1945 Exam Date: 01/28/2024 21:39 Ordering Phys: Galindo Manuel MD ([email or web address]) Technologist: KENNETH [place] [facility] [place] BP: 110 / 84 HR: 71 Rhythm: Atrial fibrillation Technical Quality: Adequate MEASUREMENTS (Male / Female) Normal Values 2D ECHO LV Diastolic Diameter PLAX 6.4 cm 4.2 - 5.9 / 3.9 - 5.3 cm IVS Diastolic Thickness 1.4 cm 0.6 - 1.0 / 0.6 - 0.9 cm IVS Systolic Thickness 1.7 cm LVPW Diastolic Thickness 1.3 cm 0.6 - 1.0 / 0.6 - 0.9 cm LVPW Systolic Thickness 1.1 cm LV Ejection Fraction 2D Teich 5.4 % LV Ejection Fraction MOD 4C 13.4 % LV Ejection Fraction MOD 2C 35.9 % LV Ejection Fraction 2C AL 37.5 % IVC Diameter 2.9 cm DOPPLER TR Peak Velocity 307.0 cm/s TR Peak Gradient 37.7 mmHg Right Atrial Pressure 10.0 mmHg Pulmonary Artery Systolic Pressu 47.7 mmHg FINDINGS Left Ventricle Severe diffuse hypokinesis of the left ventricle with an ejection fraction of around 13%. Moderately mildly dilated LV cavity Right Ventricle Normal RV size with slightly diminished ejection fraction Right Atrium Mildly increased right atrial size. Left Atrium Moderately increased left atrial size. Mitral Valve Moderate-severe mitral valve regurgitation. Aortic Valve Thickened aortic valve. Mild aortic valve regurgitation. Tricuspid Valve Hgfgqiqh-gk-qyvqau tricuspid valve regurgitation. Estimated pulmonary artery peak systolic pressure 53 mmHg Pulmonic Valve No gross abnormalities noted Pericardium No pericardial effusion. Aorta Normal aortic annulus size. IVC Dilated IVC with decreased respiratory variation. CONCLUSIONS Severe diffuse hypokinesis of the left ventricle with an ejection fraction of around 13%. Moderately mildly dilated LV cavity. Moderately increased left atrial size. Mildly increased right atrial size. Normal RV size with slightly diminished ejection fraction. Moderate-severe mitral valve regurgitation. Thickened aortic valve. Mild aortic valve regurgitation. Hvweezor-zc-cyjinw tricuspid valve regurgitation. Estimated pulmonary artery peak systolic pressure 53 mmHg. There is no pericardial effusion. There are no intracardiac masses. Compared to the study from 01/15/2024, there is worsening of the LV systolic function; mitral and tricuspid regurgitation Dr Galindo Manuel MD [facility] (Electronically Signed) Final Date: 29 January 2024 21:06 S
[2024-01-28 21:40] LABS: Troponin 5 6HR 2514 ng/L (0-15); Troponin 5 6HR Delta 732 ng/L (0-12)
--- NOTE | 2024-01-28 22:48 | PC.NURSE ---
Patient refusing Oliva catheter
[2024-01-29] VITALS (40 sets, daily range): BP systolic 96–126; BP diastolic 55–93; PULSE 63–75; RESP 13–39; TEMP 36.4–36.7; O2SAT 90–99
[2024-01-29 00:40] LABS: Partial Thromboplastin Time 34.8 SECONDS (23.9-36.7)
[2024-01-29] MEDS: heparin 5,000 unit/mL INJ 1 mL IVP (01:35)
[2024-01-29 05:11] LABS: Basophils % 0.3 %; Eosinophils % 0.1 %; Hematocrit 46.4 % (37-53); Lymphocytes # 1.1 10^3/uL (0.8-4.8); Lymphocytes % 8.2 %; Mean Corpuscular HGB Conc 31.5 g/dL (30-55); Mean Corpuscular Hemoglobin 30.7 pg (27-33); Mean Corpuscular Volume 97.7 fl (82-101); Mean Platelet Volume 9.9 fL (7.4-10.4); Monocytes # 0.8 10^3/uL (0.2-0.9); Monocytes % 6.3 %; Neutrophils # 11.03 10^3/uL (1.8-7.7); Nucleated Red Blood Cells % 0 %; Platelet Count 353 10^3/cmm (157-399); Red Blood Count 4.75 10^6/uL (3.85-5.65); Red Cell Distribution Width 13.5 % (12.1-15.1); White Blood Count 13.12 10^3/uL (3.29-11.43)
[2024-01-29 05:45] LABS: Albumin Level 2.9 g/dL (3.5-5.2); Alkaline Phosphatase 84 U/L (40-130); Blood Urea Nitrogen 42 mg/dL (8-23); Calcium 8.5 mg/dL (8.5-10.5); Carbon Dioxide 11 mmol/L (22-29); Chloride 98 mmol/L (98-107); Creatinine Clr Calc Pharmacy 30.0337; Globulin 3.3 g/dL (1.3-4.6); Glucose 170 mg/dL (65-115); Magnesium 2.4 mg/dL (1.7-2.3); Osmolality Calculated 288 mOsm/kg (285-295); Sodium 132 mmol/L (136-145); Total Bilirubin 0.7 mg/dL (0.15-1.2); Total Protein 6.2 g/dL (6.6-8.7)
[2024-01-29 06:00] LABS: Alanine Aminotransferase 1053 U/L (0-41)
[2024-01-29 06:05] LABS: Aspartate Amino Transferase 1213 U/L (0-40)
[2024-01-29] MEDS: ondansetron 2 mg/ML SDV 2 mL 4 MG IVP (07:36)
[2024-01-29 08:12] LABS: Partial Thromboplastin Time 209.2 SECONDS (23.9-36.7)
[2024-01-29] MEDS: FUROsemide 40 mg Tablet PO (08:56)
[2024-01-29] MEDS: aspirin 81 mg EC Tablet PO (08:56)
[2024-01-29] MEDS: levothyroxine 150 mcg Tablet PO (08:56)
[2024-01-29] MEDS: metoprolol succinate ER (24 HR) 25 mg Tablet PO (08:56)
[2024-01-29] MEDS: clopidogrel 75 mg Tablet PO (08:56)
--- NOTE | 2024-01-29 10:28 | ECG_ITS ---
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 Measurements Intervals [place] Rate: 68 P: -16 MT: 204 QRS: 8 QRSD: 97 T: -54 QT: 415 QTc: 442 Interpretive Statements SINUS RHYTHM WITH OCCASIONAL VENTRICULAR PREMATURE COMPLEXES INDETERMINATE AXIS SEPTAL MYOCARDIAL INFARCTION , PROBABLY OLD [40+ ms Q WAVE IN V1/V2] MODERATE T-WAVE ABNORMALITY, CONSIDER INFERIOR ISCHEMIA [-0.1+ mV T-WAVE IN II/aVF] Compared to ECG 01/28/2024 21:23:20 Ventricular premature complex(es) now present Indeterminate axis now present.T-wave abnormality now present Possible ischemia now present. Atrial fibrillation no longer present Left-axis deviation no longer present. Myocardial infarct finding still present Electronically Signed On 02-02-2024 19:38:10 TAFE LECTURER by Galindo Manuel M.D. [email or web address]
[2024-01-29] MEDS: heparin drip 25,000 UNIT/500 ML PREMIX 33 UNIT IV (12:16)
[2024-01-29] MEDS: FUROsemide 10 mg/mL SDV 4mL 40 MG IVP (12:54)
[2024-01-29 13:35] LABS: Acetaminophen < 5.0 ug/mL (10-30)
[2024-01-29 13:55] LABS: Partial Thromboplastin Time 105.7 SECONDS (23.9-36.7)
[2024-01-29 14:48] LABS: Hepatitis A Antibody IgM Non-Reactive (Nonreactive); Hepatitis B Core AB, Total Non-Reactive (Nonreactive); Hepatitis B Surface AB < 3.5 (11.5-1000); Hepatitis B Surface Antigen Non-Reactive (Nonreactive); Hepatitis C Virus Antibody Non-Reactive (Nonreactive)
--- NOTE | 2024-01-29 15:52 | PM.PN ---
Documented by User: Ghada Modi NP 01/29/24 16:03 Subjective Subjective: Patient is now in sinus rhythm. Heart rate much more controlled. He still has symptoms of shortness of breath and severe orthopnea. He states he has occasional chest pains. Medications: Reviewed: Yes Vitals/I&O/Wt Last Vital Signs Temp 97.5 F L 01/29/24 04:48 Pulse 66 01/29/24 12:00 Resp 18 01/29/24 11:00 BP 126/84 01/29/24 12:00 Pulse Ox 98 01/29/24 11:30 O2 Del Method Nasal Cannula 01/29/24 10:34 O2 Flow Rate 2 01/29/24 10:34 01/29/24 01/29/24 01/29/24 06:59 14:59 22:59 Intake Total 306.2 / 665.6 310.75 / 310.75 Output Total 100 / 200 Balance 206.2 / 465.6 310.75 / 310.75 Weight last 48 hrs Weight 212 lb 4.8 oz Weight 215 lb 9.6 oz Weight 212 lb Physical Exam Narrative: General: No apparent distress, healthy appearing Neck: No carotid bruit bilaterally Muskuloskeletal: Full ROM Respiratory: Normal respiratory effort, bilateral lower lobes crackles present, no use of accessory muscles Cardio: No JVD, regular rate, regular rhythm, S1 S2 normal, no murmurs, peripheral pulses 2+ radial palpated bilaterally Extremities: Full ROM, normal, normal capillary refill, no cyanosis, 2+ pitting edema bilaterally Neuro: Alert and oriented x3 Psych: Affect normal, denies suicidal ideation, mental status grossly normal Skin: No rashes or lesions noted, no wounds Urinary Catheter Management: Oliva: Cath Placed During This Visit: yes Urinary Catheter Date of Insertion: 01/29/24 Urinary Catheter Time of Insertion: 15:19 Data 01/29/24 04:45 01/29/24 18:52 A&P Assessment and plan (1) Chest pain: Patient has markedly elevated persistent troponin T. He may have a combination of NSTEMI and CHF overload. It is not clear whether he he is occluding the other vessels at this time or not. EKG has no significant changes. If he has ongoing recurrence of chest pain, may require repeat angiogram. At this time, he is fluid volume overloaded. Will need to be euvolemic prior to intervention. He does have a possible proximal LAD lesion that could be the culprit of his issues. Qualifiers: Chest pain type: unspecified Qualified Code(s): R07.9 - Chest pain, unspecified (2) Atrial fibrillation with RVR: Patient was started on amiodarone drip in the emergency room. We will transition him to oral amiodarone 400 twice daily. He is in normal sinus at this time (3) CHF (congestive heart failure): Patient has features of decompensated heart failure. He will treated with IV diuretics. Will have to monitor kidney function. Creat is at 2.4 with baseline being around 1.3-1.5. Will give lasix 40 mg TID with potassium. Qualifiers: Heart failure chronicity: acute on chronic Heart failure type: combined systolic and diastolic Qualified Code(s): I50.43 - Acute on chronic combined systolic (congestive) and diastolic (congestive) heart failure (4) Hypertension: Well-controlled. Blood pressure soft at this time. Qualifiers: Hypertension type: primary hypertension Qualified Code(s): I10 - Essential (primary) hypertension (5) Chronic kidney disease: Will have to monitor with diuresis. Qualifiers: Chronic kidney disease stage: unspecified stage Qualified Code(s): N18.9 - Chronic kidney disease, unspecified Plan Patient has pitting edema, severe orthopnea, and crackles throughout lungs. Will diurese with lasix. Continue Plavix, aspirin and heparin will be continued. Based on the clinical progress, further recommendations will be made. Attestations Medical Necessity Statement*: NSTEMI, atrial fibrillation requiring intravenous medication as well as cardiac monitoring Coding Level of Care Code Acute Code for [facility] Diagnoses Chest pain, unspecified type R07.9 Chest pain type: unspecified Atrial fibrillation with RVR I48.91 Acute on chronic combined systolic and diastolic congestive heart failure I50.43 Heart failure chronicity: acute on chronic Heart failure type: combined systolic and diastolic Primary hypertension I10 Hypertension type: primary hypertension Chronic kidney disease, unspecified CKD stage N18.9 Chronic kidney disease stage: unspecified stage Documented by User: Bhavin Snider MD 01/29/24 22:26 Subjective Subjective: Patient was evaluated and cared for in conjunction with an advanced practice practitioner. I personally examined the patient and reviewed the chart and all pertinent data including imaging, telemetry, and laboratory results. I discussed the patient in detail with the advanced practice practitioner. Please see their note for complete H&P testing result and agreed upon plan of care for the patient. Patient denies chest pain but appeared to be short of breath, he is in sinus rhythm GENERAL: Patient is alert, awake and oriented x3. HEART: Regular S1 and S2. No murmur, rub or gallop. LUNGS: Inspiratory basal to mid crackles CENTRAL NERVOUS SYSTEM: Grossly nonfocal. EXTREMITIES: Lower extremities with 2+ edema bilaterally. Assessment and plan Acute on chronic decompensated systolic heart failure Severe LV dysfunction estimated ejection fraction 13% Acute on chronic kidney injury Electrolyte imbalance Assessment and plan Patient clearly appeared to be volume overloaded with decompensated systolic heart failure hypoperfusion and cardiorenal etiology and congestive heart failure leading to high right-sided pressure resulting in liver congestion and transaminitis, I would therefore try to diurese him, discussed with nephrology initially patient was started on IV Lasix but we will switch him to furosemide drip with addition of metolazone, once euvolemic may will consider left heart cath and IFR of mid and distal LAD lesion if appeared to be hemodynamically significant may try to address with revascularization with the help of PCI. Continue to monitor urine output and electrolytes Further plan will be devised as per progress the patient Patient is now in sinus rhythm. Heart rate much more controlled. He still has symptoms of shortness of breath and severe orthopnea. He states he has occasional chest pains. Physical Exam Urinary Catheter Management: Oliva: Cath Placed During This Visit: yes Data 01/29/24 04:45 01/29/24 18:52 A&P Assessment and plan (1) Chest pain: Qualifiers: Chest pain type: unspecified Qualified Code(s): R07.9 - Chest pain, unspecified (2) Atrial fibrillation with RVR: (3) CHF (congestive heart failure): Qualifiers: Heart failure chronicity: acute on chronic Heart failure type: combined systolic and diastolic Qualified Code(s): I50.43 - Acute on chronic combined systolic (congestive) and diastolic (congestive) heart failure (4) Hypertension: Qualifiers: Hypertension type: primary hypertension Qualified Code(s): I10 - Essential (primary) hypertension (5) Chronic kidney disease: Qualifiers: Chronic kidney disease stage: unspecified stage Qualified Code(s): N18.9 - Chronic kidney disease, unspecified Coding Level of Care Code Acute Code for [facility] Diagnoses Chest pain, unspecified type R07.9 Chest pain type: unspecified Atrial fibrillation with RVR I48.91 Acute on chronic combined systolic and diastolic congestive heart failure I50.43 Heart failure chronicity: acute on chronic Heart failure type: combined systolic and diastolic Primary hypertension I10 Hypertension type: primary hypertension Chronic kidney disease, unspecified CKD stage N18.9 Chronic kidney disease stage: unspecified stage
--- NOTE | 2024-01-29 16:00 | P.PN_ITS ---
Subjective 2 Subjective: Seen and examined at 12 PM. Continues to complain of nausea. Currently on 2 L/min supplemental O2. Heart rate at 75. Ongoing amiodarone infusion. Medications: Reviewed: Yes Vitals/I&O/Wt Last Vital Signs Temp 97.5 F L 01/29/24 04:48 Pulse 75 01/29/24 16:00 Resp 16 01/29/24 16:00 BP 115/85 01/29/24 16:00 Pulse Ox 98 01/29/24 16:00 O2 Del Method Nasal Cannula 01/29/24 10:34 O2 Flow Rate 2 01/29/24 10:34 01/29/24 01/29/24 01/29/24 06:59 14:59 22:59 Intake Total 306.2 / 665.6 310.75 / 310.75 100 / 410.75 Output Total 100 / 200 75 / 75 Balance 206.2 / 465.6 310.75 / 310.75 25 / 335.75 Weight last 48 hrs Weight 96.298 kg Weight 97.795 kg Weight 96.162 kg Physical Exam 2 Narrative: General: No acute distress, AO x3 HEENT: PERRLA, pupils bilaterally equal and reactive, pallors not present Chest: Crackles to auscultation bilaterally CVS: S1-S2 regular, no murmurs, no tachycardia, no gallops, no rubs Abdomen: Soft, nontender, no organomegaly, bowel sounds present Neuro: No focal deficits, no facial deformity, AO x3, power 5/5 in all limbs Extremities: Bilateral lower extremity edema Urinary Catheter Management: Oliva: Cath Placed During This Visit: yes Reason for Continuing Indwelling Catheter: Accurate Measurement of Urinary Output in Critically Ill Patients Urinary Catheter Date of Insertion: 01/29/24 Urinary Catheter Time of Insertion: 15:19 Data 01/29/24 04:45 01/29/24 04:45 A&P Assessment and plan (1) Hypertension: Qualifiers: Hypertension type: primary hypertension Qualified Code(s): I10 - Essential (primary) hypertension (2) Ischemic cardiomyopathy: (3) Systolic heart failure: (4) Statin intolerance: (5) Non-ST elevation [place] (NSTEMI): (6) Atrial fibrillation with RVR: (7) Chronic kidney disease: Qualifiers: Chronic kidney disease stage: unspecified stage Qualified Code(s): N 18.9 - Chronic kidney disease, unspecified Plan Non-STEMI No active chest pain Established coronary disease Start ACS protocol A-fib RVR currently on amiodarone drip which needs to be titrated current heart rate is around 80s with stable hemodynamics Systolic CHF exacerbation Continue diuresis Chronic kidney disease: Creatinine 1.5, monitor urine output correlate with creatinine Patient has statin intolerance Cardiology consulted Full code Patient wants to discuss goals of care with her family and let us know 01/29/2024 : Patient has been receiving IV diuresis with Lasix, however has had no urine output. No urge to urinate. Bladder scan without any significant retention. Oliva catheter placed for accurate output measurement. Minimal urine at placement. Labs show interval worsening. LFTs worse with AST ALT greater than thousand. Normal alkaline phosphatase and T. bili. Acute hepatitis screen negative. Kidney function worsened with creatinine at 2.4 today. Overall clinical picture consistent with cardiogenic shock with previously known EF of 25% with hypokinesia, mild hypokinesis of the inferior inferoseptal and mid basal segments. Elevated right heart pressures with PASP of 45-50 from recent echocardiogram on January 15 2024. Will discuss with cardiology regarding inotropic support though his maps have been greater than 65 consistently. Wonder if he may benefit from the same. Discussed case with cardiology nurse practitioner today. Cardiology to decide regarding further angiogram. Previously known to have LCx lesion that was not amenable to intervention. Renal consult for worsening kidney function poor urine output, concerned that patient may end up needing dialysis if does not diurese adequately. Additionally if angiogram is being planned, with risk of YOSELIN, may need HD. Discussed this frankly with the patient. States that he needs to think a little bit more about whether or not he would want dialysis in the situation. Attestations 2 Medical Necessity Statement*: Continuing amiodarone infusion for A-fib, worsening liver and kidney functions, concern for cardiogenic shock with developing organ failure, poor urine output, may need dialysis. Consult nephrology. Continuing IV diuresis. Further plans regarding angiogram to be discussed with cardiology. Coding Level of Care Code Acute Code for Chg Fwd High MDM includes number and complexity of problems actively addressed during encounter, amount and/or complexity of data reviewed/ordered and described risk of complication, morbidity or mortality of management as documented Diagnoses Primary hypertension I10 Hypertension type: primary hypertension Ischemic cardiomyopathy I25.5 Systolic heart failure I50.20 Statin intolerance Z78.9 Non-ST elevation [place] (NSTEMI) I21.4 Atrial fibrillation with RVR I48.91 Chronic kidney disease, unspecified CKD stage N18.9 Chronic kidney disease stage: unspecified stage
[2024-01-29] MEDS: amiodarone 200 mg Tablet 400 MG PO (17:06)
[2024-01-29] MEDS: pantoprazole 40 mg SDV IVP (17:06)
--- NOTE | 2024-01-29 17:25 | PC.NURSE ---
no urine this shift, Dr. Blancas notified, HCP to consult nephrology
--- NOTE | 2024-01-29 17:36 | P.CONIM_ITS ---
Providers/Reason For Consult 2 Consulting Physician/Specialty*: Dewey Snider MD/telemetry nephrology Reason for Consult*: Acute on chronic renal failure Requesting Physician: Dulce Blancas MD Attending Physician: Dulce Blancas MD Primary Care Provider: Darryl Victor History of Present Illness History of Present Illness Oskar Varner is a 78 year old male history of coronary artery disease, thoracic aortic aneurysm patient had a recent non-ST elevation NV went to the [facility] on January 15, 2024 angiogram was attempted however was not successful in opening up left circumflex lesion patient was therefore treated medically with Lovenox aspirin and Plavix he is intolerant of statins and was being evaluated for repatha. The patient was found to have an EF of 25%. He continued to have chest discomfort was thought to be pericarditis he required IV fluids for blood pressure and kidney parameters the patient had to have his HARMONY inhibitor was discontinued due to hypertension the patient was discharged home on Eliquis Plavix digoxin Lasix metoprolol. The patient was also in A-fib. The patient has CKD his baseline creatinine is been around 1.5 to 1.9 mg/dL recently. Based on blood pressure and volume status. The patient was discharged on January 18, 2024 and presented back to our emergency room yesterday January 28, 2024 with shortness of breath and chest pain chest discomfort and was found to be in A-fib with rapid ventricular response rate, Dr. Manuel of cardiology saw the patient and was concerned for stuttering non-ST elevation NV and started him on IV diuretics, the patient converted to normal sinus rhythm today heart rate is controlled however he is more short of breath. Patient's urine output has been poor diuretics have been increased, creatinine pillo from 1.5 to 2.4 mg/dL and renal was asked to see the patient Review of Systems 2 Narrative: Edema, dyspnea on exertion decreased urine output chest pain shortness of breath palpitations nausea, headaches constipation Medications/Allergies Home Medications Medication Instructions Recorded Confirmed Last Taken Type levothyroxine 150 mcg capsule 150 mcg PO DAILY 05/13/19 01/28/24 01/28/24 History Co Q-10 100 mg PO DAILY 06/08/20 01/28/24 01/28/24 History Triple Magnesium Complex 400 mg PO DAILY 06/08/20 01/28/24 01/28/24 History beetroot 4,000 mg PO BID 10/06/21 11/13/24 11/13/24 History testosterone cypionate 200 mg/mL 200 mg SUBCUT Q21D 03/19/21 01/28/24 10/21/21 08:00 History intramuscular oil green lipped mussel 500 mg PO BID 06/22/21 01/28/24 01/28/24 History omeprazole 20 mg capsule,delayed 20 mg PO DAILY #90 caps 12/10/21 01/28/24 01/28/24 Rx release nitroglycerin 0.4 mg sublingual 0.4 mg sublingual Q5M PRN chest 08/02/22 01/28/24 01/14/24 Rx tablet (Nitrostat) pain #25 tabs potassium citrate 99 mg capsule 99 mg PO BID 12/13/22 01/28/24 01/28/24 History Bifidobacterium infantis 4 mg 1,500 mmu cells PO DAILY 01/15/24 01/28/24 01/28/24 History capsule (Align) acetylcarnitine 500 mg capsule 500 mg PO DAILY 01/15/24 01/28/24 01/28/24 History amino acids (Amino Acid capsule) 1 cap PO BID 01/15/24 01/28/24 01/28/24 History cholecalciferol (vitamin D3) 50 50 mcg PO DAILY 01/15/24 01/28/24 01/28/24 History mcg (2,000 unit) tablet (Vitamin D3) lubiprostone 8 mcg capsule 8 mcg PO BID 01/15/24 01/28/24 01/28/24 History vitamin B complex 1 tab PO DAILY 01/15/24 01/28/24 01/28/24 History zinc sulfate 50 mg zinc (220 mg) 50 mg PO DAILY 01/15/24 01/28/24 01/28/24 History tablet clopidogrel 75 mg tablet 75 mg PO DAILY 30 days #30 tabs 01/17/24 01/28/24 01/28/24 Rx apixaban 5 mg tablet (Eliquis) 5 mg PO BID@0900,2100 30 days #60 01/18/24 01/28/24 01/28/24 Rx tabs digoxin 125 mcg (0.125 mg) tablet 125 mcg PO DAILY 30 days #30 tabs 01/18/24 01/28/24 01/28/24 Rx metoprolol succinate 25 mg 25 mg PO DAILY 30 days #30 tabs 01/18/24 01/28/24 01/28/24 Rx tablet,extended release 24 hr amlodipine 2.5 mg tablet 2.5 mg PO DAILY 01/28/24 01/28/24 01/28/24 History furosemide 40 mg tablet 40 mg PO DAILY 01/28/24 01/28/24 01/28/24 History Allergies Allergy/AdvReac Type Severity Reaction Status Date / Time [id number]-[id number] Reductase Allergy Unknown Unknown Verified 12/23/23 12:30 Inhibitor Current Medications Generic Name Dose Route Start Last Admin Trade Name Freq PRN Reason Stop Dose Admin Amiodarone HCl 400 mg 01/29/24 18:00 01/29/24 17:06 Amiodarone 200 Mg Tablet PO 400 mg BID ABDON Administration Aspirin 81 mg 01/29/24 09:00 01/29/24 08:56 Aspirin 81 Mg Ec Tablet PO 81 mg DAILY ABDON Administration Clopidogrel Bisulfate 75 mg 01/29/24 09:00 01/29/24 08:56 Clopidogrel 75 Mg Tablet PO 75 mg DAILY ABDON Administration Furosemide 40 mg 01/29/24 13:00 01/29/24 12:54 Furosemide 10 Mg/Ml Sdv 4ml IVP 40 mg TID ABDON Administration Heparin Sodium (Porcine) 0 unit 01/28/24 16:05 01/29/24 01:35 Heparin 5,000 Unit/Ml Inj 1 Ml IVP 4,800 unit PRN PRN Administration Heparin Weight Based Protocol -Subsequent Bolus Protocol Heparin Sodium/Sodium Chloride 25,000 unit in 500 mls @ 0 mls/hr 01/28/24 16:15 01/29/24 14:26 Heparin Drip IV 14.04 unit/kg/hr CONT ABDON 27 mls/hr Titration Protocol Per Protocol Levothyroxine Sodium 150 mcg 01/29/24 09:00 01/29/24 08:56 Levothyroxine 150 Mcg Tablet PO 150 mcg DAILY ABDON Administration Metoprolol Succinate 25 mg 01/29/24 09:00 01/29/24 08:56 Metoprolol Succinate Er (24 Hr) 25 Mg Tablet PO 25 mg DAILY ABDON Administration Ondansetron HCl 4 mg 01/28/24 16:08 01/29/24 07:36 Ondansetron 2 Mg/Ml Sdv 2 Ml IVP 4 mg Q8H PRN Administration vomiting, or N/V if npo Pantoprazole Sodium 40 mg 01/28/24 16:30 01/29/24 17:06 Pantoprazole 40 Mg Sdv IVP 40 mg Q24H ABDON Administration PFSH Acute 2 PFSH: Medical History Hiatal hernia PAD (peripheral artery disease) Chest pain Thoracic ascending aortic aneurysm Ischemic cardiomyopathy Anterior wall myocardial infarction Statin intolerance Carotid bruit Erectile dysfunction GERD (gastroesophageal reflux disease) Dyslipidemia ASHD (arteriosclerotic heart disease) Surgical History History of heart artery stent Family History Mother , AGE 73 Congestive heart failure (CHF) Other Diabetes Hypertension Social History Smoking and tobacco/nicotine status: never used tobacco/nicotine Alcohol intake: current Alcohol intake frequency: 0-2 Drinks per Day Alcohol type: wine Substance/Drug Use: never Marital status: service: No Current occupational status: retired Vitals/I&O/Wt Last Vital Signs Temp 97.5 F L 01/29/24 04:48 Pulse 75 01/29/24 16:00 Resp 16 01/29/24 16:00 BP 115/85 01/29/24 16:00 Pulse Ox 98 01/29/24 16:00 O2 Del Method Nasal Cannula 01/29/24 10:34 O2 Flow Rate 2 01/29/24 10:34 01/29/24 01/29/24 01/29/24 06:59 14:59 22:59 Intake Total 306.2 / 665.6 310.75 / 310.75 Output Total 100 / 200 Balance 206.2 / 465.6 310.75 / 310.75 Weight last 48 hrs Weight 96.298 kg Weight 97.795 kg Weight 96.162 kg Physical Exam 2 Narrative: Obese man in bed short of breath vital signs noted and stable. HEENT normocephalic atraumatic. Neck is supple Lungs dull bases. Heart regular systolic murmur. Abdomen is soft positive bowel sounds. Extremities positive edema. Neuro awake alert and oriented. Urinary Catheter Management: Oliva: Cath Placed During This Visit: yes Urinary Catheter Date of Insertion: 01/29/24 Urinary Catheter Time of Insertion: 15:19 Data 01/29/24 04:45 01/29/24 04:45 A&P Assessment and plan (1) Acute kidney injury superimposed on CKD: Patient is a 78-year-old gentleman history of CAD recent cardiac catheterization on January 14, 2024 which was positive for a left circumflex lesion not amenable to intervention. Patient has heart failure reduced EF of 30%. Patient was admitted yesterday with chest pain shortness of breath palpitations A-fib with RVR and hypotension. 1. Chronic kidney disease. Baseline creatinine for the last year and a half appears to be 1.4 to 1.5 mg/dL. Etiology could be cardiorenal syndrome versus others will get a renal ultrasound with renal artery duplex and send urine studies. 2. Acute kidney injury in this patient differential diagnosis could be embolic disease versus ATN versus prerenal versus cardiorenal syndrome versus others. Evaluate with renal ultrasound and urine studies. 3. Hyponatremia check urine electrolytes. 4. Metabolic acidosis repeat chemistries at this time currently the patient has an anion gap of 23 which is new overnight. Will check ABG check lactate repeat chemistries, Check repeat transaminases. Vital signs are stable now. However I am worried that the patient may be in shock noticing new metabolic acidosis, new acute kidney injury new increased LFTs. 5. Non-ST elevation [place] At this time we will discuss with the primary maximizing cardiac output. Hopefully renal function and liver function may be improving his blood pressure is now improved with sinus rhythm. If not I am concerned that patient may be developing multiorgan failure likely from non-ST elevation NV in the setting of heart failure reduced EF. I discussed with the patient and his family that he may need temporary dialysis to consent to it as needed. The patient was seen and examined with the aid of A/V equipment and his nurse examined the patient. Case discussed in detail with Dr.Kathuria Weiss See above. Consult Attestations 2 Medical Necessity Statement: Heart failure reduced EF, oliguric acute kidney injury, increased LFTs, recent non-ST elevation NV with positive troponins Time Spent in Patient Care: Greater than 35 minutes (>than 50% of time spent in counselling and/or direct pt care on unit) . Coding Level of Care Code Acute Code for Chg Fwd Diagnoses Acute kidney injury superimposed on CKD N17.9; N18.9
[2024-01-29 17:46] LABS: Partial Thromboplastin Time 135.2 SECONDS (23.9-36.7)
--- NOTE | 2024-01-29 17:50 | US_ITS ---
WS: [id number] RENAL ULTRASOUND HISTORY: ana COMPARISON: None available. TECHNIQUE: 2-D and color Doppler imaging of the kidney submitted. Right kidney: 11.4 cm x 5.2 cm x 5.2 cm. Cortex: 1.7 cm Normal sized kidney with no obstruction. Cortical cyst from the mid kidney measures 1.3 cm. No solid mass. Left kidney: 10.6 cm x 5.6 cm x 5.4 cm. Cortex: 1.2 cm Normal size kidney with no obstruction. Cortical cyst mid kidney 1.3 cm. No solid mass. Aorta: Not imaged. Urinary Bladder: Nondistended. Oliva catheter is noted. US/US renal BI* [id number] IMPRESSION: 1. No renal atrophy or obstruction. 2. Small bilateral simple renal cysts.
[2024-01-29 18:08] LABS: ABG PCO2 25.3 mmHg (35-45); ABG PH Result 7.25 (7.35-7.45); Alveolar-Arterial Oxygen Gradi 8.2 mmHg (5-10); Arterial Blood Gas Hematocrit 44.3 % (42-52); Base Excess ABG -14.5 mmol/L (-2.0-2.0); Blood Gas Allen Test Pos; Blood Gas Operator Identificat GD; Blood Gas Sample Site Radial, right; Blood Gas Sample Type Arterial; Carboxyhemoglobin 0.4 %THgb (0.4-20.1); HGB O2 Sat 95.2 % (95-100); Ionized Calcium Level - ABG 1.1 mmol/L (1.1-1.4); Methemoglobin 1.2 % (0.4-1.5); Oxygen Device NC; Oxygen Saturation ABG 96.8; PO2 FiO2 Ratio Arterial Blood 367; Potassium Level - ABG 5.6 mmol/L (3.5-5.0); Total Hemoglobin 14.5 g/dL (14-18)
--- NOTE | 2024-01-29 18:08 | US_ITS ---
WS: [id number] RIGHT UPPER QUADRANT ULTRASOUND HISTORY: transaminitis COMPARISON: None available. Liver: 17.5 cm in length. Poorly visualized liver. The entire liver is not well visualized. Portion o f the liver visualized is unremarkable. There is a small cyst towards the diaphragmatic surface measu ring 1.4 cm. Portal Vein: Mildly pulsatile hepatopetal flow. Gallbladder: Normally distended with cholelithiasis. 1.6 cm stone within the gallbladder lumen. No Mu rphy sign. Gallbladder wall is top normal size but no pericholecystic fluid. CBD: 0.4 cm Pancreas: Completely obscured by bowel gas. Right kidney: Evaluated on a dedicated renal ultrasound. Aorta and IVC: Unremarkable abdominal aorta and IVC. No ascites. Small RIGHT pleural effusion. US/US liver [id number] IMPRESSION: 1. Cholelithiasis without evidence for Álvarez's sign or acute cholecystitis. 2. No bile duct dilatation. 3. Technically difficult RIGHT upper quadrant ultrasound. 4. Small RIGHT pleural effusion.
[2024-01-29] MEDS: sodium bicarbonate 150 MEQ in dextrose 5% 1,000 ML 100 MEQ IV (19:34)
[2024-01-29] MEDS: FUROsemide 100 MG in sodium chloride 0.9% 40 ML 10 MG IV (19:35)
[2024-01-29 19:50] LABS: Albumin Level 3.5 g/dL (3.5-5.2); Alkaline Phosphatase 99 U/L (40-130); Anion Gap 31.1 (5-19); Blood Urea Nitrogen 51 mg/dL (8-23); Calcium 8.3 mg/dL (8.5-10.5); Carbon Dioxide 15 mmol/L (22-29); Chloride 94 mmol/L (98-107); Creatine Phosphokinase 215 U/L (39-308); Creatinine Clr Calc Pharmacy 18.9687; Globulin 2.9 g/dL (1.3-4.6); Glucose 142 mg/dL (65-115); Magnesium 2.4 mg/dL (1.7-2.3); Osmolality Calculated 294 mOsm/kg (285-295); Potassium 6.1 mmol/L (3.5-5.1); Sodium 134 mmol/L (136-145); Total Bilirubin 0.9 mg/dL (0.15-1.2); Total Protein 6.4 g/dL (6.6-8.7)
[2024-01-29 19:59] LABS: Partial Thromboplastin Time 135.9 SECONDS (23.9-36.7)
[2024-01-29 20:02] LABS: Alanine Aminotransferase 2445 U/L (0-41)
[2024-01-29 20:09] LABS: Aspartate Amino Transferase 3022 U/L (0-40); Phosphorus 8.9 mg/dL (2.5-4.5)
[2024-01-29 20:10] LABS: Lactate (Lactic Acid level) 7.4 mmol/L (0.5-2.2)
[2024-01-29 20:13] LABS: Uric Acid 11.3 mg/dL (3.4-7.0)
[2024-01-29 20:53] LABS: Bilirubin Urine 1+ (Negative); Blood Urine 3+ (Negative); Glucose Urine UA Negative (Normal); Ketones Urine Trace (Negative); Leukocyte Esterase Urine 1+ (Negative); Nitrate Urine Negative (Negative); Protein Urine 1+ (Negative); Specific Gravity, Urine 1.023 (1.005-1.030); Urine Appearance Turbid (CLEAR); Urine Color Dark Yellow (Yellow)
[2024-01-29 20:55] LABS: Bacteria Urine 1+ /hpf; Squamous Epithelial Cell Urine 0-5 /hpf (0-5); WBC Urine 21-50 /hpf (0-5)
[2024-01-29 21:12] LABS: Creatinine Urine, Random 141 mg/dL (39-259); Microalbumin Random Urine 10 ug/dL (0-20); Potassium, Radom Urine 74 mmol/L; Urine Creatinine 146 mg/dL (39-259)
[2024-01-29 21:13] LABS: Microalbum Creatinine Ratio Ur 71 mg/dL (0-20); Urine Random Chloride 11 mmol/L
[2024-01-29 21:15] LABS: Complement C3 113 mg/dL (90-180); Hepatitis C Virus Antibody Non-Reactive (Nonreactive)
[2024-01-29 21:19] LABS: Add Urine Culture? Yes
[2024-01-29 21:24] LABS: Urine Protein Random 60 mg/dL; Urine Random Sodium 10 mmol/L
[2024-01-29] MEDS: FUROsemide 100 MG in sodium chloride 0.9% 40 ML 40 MG IV ×2 (22:03→23:15)
--- NOTE | 2024-01-29 22:42 | PC.NURSE ---
Output: Patient has only had 30 mls of urine out into Oliva bag. DR. Guzman notified that patient hasn't had any output since starting the Lasix drip. Order received for metolazone 5mg PO BID and continue Lasix drip.
[2024-01-29] MEDS: metOLazone 5 MG Tablet PO (23:35)
--- NOTE | 2024-01-29 23:51 | P.PN_ITS ---
Vitals/I&O/Wt Last Vital Signs Temp 98.0 F 01/29/24 20:00 Pulse 65 01/29/24 23:00 Resp 30 H 01/29/24 23:00 BP 102/72 01/29/24 23:00 Pulse Ox 92 01/29/24 23:00 O2 Del Method Nasal Cannula 01/29/24 10:34 O2 Flow Rate 2 01/29/24 10:34 01/29/24 01/29/24 01/30/24 14:59 22:59 06:59 Intake Total 310.75 / 310.75 361.5 / 672.25 48 / 720.25 Output Total 105 / 105 Balance 310.75 / 310.75 256.5 / 567.25 48 / 615.25 Weight last 48 hrs Weight 96.298 kg Weight 97.795 kg Weight 96.162 kg Physical Exam 2 Urinary Catheter Management: Oliva: Cath Placed During This Visit: yes Reason for Continuing Indwelling Catheter: Accurate Measurement of Urinary Output in Critically Ill Patients Urinary Catheter Date of Insertion: 01/29/24 Urinary Catheter Time of Insertion: 15:19 Data 01/29/24 04:45 01/29/24 18:52 A&P Assessment and plan (1) JOHNNY (acute kidney injury): cardiogenbic shock- multiorgan failure. rx medically tonight- plan dialysis in morning. surgeon called for line Plan worsening acidosis, hyperkalemia, lactate rising, inc LFTs- likely from cardiogenic shock. give bicarb overnight, repeat labs, rx medically. surgery called for access for am dialysis Attestations 2 Medical Necessity Statement*: johnny Coding Level of Care Code Acute Code for [facility] Diagnoses JOHNNY (acute kidney injury) N17.9
[2024-01-30] VITALS (33 sets, daily range): BP systolic 85–133; BP diastolic 56–89; PULSE 62–74; RESP 12–35; TEMP 36.4–36.5; O2SAT 89–100
[2024-01-30 00:15] LABS: Glucose Point of Care 166 mg/dL (70-110)
[2024-01-30 00:26] LABS: Platelet Count 253 10^3/cmm (157-399)
[2024-01-30] MEDS: lactated ringers 500 ML 999 ML IV (00:30)
[2024-01-30] MEDS: calcium gluconate 0.9% NaCL 1 GM/50 ML PREMIX IV (00:30)
[2024-01-30] MEDS: dextrose 10% 250 ML 999 ML IV (00:31)
[2024-01-30] MEDS: sodium polystyrene sulfonate 15 gm/60 mL Btl 30 GM PO (00:31)
[2024-01-30 00:33] LABS: Albumin Level 3.4 g/dL (3.5-5.2); Alkaline Phosphatase 90 U/L (40-130); Anion Gap 27.8 (5-19); Blood Urea Nitrogen 54 mg/dL (8-23); Calcium 7.6 mg/dL (8.5-10.5); Carbon Dioxide 18 mmol/L (22-29); Chloride 91 mmol/L (98-107); Creatinine Clr Calc Pharmacy 18.4823; Globulin 2.9 g/dL (1.3-4.6); Glucose 185 mg/dL (65-115); Osmolality Calculated 292 mOsm/kg (285-295); Potassium 5.8 mmol/L (3.5-5.1); Sodium 131 mmol/L (136-145); Total Bilirubin 0.9 mg/dL (0.15-1.2); Total Protein 6.3 g/dL (6.6-8.7)
[2024-01-30 00:37] LABS: Lactate (Lactic Acid level) 6.1 mmol/L (0.5-2.2)
[2024-01-30 00:38] LABS: Partial Thromboplastin Time 85.5 SECONDS (23.9-36.7)
[2024-01-30 00:46] LABS: Alanine Aminotransferase 3062 U/L (0-41); Aspartate Amino Transferase 3660 U/L (0-40)
[2024-01-30] MEDS: FUROsemide 100 MG in sodium chloride 0.9% 40 ML 40 MG IV ×4 (01:03→06:15)
[2024-01-30] MEDS: insulin regular-human 10 UNIT in SYRINGE 1 EACH 100 UNIT IVP (01:09)
[2024-01-30] MEDS: ondansetron 2 mg/ML SDV 2 mL 4 MG IVP (01:21)
--- NOTE | 2024-01-30 01:36 | PC.NURSE ---
Dr. Bocanegra called and was updated on patient and discussed plan for the night. New orders received Stat labs were drawn and this nurse called Dr. Bocanegra to update him on new labs.
[2024-01-30] MEDS: sodium bicarbonate 150 MEQ in dextrose 5% 1,000 ML 100 MEQ IV (07:46)
[2024-01-30] MEDS: FUROsemide 100 MG in sodium chloride 0.9% 40 ML 30 MG IV (07:54)
--- NOTE | 2024-01-30 07:57 | PC.NURSE ---
Dr. Gold came to bedside and said dialysis procedure cant be until 1400 due to heparin drip running, no time was given to nursing staff for procedure start time and time to hold heparin drip
--- NOTE | 2024-01-30 07:59 | PM.PN ---
Subjective Subjective: Patient remained stable vital louise overnight. He is not requiring much of oxygen today. He did not have any output despite of using IV furosemide drip and metolazone. Creatinine and potassium worsens. Appeared to be in acute kidney injury and worsening of liver function. Bladder scan was performed this morning which did not reveal any significant residual. Medications: Reviewed: Yes Vitals/I&O/Wt Last Vital Signs Temp 97.6 F 01/30/24 05:21 Pulse 67 01/30/24 05:35 Resp 16 01/30/24 05:00 BP 133/84 01/30/24 05:00 Pulse Ox 92 01/30/24 05:00 O2 Del Method Nasal Cannula 01/29/24 10:34 O2 Flow Rate 2 01/29/24 10:34 01/29/24 01/30/24 01/30/24 22:59 06:59 14:59 Intake Total 361.5 / 672.25 1174.45 / 1846.70 1200 / 1200 Output Total 105 / 105 50 / 155 Balance 256.5 / 567.25 1124.45 / 1691.70 1200 / 1200 Weight last 48 hrs Weight 215 lb 9.6 oz Weight 212 lb 4.8 oz Weight 215 lb 9.6 oz Weight 212 lb Physical Exam Const: OTHER: GENERAL: Patient is alert, awake and oriented x3. HEART: Regular S1 and S2. No murmur, rub or gallop. LUNGS: Decreased breath sounds but no crackles now bilaterally. CENTRAL NERVOUS SYSTEM: Grossly nonfocal. EXTREMITIES: Lower extremities with 2+ bilaterally. Urinary Catheter Management: Oliva: Cath Placed During This Visit: yes Reason for Continuing Indwelling Catheter: Accurate Measurement of Urinary Output in Critically Ill Patients Urinary Catheter Date of Insertion: 01/29/24 Urinary Catheter Time of Insertion: 15:19 Data 01/30/24 00:09 01/30/24 00:09 A&P Assessment and plan (1) Chest pain: Patient has markedly elevated persistent troponin T. He may have a combination of NSTEMI and CHF overload. It is not clear whether he he is occluding the other vessels at this time or not. EKG has no significant changes. If he has ongoing recurrence of chest pain, may require repeat angiogram. At this time, he is fluid volume overloaded. Will need to be euvolemic prior to intervention. He does have a possible proximal LAD lesion that could be the culprit of his issues. Qualifiers: Chest pain type: unspecified Qualified Code(s): R07.9 - Chest pain, unspecified (2) Atrial fibrillation with RVR: Remained in sinus rhythm. At this point I will hold amiodarone for possible liver transaminitis/injury. (3) CHF (congestive heart failure): Clinically he is breathing better has not had worsen, he his output is negligible. It appeared to me that he has a complete renal shutdown. At this point discontinue IV diuretics along with oral. Will consult neurology for possible temporary dialysis which is on the card, patient agrees with it. Once he is dialyzed and stable electrolyte louise we will consider performing right and left heart cath and IFR of mid and distal LAD if appear to be in hemodynamically stable will proceed with PCI if indicated. Qualifiers: Heart failure chronicity: acute on chronic Heart failure type: combined systolic and diastolic Qualified Code(s): I50.43 - Acute on chronic combined systolic (congestive) and diastolic (congestive) heart failure (4) Hypertension: Remains stable Qualifiers: Hypertension type: primary hypertension Qualified Code(s): I10 - Essential (primary) hypertension (5) Chronic kidney disease: Will discuss with nephrology to consider possible temporary dialysis Qualifiers: Chronic kidney disease stage: unspecified stage Qualified Code(s): N18.9 - Chronic kidney disease, unspecified Plan As defined above Attestations Medical Necessity Statement*: Patient require continuation hospitalization for above defined care. Coding Level of Care Code Acute Code for [facility] Diagnoses Chest pain, unspecified type R07.9 Chest pain type: unspecified Atrial fibrillation with RVR I48.91 Acute on chronic combined systolic and diastolic congestive heart failure I50.43 Heart failure chronicity: acute on chronic Heart failure type: combined systolic and diastolic Primary hypertension I10 Hypertension type: primary hypertension Chronic kidney disease, unspecified CKD stage N18.9 Chronic kidney disease stage: unspecified stage
[2024-01-30 08:00] LABS: Basophils % 0.1 %; Hematocrit 39.2 % (37-53); Lymphocytes # 0.8 10^3/uL (0.8-4.8); Lymphocytes % 3.7 %; Mean Corpuscular HGB Conc 32.9 g/dL (30-55); Mean Corpuscular Hemoglobin 30.5 pg (27-33); Mean Corpuscular Volume 92.7 fl (82-101); Mean Platelet Volume 10.6 fL (7.4-10.4); Monocytes # 0.8 10^3/uL (0.2-0.9); Monocytes % 3.7 %; Neutrophils # 18.51 10^3/uL (1.8-7.7); Neutrophils % 91.4 %; Nucleated Red Blood Cells % 0.1 %; Platelet Count 179 10^3/cmm (157-399); Red Blood Count 4.23 10^6/uL (3.85-5.65); Red Cell Distribution Width 13.7 % (12.1-15.1); White Blood Count 20.28 10^3/uL (3.29-11.43)
[2024-01-30 08:24] LABS: Albumin Level 3.3 g/dL (3.5-5.2); Alkaline Phosphatase 90 U/L (40-130); Anion Gap 29.2 (5-19); Blood Urea Nitrogen 57 mg/dL (8-23); Calcium 7.5 mg/dL (8.5-10.5); Carbon Dioxide 17 mmol/L (22-29); Chloride 92 mmol/L (98-107); Creatinine Clr Calc Pharmacy 17.7045; Globulin 2.8 g/dL (1.3-4.6); Glucose 155 mg/dL (65-115); Osmolality Calculated 295 mOsm/kg (285-295); Partial Thromboplastin Time 50.7 SECONDS (23.9-36.7); Potassium 5.2 mmol/L (3.5-5.1); Sodium 133 mmol/L (136-145); Total Bilirubin 0.9 mg/dL (0.15-1.2); Total Protein 6.1 g/dL (6.6-8.7)
[2024-01-30 08:31] LABS: Phosphorus 8.5 mg/dL (2.5-4.5)
[2024-01-30 08:32] LABS: Lactate (Lactic Acid level) 5.8 mmol/L (0.5-2.2)
[2024-01-30 08:36] LABS: Alanine Aminotransferase 3173 U/L (0-41)
--- NOTE | 2024-01-30 08:37 | PM.PN ---
Subjective Subjective: UOP remains low , noted labs on 2l nc Medications: Reviewed: Yes Vitals/I&O/Wt Last Vital Signs Temp 97.6 F 01/30/24 05:21 Pulse 67 01/30/24 05:35 Resp 16 01/30/24 05:00 BP 133/84 01/30/24 05:00 Pulse Ox 92 01/30/24 05:00 O2 Del Method Nasal Cannula 01/29/24 10:34 O2 Flow Rate 2 01/29/24 10:34 01/29/24 01/30/24 01/30/24 22:59 06:59 14:59 Intake Total 361.5 / 672.25 1174.45 / 1846.70 1322.683 / 1322.683 Output Total 105 / 105 50 / 155 Balance 256.5 / 567.25 1124.45 / 1691.70 1322.683 / 1322.683 Weight last 48 hrs Weight 97.795 kg Weight 96.298 kg Weight 97.795 kg Weight 96.162 kg Physical Exam Const: OTHER: Patient is alert, awake .no distress Regular S1 and S2 Decreased breath sounds per report Lower extremities with 2+ edema Urinary Catheter Management: Oliva: Cath Placed During This Visit: yes Reason for Continuing Indwelling Catheter: Accurate Measurement of Urinary Output in Critically Ill Patients Urinary Catheter Date of Insertion: 01/29/24 Urinary Catheter Time of Insertion: 15:19 Data 01/30/24 07:05 01/30/24 07:05 A&P Assessment and plan (1) JOHNNY (acute kidney injury): Plan (1) Acute kidney injury superimposed on CKD: Patient is a 78-year-old gentleman history of CAD recent cardiac catheterization on January 14, 2024 which was positive for a left circumflex lesion not amenable to intervention. Patient has heart failure reduced EF of 30%. Patient was admitted yesterday with chest pain shortness of breath palpitations A-fib with RVR and hypotension. 1. Chronic kidney disease. Baseline creatinine for the last year and a half appears to be 1.4 to 1.5 mg/dL. Etiology could be cardiorenal syndrome versus others will get a renal ultrasound with renal artery duplex and send urine studies. 2. Acute kidney injury in this patient differential diagnosis could be embolic disease versus ATN versus prerenal versus cardiorenal syndrome versus others. Evaluate with renal ultrasound and urine studies. -Has metabolic acidosis and Hyperkalemia - plan for temporary HD catheter placement today and HD today 3. Hyponatremia , monitor 5. Non-ST elevation FL with cardiogenic shock , and shock liver I discussed with the patient and his family that he may need temporary dialysis to consent to it as needed. The patient was seen and examined with the aid of A/V equipment and his nurse examined the patient. Attestations Medical Necessity Statement*: per [place] Coding Level of Care Code Acute Code for [facility] Fwd Diagnoses JOHNNY (acute kidney injury) N17.9
[2024-01-30 08:38] LABS: Aspartate Amino Transferase 3503 U/L (0-40)
[2024-01-30 09:22] LABS: Hepatitis B Core AB, Total Non-Reactive (Nonreactive); Hepatitis B Surface AB < 3.5 (11.5-1000); Hepatitis B Surface Antigen Non-Reactive (Nonreactive)
[2024-01-30] MEDS: levothyroxine 150 mcg Tablet PO (09:57)
[2024-01-30] MEDS: aspirin 81 mg EC Tablet PO (09:57)
[2024-01-30] MEDS: metoprolol succinate ER (24 HR) 25 mg Tablet PO (09:57)
[2024-01-30] MEDS: clopidogrel 75 mg Tablet PO (09:57)
--- NOTE | 2024-01-30 10:37 | XR_ITS ---
WS: [id number] Portable AP semiupright chest, 01/30/2024 Clinical Data: assess for infiltrates Comparison: Portable chest, 01/28/2024 Findings: No nodules, masses or effusions are seen. The heart is enlarged. The pulmonary vascularity is not increased. No pneumonia or pneumothorax is seen. The aortic arch and descending thoracic aorta show tortuosity. Monitor leads are on the chest wall. XR/XR chest 1V portable [id number] Impression: Cardiomegaly and atherosclerosis.
--- NOTE | 2024-01-30 10:38 | P.PN_ITS ---
Subjective 2 Subjective: Patient states he feels the same. States he feels tired with minimal exertion. Oxygen requirement 2 L/min today. Continues to have persistent anasarca. Poor urine output, only 150 cc overnight. Plan for initiating dialysis today. Leukocytosis 20,000, kidney function worsening at 4.1, lactate 5.8, worsening LFTs AST ALT 3500, limited echocardiogram with further drop in EF to 13%, severe diffuse hypokinesia of the left ventricle, moderate to severe mitral valve regurgitation. Moderate to severe tricuspid valve regurgitation. PASP of 53. Overall clinical picture compatible with heart failure leading to multiorgan failure, poor perfusion state. Currently MAP is consistently above 65. Medications: Reviewed: Yes Vitals/I&O/Wt Last Vital Signs Temp 97.6 F 01/30/24 05:21 Pulse 66 01/30/24 09:00 Resp 14 01/30/24 09:00 BP 109/84 01/30/24 10:00 Pulse Ox 91 01/30/24 09:00 O2 Del Method Nasal Cannula 01/29/24 10:34 O2 Flow Rate 2 01/29/24 10:34 01/29/24 01/30/24 01/30/24 22:59 06:59 14:59 Intake Total 361.5 / 672.25 1174.45 / 1846.70 1322.683 / 1322.683 Output Total 105 / 105 50 / 155 Balance 256.5 / 567.25 1124.45 / 1691.70 1322.683 / 1322.683 Weight last 48 hrs Weight 97.795 kg Weight 96.298 kg Weight 97.795 kg Weight 96.162 kg Physical Exam 2 Narrative: General: Propped up in bed at 30 degrees, on 2 L/min supplemental O2. Not tachypneic at rest, however takes effort to have a full conversation. HEENT: PERRLA, pupils bilaterally equal and reactive, pallors not present Chest: Scattered crackles to auscultation bilaterally Abdomen: Soft, mildly distended Neuro: No focal deficits, moving all extremities, states he is extremely tired, falls asleep midsentence Extremities 3+ pitting edema bilaterally Urinary Catheter Management: Oliva: Cath Placed During This Visit: yes Reason for Continuing Indwelling Catheter: Accurate Measurement of Urinary Output in Critically Ill Patients Urinary Catheter Date of Insertion: 01/29/24 Urinary Catheter Time of Insertion: 15:19 Data 01/30/24 07:05 01/30/24 07:05 A&P Assessment and plan (1) Ischemic cardiomyopathy: (2) Systolic heart failure: (3) Non-ST elevation MA (NSTEMI): (4) Atrial fibrillation with RVR: (5) Chronic kidney disease: Qualifiers: Chronic kidney disease stage: unspecified stage Qualified Code(s): N 18.9 - Chronic kidney disease, unspecified (6) Metabolic acidosis: (7) Acute kidney failure: (8) Leukocytosis: (9) Cardiorenal syndrome: (10) Transaminitis: (11) Acute liver failure: Plan Non-STEMI No active chest pain Established coronary disease Start ACS protocol A-fib RVR currently on amiodarone drip which needs to be titrated current heart rate is around 80s with stable hemodynamics Systolic CHF exacerbation Continue diuresis Chronic kidney disease: Creatinine 1.5, monitor urine output correlate with creatinine Patient has statin intolerance Cardiology consulted Full code Patient wants to discuss goals of care with her family and let us know 01/29/2024 : Patient has been receiving IV diuresis with Lasix, however has had no urine output. No urge to urinate. Bladder scan without any significant retention. Oliva catheter placed for accurate output measurement. Minimal urine at placement. Labs show interval worsening. LFTs worse with AST ALT greater than thousand. Normal alkaline phosphatase and T. bili. Acute hepatitis screen negative. Kidney function worsened with creatinine at 2.4 today. Overall clinical picture consistent with cardiogenic shock with previously known EF of 25% with hypokinesia, mild hypokinesis of the inferior inferoseptal and mid basal segments. Elevated right heart pressures with PASP of 45-50 from recent echocardiogram on January 15 2024. Will discuss with cardiology regarding inotropic support though his maps have been greater than 65 consistently. Wonder if he may benefit from the same. Discussed case with cardiology nurse practitioner today. Cardiology to decide regarding further angiogram. Previously known to have LCx lesion that was not amenable to intervention. Renal consult for worsening kidney function poor urine output, concerned that patient may end up needing dialysis if does not diurese adequately. Additionally if angiogram is being planned, with risk of YOSELIN, may need HD. Discussed this frankly with the patient. States that he needs to think a little bit more about whether or not he would want dialysis in the situation. 01/30/2024. Patient states he continues to feel poorly.Leukocytosis 20,000, kidney function worsening at 4.1, lactate 5.8, worsening LFTs AST ALT 3500, limited echocardiogram with further drop in EF to 13%, severe diffuse hypokinesia of the left ventricle, moderate to severe mitral valve regurgitation. Moderate to severe tricuspid valve regurgitation. PASP of 53. Overall clinical picture compatible with heart failure leading to multiorgan failure, poor perfusion state. Worsening transaminitis may be related to hepatic congestion versus poor perfusion. Amiodarone has been discontinued per cardiology recommendation given worsening liver function. Liver ultrasound with cholelithiasis without evidence of Álvarez signs or any signs of acute cholecystitis. CBD 0.4 cm. Incidentally noted small right pleural effusion. Overall technically difficult right upper quadrant study. Patient continues to be hypervolemic with very poor urine output. Additionally developing uremia, metabolic acidosis, remains anuric, plan to start dialysis today. Patient will get temporary HD catheter this afternoon and start dialysis afterwards. Closely monitor blood pressure with initiation of dialysis. May need inotropic support if MAP is less than 65. Further plans for angiogram to be decided after initiation of dialysis and optimization of fluid status, correction of electrolyte abnormalities. Leukocytosis 20,000, fever related to multiple acute stressors, however will perform any infectious source evaluation. Check chest x-ray for interval development of any pneumonia. Oliva catheter was inserted yesterday. Urine analysis showing 1+ protein, 3+ blood, 1+ bilirubin, 21-50 WBCs, 1+ leukocyte Estrace negative nitrate. Supplemental 02 at 2lpm. Check blood cultures. Start piperacillin/tazobactam renally dosed empirically while undergoing infectious evaluation. Hearin drip on hold for 6 hrs pending HD catheter insertion. Care plan discussed with patient in detail. prognosis guarded Attestations 2 Medical Necessity Statement*: patient needs continued level of ICU care for multiorgan failure, need to initiate HD today Critical Care Time: The high probability of a clinically significant, sudden or life threatening deterioration of the patient's [cadiac, renal, respiratory] system(s) required my full and direct attention, intervention and personal management. The critical care time is as shown. This time is in addition to time spent performing any reported procedures but includes the following: [x] Data and vital sign review and interpretation [x] Patient assessment, examination and intervention [x] Documentation [x] Medication orders and management Critical Care Time (min): 60 Coding Level of Care Code Acute Code for [facility] Diagnoses Ischemic cardiomyopathy I25.5 Systolic heart failure I50.20 Non-ST elevation MA (NSTEMI) I21.4 Atrial fibrillation with RVR I48.91 Chronic kidney disease, unspecified CKD stage N18.9 Chronic kidney disease stage: unspecified stage Metabolic acidosis E87.20 Acute kidney failure N17.9 Leukocytosis D72.829 Cardiorenal syndrome I13.10 Transaminitis R74.01 Acute liver failure K72.00
[2024-01-30] MEDS: piperacillin-tazobactam 3.375 GM in sodium chloride 0.9% (plus) 50 ML IV ×2 (10:50→22:32)
--- NOTE | 2024-01-30 11:36 | PC.SOCIAL ---
IMM Updated Updated pt on IMM. No questions voiced. Provided pt a copy. Initialed, dated, & timed a copy & placed in chart.
--- NOTE | 2024-01-30 13:48 | P.CONIM_ITS ---
Providers/Reason For Consult 2 Consulting Physician/Specialty*: Dr. Félix Gold, DO/General Surgery Reason for Consult*: Request for hemodialysis catheter placement Attending Physician: Dulce Blancas MD Primary Care Provider: Darryl Victor History of Present Illness History of Present Illness Oskar Varner is a 78 year old male currently in the ICU, on a heparin drip, due to multiorgan failure secondary to cardiac failure. He also had an NSTEMI and A-fib with RVR. Nephrology requested temporary hemodialysis catheter placement. He denies any nausea emesis, abdominal pain. Review of Systems 2 General: Reports: 10 or more systems reviewed and unremarkable except in HPI and below Medications/Allergies Home Medications Medication Instructions Recorded Confirmed Last Taken Type levothyroxine 150 mcg capsule 150 mcg PO DAILY 05/13/19 01/28/24 01/28/24 History Co Q-10 100 mg PO DAILY 06/08/20 01/28/24 01/28/24 History Triple Magnesium Complex 400 mg PO DAILY 06/08/20 01/28/24 01/28/24 History beetroot 4,000 mg PO BID 12/20/20 01/28/24 01/28/24 History testosterone cypionate 200 mg/mL 200 mg SUBCUT Q21D 03/19/21 01/28/24 10/21/21 08:00 History intramuscular oil green lipped mussel 500 mg PO BID 06/22/21 01/28/24 01/28/24 History omeprazole 20 mg capsule,delayed 20 mg PO DAILY #90 caps 12/10/21 01/28/24 01/28/24 Rx release nitroglycerin 0.4 mg sublingual 0.4 mg sublingual Q5M PRN chest 08/02/22 01/28/24 01/14/24 Rx tablet (Nitrostat) pain #25 tabs potassium citrate 99 mg capsule 99 mg PO BID 12/13/22 01/28/24 01/28/24 History Bifidobacterium infantis 4 mg 1,500 mmu cells PO DAILY 01/15/24 01/28/24 01/28/24 History capsule (Align) acetylcarnitine 500 mg capsule 500 mg PO DAILY 01/15/24 01/28/24 01/28/24 History amino acids (Amino Acid capsule) 1 cap PO BID 01/15/24 01/28/24 01/28/24 History cholecalciferol (vitamin D3) 50 50 mcg PO DAILY 01/15/24 01/28/24 01/28/24 History mcg (2,000 unit) tablet (Vitamin D3) lubiprostone 8 mcg capsule 8 mcg PO BID 01/15/24 01/28/24 01/28/24 History vitamin B complex 1 tab PO DAILY 01/15/24 01/28/24 01/28/24 History zinc sulfate 50 mg zinc (220 mg) 50 mg PO DAILY 01/15/24 01/28/24 01/28/24 History tablet clopidogrel 75 mg tablet 75 mg PO DAILY 30 days #30 tabs 01/17/24 01/28/24 01/28/24 Rx apixaban 5 mg tablet (Eliquis) 5 mg PO BID@0900,2100 30 days #60 01/18/24 01/28/24 01/28/24 Rx tabs digoxin 125 mcg (0.125 mg) tablet 125 mcg PO DAILY 30 days #30 tabs 01/18/24 01/28/24 01/28/24 Rx metoprolol succinate 25 mg 25 mg PO DAILY 30 days #30 tabs 01/18/24 01/28/24 01/28/24 Rx tablet,extended release 24 hr amlodipine 2.5 mg tablet 2.5 mg PO DAILY 01/28/24 01/28/24 01/28/24 History furosemide 40 mg tablet 40 mg PO DAILY 01/28/24 01/28/24 01/28/24 History Allergies Allergy/AdvReac Type Severity Reaction Status Date / Time Ogozhlr-[id number]-BnG Reductase Allergy Unknown Unknown Verified 12/23/23 12:30 Inhibitor Current Medications Generic Name Dose Route Start Last Admin Trade Name Freq PRN Reason Stop Dose Admin Aspirin 81 mg 01/29/24 09:00 01/30/24 09:57 Aspirin 81 Mg Ec Tablet PO 81 mg DAILY ABDON Administration Clopidogrel Bisulfate 75 mg 01/29/24 09:00 01/30/24 09:57 Clopidogrel 75 Mg Tablet PO 75 mg DAILY ABDON Administration Heparin Sodium (Porcine) 0 unit 01/28/24 16:05 01/29/24 01:35 Heparin 5,000 Unit/Ml Inj 1 Ml IVP 4,800 unit PRN PRN Administration Heparin Weight Based Protocol -Subsequent Bolus Protocol Heparin Sodium/Sodium Chloride 25,000 unit in 500 mls @ 0 mls/hr 01/28/24 16:15 01/30/24 08:00 Heparin Drip IV 0 unit/kg/hr CONT ABDON 0 mls/hr Titration Protocol Per Protocol Sodium Bicarbonate 150 meq/ 1,150 mls @ 100 mls/hr 01/29/24 18:30 01/30/24 07:46 Dextrose IV 100 mls/hr .[id number] ABDON Administration Dextrose 250 mls @ 1,000 mls/hr 01/29/24 23:45 01/30/24 01:20 D10w IV Infused PRN PRN Infusion HYPOGLYCEMIA Piperacillin Sod/Tazobactam 50 mls @ 12.5 mls/hr 01/30/24 11:00 01/30/24 10:50 Sod 3.375 gm/ Sodium Chloride IV 12.5 mls/hr Q8H ABDON Administration Levothyroxine Sodium 150 mcg 01/29/24 09:00 01/30/24 09:57 Levothyroxine 150 Mcg Tablet PO 150 mcg DAILY ABDON Administration Metoprolol Succinate 25 mg 01/29/24 09:00 01/30/24 09:57 Metoprolol Succinate Er (24 Hr) 25 Mg Tablet PO 25 mg DAILY ABDON Administration Ondansetron HCl 4 mg 01/29/24 18:10 01/30/24 01:21 Ondansetron 2 Mg/Ml Sdv 2 Ml IVP 4 mg Q6H PRN Administration vomiting, or N/V if npo Pantoprazole Sodium 40 mg 01/28/24 16:30 01/29/24 17:06 Pantoprazole 40 Mg Sdv IVP 40 mg Q24H ABDON Administration PFSH Acute 2 PFSH: Medical History Hiatal hernia PAD (peripheral artery disease) Chest pain Thoracic ascending aortic aneurysm Ischemic cardiomyopathy Anterior wall myocardial infarction Statin intolerance Carotid bruit Erectile dysfunction GERD (gastroesophageal reflux disease) Dyslipidemia ASHD (arteriosclerotic heart disease) Surgical History History of heart artery stent Family History Mother , AGE 73 Congestive heart failure (CHF) Other Diabetes Hypertension Social History Smoking and tobacco/nicotine status: never used tobacco/nicotine Alcohol intake: current Alcohol intake frequency: 0-2 Drinks per Day Alcohol type: wine Substance/Drug Use: never Marital status: service: No Current occupational status: retired Vitals/I&O/Wt Last Vital Signs Temp 97.6 F 01/30/24 05:21 Pulse 64 01/30/24 11:00 Resp 17 01/30/24 11:00 BP 115/82 01/30/24 11:00 Pulse Ox 98 01/30/24 11:00 O2 Del Method Nasal Cannula 01/29/24 10:34 O2 Flow Rate 2 01/29/24 10:34 01/29/24 01/30/24 01/30/24 22:59 06:59 14:59 Intake Total 361.5 / 672.25 1174.45 / 1846.70 1322.683 / 1322.683 Output Total 105 / 105 50 / 155 Balance 256.5 / 567.25 1124.45 / 1691.70 1322.683 / 1322.683 Weight last 48 hrs Weight 215 lb 9.6 oz Weight 212 lb 4.8 oz Weight 215 lb 9.6 oz Weight 212 lb Physical Exam 2 Narrative: General : Patient is well developed , no acute distress, oriented x3 Head : Normal cephalic, a-traumatic. Ears : Pinnae and external canal are normal. Hearing is normal. Eyes : PERRLA, Sclera and injection are normal. No conjunctival discharge. Nose : Mucous membranes are without erythema. Throat : buccal mucosa is normal, gums are without significant recession or hypertrophy. Lungs : Equal chest rise bilaterally, no use of accessory muscles, trachea is midline. Cor : Rate and rhythm are normal. Abdomen : Soft, ND, NT, no g/r/m Extremities : No edema, no cyanosis or clubbing, dorsalis pedis pulses are present bilaterally, non-tender to palpation of calves. Upper extremities are normal bilaterally. Back : non-tender to palpation, no CVA tenderness. Neuro : CN II - XII intact, Upper and lower extremities have equal and full strength Urinary Catheter Management: Oliva: Cath Placed During This Visit: yes Reason for Continuing Indwelling Catheter: Accurate Measurement of Urinary Output in Critically Ill Patients Urinary Catheter Date of Insertion: 01/29/24 Urinary Catheter Time of Insertion: 15:19 Data 01/30/24 07:05 01/30/24 07:05 Micro: Microbiology 01/30/24 11:56 Blood Culture - Preliminary Blood SPECIMEN COLLECTED 01/30/24 12:00 Blood Culture - Preliminary Blood SPECIMEN COLLECTED A&P Assessment and plan (1) Acute kidney injury superimposed on CKD: Plan Patient had therapeutic anticoagulation, on a heparin drip, when I came to place the catheter this morning. I held the catheter for 6 hours and proceed with the procedure successfully. If necessary, heparin drip may be restarted in 2 hours Temporary hemodialysis catheter placement The risks and benefits of the procedure, including but not limited to, bleeding, infection, infection requiring catheter removal antibiotic therapy and repeat surgery, damage to surrounding structures, scar, numbness, pain, were explained to the patient. He/She is understanding of the risks and wishes to proceed. Coding Level of Care Code 95635 Diagnoses Acute kidney injury superimposed on CKD N17.9; N18.9
--- NOTE | 2024-01-30 13:48 | PC.NURSE ---
Dialysis line placed to R femoral per Dr. Gold
--- NOTE | 2024-01-30 13:52 | PM.DIACAT ---
Procedure Note: Procedure: Preoperative diagnosis: Acute renal failure requiring emergent dialysis Postoperative diagnosis: Same Procedure: Placement of Mahurkar catheter in the right femoral vein Surgeon: Dr. Félix Gold, DO Blood loss: 5 cc Anesthesia: Local Description of procedure: The patient's right groin was prepped and draped in a sterile manner. 5 mL of 1% lidocaine was infiltrated at the site of planned entry, an introducer needle was used to access the right femoral vein. Guidewire was passed through the introducer needle and the introducer needle was removed. Serial dilators were passed over the guidewire after the skin incision was extended using 11 blade and Mahurkar catheter was then passed over the guidewire and the guidewire was removed. The catheter was sutured to the skin using 2-0 Ethilon suture. Sterile dressings were applied. Coding Level of Care Code Acute Code for [facility]
[2024-01-30] MEDS: norepinephrine 4 MG/250 ML BAG 7.5 MG IV (15:28)
[2024-01-30] MEDS: pantoprazole 40 mg SDV IVP (15:35)
--- NOTE | 2024-01-30 15:46 | P.PN_ITS ---
Documented by User: Ghada Modi NP 01/30/24 15:51 Subjective 2 Subjective: Patient is doing okay today. He is sitting up in bed. He got up to the bedside commode without any difficulty. Lungs are clear. He still has edema. Creat. up to 4.1 today. Medications: Reviewed: Yes Vitals/I&O/Wt Last Vital Signs Temp 97.6 F 01/30/24 05:21 Pulse 63 01/30/24 14:00 Resp 19 H 01/30/24 13:00 BP 108/80 01/30/24 13:00 Pulse Ox 97 01/30/24 13:00 O2 Del Method Nasal Cannula 01/29/24 10:34 O2 Flow Rate 2 01/29/24 10:34 01/30/24 01/30/24 01/30/24 06:59 14:59 22:59 Intake Total 1174.45 / 1846.70 1322.683 / 1322.683 50 / 1372.683 Output Total 50 / 155 Balance 1124.45 / 1691.70 1322.683 / 1322.683 50 / 1372.683 Weight last 48 hrs Weight 215 lb 9.6 oz Weight 212 lb 4.8 oz Weight 215 lb 9.6 oz Physical Exam 2 Narrative: General: No apparent distress, healthy appearing Neck: No carotid bruit bilaterally Muskuloskeletal: Full ROM Respiratory: Normal respiratory effort, lungs clear throughout, no use of accessory muscles Cardio: No JVD, regular rate, regular rhythm, S1 S2 normal, no murmurs, peripheral pulses 2+ radial palpated bilaterally Extremities: Full ROM, normal, normal capillary refill, no cyanosis, 2+ pitting edema bilaterally Neuro: Alert and oriented x3 Psych: Affect normal, denies suicidal ideation, mental status grossly normal Skin: No rashes or lesions noted, no wounds Urinary Catheter Management: Oliva: Cath Placed During This Visit: yes Reason for Continuing Indwelling Catheter: Accurate Measurement of Urinary Output in Critically Ill Patients Urinary Catheter Date of Insertion: 01/29/24 Urinary Catheter Time of Insertion: 15:19 Data 01/30/24 07:05 01/30/24 07:05 Micro: Microbiology 01/30/24 11:56 Blood Culture - Preliminary Blood SPECIMEN COLLECTED 01/30/24 12:00 Blood Culture - Preliminary Blood SPECIMEN COLLECTED A&P Assessment and plan (1) Chest pain: Patient has markedly elevated persistent troponin T. He may have a combination of NSTEMI and CHF overload. It is not clear whether he he is occluding the other vessels at this time or not. EKG has no significant changes. If he has ongoing recurrence of chest pain, may require repeat angiogram. At this time, he is fluid volume overloaded. Will need to be euvolemic prior to intervention. He does have a possible proximal LAD lesion that could be the culprit of his issues. At this time, with his decreased kidney function, we will see how he does with dialysis. No indications for urgent heart cath at this time. Qualifiers: Chest pain type: unspecified Qualified Code(s): R07.9 - Chest pain, unspecified (2) Atrial fibrillation with RVR: Amiodarone D/C due to liver toxicity. (3) CHF (congestive heart failure): At this time, patient is not making much urine. He has edema, but overall, lungs are clear. Qualifiers: Heart failure chronicity: acute on chronic Heart failure type: combined systolic and diastolic Qualified Code(s): I50.43 - Acute on chronic combined systolic (congestive) and diastolic (congestive) heart failure (4) Hypertension: Well-controlled. Blood pressure soft at this time. Qualifiers: Hypertension type: primary hypertension Qualified Code(s): I10 - Essential (primary) hypertension (5) Chronic kidney disease: Dialysis today. Qualifiers: Chronic kidney disease stage: unspecified stage Qualified Code(s): N 18.9 - Chronic kidney disease, unspecified Plan Patient has pitting edema, orthopnea has improved, and lungs are clear. Continue Plavix, aspirin and heparin will be continued. Based on the clinical progress, further recommendations will be made. At this time, no urgent reasons for heart cath. Will continue to see how patient progresses after dialysis. Kidney function needs to be optimized prior to coronary intervention. Attestations 2 Medical Necessity Statement*: Patient require continuation hospitalization for above defined care. Coding Level of Care Code Acute Code for [facility] Diagnoses Chest pain, unspecified type R07.9 Chest pain type: unspecified Atrial fibrillation with RVR I48.91 Acute on chronic combined systolic and diastolic congestive heart failure I50.43 Heart failure chronicity: acute on chronic Heart failure type: combined systolic and diastolic Primary hypertension I10 Hypertension type: primary hypertension Chronic kidney disease, unspecified CKD stage N18.9 Chronic kidney disease stage: unspecified stage Documented by User: Bhavin Snider MD 01/30/24 18:44 Subjective 2 Subjective: Patient was evaluated and cared for in conjunction with an advanced practice practitioner. I personally examined the patient and reviewed the chart and all pertinent data including imaging, telemetry, and laboratory results. I discussed the patient in detail with the advanced practice practitioner. Please see their note for complete H&P testing result and agreed upon plan of care for the patient. Patient is doing okay today. He is sitting up in bed. He got up to the bedside commode without any difficulty. Lungs are clear. He still has edema. Creat. up to 4.1 today. Physical Exam 2 Urinary Catheter Management: Oliva: Cath Placed During This Visit: yes Data 01/30/24 07:05 01/30/24 07:05 A&P Assessment and plan (1) Chest pain: Patient is in volume overload status with underlying coronary artery disease in the face of renal failure troponin elevation may not relieve presented to acute coronary syndrome however given patient worsening situation severe LV dysfunction recurrent heart failure mid and distal LAD lesion upon examining prior angiogram may require further assessment through IFR/hemodynamics, since patient is not in persistent chest pain but because of fact there is no arrhythmia and he is in heart failure along with renal failure with electrolyte derangement with high lactate despite of reasonably good blood pressure with manage first removing fluid either through diuretics which we have not succeeded other option is temporary dialysis which the patient will be going for today, once euvolemic and electrolytes are balance will consider right and left heart cath. Qualifiers: Chest pain type: unspecified Qualified Code(s): R07.9 - Chest pain, unspecified (2) Atrial fibrillation with RVR: Amiodarone is on hold possible due to toxicity as suggested by increasing transaminitis (3) CHF (congestive heart failure): As defined above, discontinue diuretics since patient not making urine and acute care kidney failure will consider temporary dialysis as suggested by nephrology Qualifiers: Heart failure chronicity: acute on chronic Heart failure type: combined systolic and diastolic Qualified Code(s): I50.43 - Acute on chronic combined systolic (congestive) and diastolic (congestive) heart failure (4) Hypertension: Patient blood pressure is normotensive rather right occasion he drops of blood pressure Qualifiers: Hypertension type: primary hypertension Qualified Code(s): I10 - Essential (primary) hypertension (5) Chronic kidney disease: Qualifiers: Chronic kidney disease stage: unspecified stage Qualified Code(s): N 18.9 - Chronic kidney disease, unspecified Coding Level of Care Code Acute Code for [facility] Diagnoses Chest pain, unspecified type R07.9 Chest pain type: unspecified Atrial fibrillation with RVR I48.91 Acute on chronic combined systolic and diastolic congestive heart failure I50.43 Heart failure chronicity: acute on chronic Heart failure type: combined systolic and diastolic Primary hypertension I10 Hypertension type: primary hypertension Chronic kidney disease, unspecified CKD stage N18.9 Chronic kidney disease stage: unspecified stage
[2024-01-30] MEDS: heparin, porcine 1,000 unit/mL INJ 10 mL 10000 UNIT INTRACATH (18:32)
--- NOTE | 2024-01-30 19:21 | PC.NURSE ---
Levophed running at 12 upon arrival to shift at 1900, Mar changed to reflect this.
--- NOTE | 2024-01-30 19:50 | PC.HD ---
Initial dialysis treatment administered after right femoral dialysis cath placed today. Catheter positional with AP running high through most of treatment resulting in blood flow rate being reduced throughout treatment in spite of attempts at repositioning pt and manipulating and flushing catheter. Large clots to arterial and venous chambers of blood lines and moderately heavy streaking of dialyzer noted post treatment after blood returned. BP dropped to 85/59 when treatment started, albumin and levophed required to maintain SBP>100, pt remained asymptomatic and tolerated treatment fairly well.
[2024-01-30] MEDS: norepinephrine 4 MG/250 ML BAG 15 MG IV (21:07)
[2024-01-30] MEDS: heparin drip 25,000 UNIT/500 ML PREMIX 17 UNIT IV (22:31)
[2024-01-30 22:48] LABS: Partial Thromboplastin Time 54.5 SECONDS (23.9-36.7)
[2024-01-30] MEDS: heparin 5,000 unit/mL INJ 1 mL IVP (23:15)
[2024-01-31] VITALS (49 sets, daily range): BP systolic 89–123; BP diastolic 60–86; PULSE 58–69; RESP 14–30; TEMP 36.5–36.9; O2SAT 84–100
[2024-01-31 04:49] LABS: Basophils % 0.1 %; Hematocrit 39.2 % (37-53); Lymphocytes # 0.8 10^3/uL (0.8-4.8); Lymphocytes % 4.9 %; Mean Corpuscular HGB Conc 33.4 g/dL (30-55); Mean Corpuscular Hemoglobin 30.5 pg (27-33); Mean Corpuscular Volume 91.4 fl (82-101); Mean Platelet Volume 10.4 fL (7.4-10.4); Monocytes # 0.6 10^3/uL (0.2-0.9); Monocytes % 3.6 %; Neutrophils # 15.42 10^3/uL (1.8-7.7); Neutrophils % 90.1 %; Nucleated Red Blood Cells # 0.1 /100WBC; Nucleated Red Blood Cells % 0.5 %; Platelet Count 116 10^3/cmm (157-399); Red Blood Count 4.29 10^6/uL (3.85-5.65); Red Cell Distribution Width 13.7 % (12.1-15.1); White Blood Count 17.12 10^3/uL (3.29-11.43)
[2024-01-31 05:03] LABS: Partial Thromboplastin Time 51.5 SECONDS (23.9-36.7)
[2024-01-31 05:07] LABS: Lactate (Lactic Acid level) 2.2 mmol/L (0.5-2.2)
[2024-01-31 05:12] LABS: Albumin Level 3.3 g/dL (3.5-5.2); Alkaline Phosphatase 85 U/L (40-130); Anion Gap 25.5 (5-19); Blood Urea Nitrogen 62 mg/dL (8-23); Calcium 7.5 mg/dL (8.5-10.5); Carbon Dioxide 24 mmol/L (22-29); Chloride 94 mmol/L (98-107); Globulin 2.7 g/dL (1.3-4.6); Glucose 114 mg/dL (65-115); Magnesium 2.1 mg/dL (1.7-2.3); Osmolality Calculated 306 mOsm/kg (285-295); Potassium 4.5 mmol/L (3.5-5.1); Sodium 139 mmol/L (136-145); Total Bilirubin 0.9 mg/dL (0.15-1.2)
[2024-01-31] MEDS: heparin 5,000 unit/mL INJ 1 mL IVP (05:15)
[2024-01-31 05:16] LABS: Phosphorus 8.9 mg/dL (2.5-4.5)
[2024-01-31 05:24] LABS: Alanine Aminotransferase 2434 U/L (0-41)
[2024-01-31 05:25] LABS: Aspartate Amino Transferase 1469 U/L (0-40)
[2024-01-31] MEDS: aspirin 81 mg EC Tablet PO (08:34)
[2024-01-31] MEDS: levothyroxine 150 mcg Tablet PO (08:34)
[2024-01-31] MEDS: metoprolol succinate ER (24 HR) 25 mg Tablet PO (08:34)
[2024-01-31] MEDS: clopidogrel 75 mg Tablet PO (08:34)
--- NOTE | 2024-01-31 09:32 | P.PN_ITS ---
Subjective 2 Subjective: on 3L NC Medications: Reviewed: Yes Vitals/I&O/Wt Last Vital Signs Temp 97.8 F 01/31/24 08:00 Pulse 66 01/31/24 09:00 Resp 24 H 01/31/24 09:00 BP 112/77 01/31/24 09:00 Pulse Ox 99 01/31/24 09:00 O2 Del Method Nasal Cannula 01/31/24 09:00 O2 Flow Rate 3 01/31/24 09:00 01/30/24 01/31/24 01/31/24 22:59 06:59 14:59 Intake Total 1046.283 / 2368.966 253.15 / 2622.116 20 / 20 Output Total 2305 / 2305 400 / 2705 200 / 200 Balance -1258.717 / 63.966 -146.85 / -82.884 -180 / -180 Weight last 48 hrs Weight 97.296 kg Weight 97.5 kg Weight 97.795 kg Physical Exam 2 Const: OTHER: Patient is alert, awake .no distress Regular S1 and S2 Decreased breath sounds per report Lower extremities with 2+ edema Urinary Catheter Management: Oliva: Cath Placed During This Visit: yes Reason for Continuing Indwelling Catheter: Accurate Measurement of Urinary Output in Critically Ill Patients Urinary Catheter Date of Insertion: 01/29/24 Urinary Catheter Time of Insertion: 15:19 Data 01/31/24 04:38 01/31/24 04:38 Micro: Microbiology 01/30/24 11:56 Blood Culture - Preliminary Blood SPECIMEN COLLECTED 01/30/24 12:00 Blood Culture - Preliminary Blood SPECIMEN COLLECTED A&P Assessment and plan (1) JOHNNY (acute kidney injury): Plan (1) Acute kidney injury superimposed on CKD: Patient is a 78-year-old gentleman history of CAD recent cardiac catheterization on January 14, 2024 which was positive for a left circumflex lesion not amenable to intervention. Patient has heart failure reduced EF of 30%. Patient was admitted yesterday with chest pain shortness of breath palpitations A-fib with RVR and hypotension. 1. Chronic kidney disease. Baseline creatinine for the last year and a half appears to be 1.4 to 1.5 mg/dL. Etiology could be cardiorenal syndrome versus others will get a renal ultrasound with renal artery duplex and send urine studies. 2. Acute kidney injury in this patient differential diagnosis could be embolic disease versus ATN versus prerenal versus cardiorenal syndrome versus others. Evaluate with renal ultrasound and urine studies. -Has metabolic acidosis and Hyperkalemia - s/p temporary HD catheter placement and HD done 01/29, 3. Hyponatremia , monitor 5. Non-ST elevation IN with cardiogenic shock , and shock liver I discussed with the patient and his family that he may need temporary dialysis to consent to it as needed. The patient was seen and examined with the aid of A/V equipment and his nurse examined the patient. Attestations 2 Medical Necessity Statement*: per medicine Coding Level of Care Code Acute Code for [facility] Diagnoses JOHNNY (acute kidney injury) N17.9
[2024-01-31] MEDS: piperacillin-tazobactam 3.375 GM in sodium chloride 0.9% (plus) 50 ML IV ×2 (11:08→22:02)
[2024-01-31 11:46] LABS: Partial Thromboplastin Time 49.6 SECONDS (23.9-36.7)
--- NOTE | 2024-01-31 12:24 | PC.OT ---
OT orders received to evaluate and treat. OT attempted evaluation, pt. asleep and could not be aroused enough for pt. to even answer questions. OT evaluation to be attempted at a later day.
[2024-01-31 13:10] LABS: Glucose Point of Care 109 mg/dL (70-110)
--- NOTE | 2024-01-31 14:10 | PC.PT ---
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 Nursing also reports he has had a bit of a decline in mental status this afternoon with increased confusion and likely wouldn't be able to follow directions or commands right now. Hold PT evaluation today per nursing. Will attempt again at next available day.
--- NOTE | 2024-01-31 14:57 | P.PN_ITS ---
Subjective 2 Subjective: Patient feeling better after the dialysis. Potassium electrolytes liver function test all has improved he has started making some urine. Denies any chest pain. Medications: Reviewed: Yes Vitals/I&O/Wt Last Vital Signs Temp 97.8 F 01/31/24 08:00 Pulse 64 01/31/24 14:49 Resp 17 01/31/24 12:30 BP 108/74 01/31/24 12:30 Pulse Ox 96 01/31/24 12:30 O2 Del Method Nasal Cannula 01/31/24 12:30 O2 Flow Rate 2 01/31/24 10:47 01/30/24 01/31/24 01/31/24 22:59 06:59 14:59 Intake Total 1046.283 / 2368.966 253.15 / 2622.116 160 / 160 Output Total 2305 / 2305 400 / 2705 200 / 200 Balance -1258.717 / 63.966 -146.85 / -82.884 -40 / -40 Weight last 48 hrs Weight 214 lb 8 oz Weight 214 lb 15.211 oz Weight 215 lb 9.6 oz Physical Exam 2 Const: OTHER: GENERAL: Patient is alert, awake and oriented x3. HEART: Regular S1 and S2. No murmur, rub or gallop. LUNGS: Decreased breath sounds but no crackles now bilaterally. CENTRAL NERVOUS SYSTEM: Grossly nonfocal. EXTREMITIES: Lower extremities with 1+ bilaterally. Urinary Catheter Management: Oliva: Cath Placed During This Visit: yes Reason for Continuing Indwelling Catheter: Accurate Measurement of Urinary Output in Critically Ill Patients Urinary Catheter Date of Insertion: 01/29/24 Urinary Catheter Time of Insertion: 15:19 Data 01/31/24 04:38 01/31/24 04:38 Micro: Microbiology 01/30/24 11:56 Blood Culture - Preliminary Blood NEGATIVE TO DATE 01/30/24 12:00 Blood Culture - Preliminary Blood NEGATIVE TO DATE 01/29/24 20:40 Urine Culture - Preliminary Urine,Clean Catch Gram Negative Rods A&P Assessment and plan (1) Chest pain: Patient is in volume overload status with underlying coronary artery disease in the face of renal failure troponin elevation may not relieve presented to acute coronary syndrome however given patient worsening situation severe LV dysfunction recurrent heart failure mid and distal LAD lesion upon examining prior angiogram may require further assessment through IFR/hemodynamics, since patient is not in persistent chest pain but because of fact there is no arrhythmia and he is in heart failure along with renal failure with electrolyte derangement with high lactate despite of reasonably good blood pressure with manage first removing fluid either through diuretics which we have not succeeded other option is temporary dialysis which the patient will be going for today, once euvolemic and electrolytes are balance will consider right and left heart cath. On today's visit dated 01/31/2024 patient overall has improved after dialysis. At this point he appeared to be stable coronary artery disease perspective louise. Will continue to diurese and try to get him euvolemic as in decompensated state of heart failure with severely depressed left ventricular ejection fraction patient is high risk for PCI with higher left ventricular end-diastolic pressure, my plan is to take him to the [facility] on Friday for possible IFR of mid LAD and if significant to proceed with PCI. I have detailed discussion with the patient and the family they are in agreement. Continue aspirin statin and anticoagulation/antiplatelets. Qualifiers: Chest pain type: unspecified Qualified Code(s): R07.9 - Chest pain, unspecified (2) Atrial fibrillation with RVR: Remains in sinus rhythm patient is off of amiodarone due to possible liver dysfunction (3) CHF (congestive heart failure): Appear to be doing well continue dialysis, patient started making urine as well he had a 400 cc since this morning Qualifiers: Heart failure chronicity: acute on chronic Heart failure type: combined systolic and diastolic Qualified Code(s): I50.43 - Acute on chronic combined systolic (congestive) and diastolic (congestive) heart failure (4) Hypertension: Patient has borderline low normal blood pressure if required during dialysis may can use Levophed. Qualifiers: Hypertension type: primary hypertension Qualified Code(s): I10 - Essential (primary) hypertension (5) Chronic kidney disease: Dialysis today. Qualifiers: Chronic kidney disease stage: unspecified stage Qualified Code(s): N 18.9 - Chronic kidney disease, unspecified Plan Attestations 2 Medical Necessity Statement*: Patient require continuation hospitalization for above defined care. He needs ICU for continuation of hospitalization and treatment specially pressors Coding Level of Care Code Acute Code for [facility] Diagnoses Chest pain, unspecified type R07.9 Chest pain type: unspecified Atrial fibrillation with RVR I48.91 Acute on chronic combined systolic and diastolic congestive heart failure I50.43 Heart failure chronicity: acute on chronic Heart failure type: combined systolic and diastolic Primary hypertension I10 Hypertension type: primary hypertension Chronic kidney disease, unspecified CKD stage N18.9 Chronic kidney disease stage: unspecified stage
[2024-01-31] MEDS: albumin 12.5 GM/50 ML VIAL IV ×2 (15:00→15:50)
[2024-01-31] MEDS: heparin, porcine 1,000 unit/mL INJ 10 mL 2000 UNIT IV (15:00)
--- NOTE | 2024-01-31 15:07 | P.PN_ITS ---
Subjective 2 Subjective: Patient seen and examined. He successfully underwent hemodialysis yesterday. Patient became disoriented late this morning Vitals/I&O/Wt Last Vital Signs Temp 97.8 F 01/31/24 08:00 Pulse 64 01/31/24 14:49 Resp 17 01/31/24 12:30 BP 108/74 01/31/24 12:30 Pulse Ox 96 01/31/24 12:30 O2 Del Method Nasal Cannula 01/31/24 12:30 O2 Flow Rate 2 01/31/24 10:47 01/31/24 01/31/24 01/31/24 06:59 14:59 22:59 Intake Total 253.15 / 2622.116 160 / 160 Output Total 400 / 2705 200 / 200 Balance -146.85 / -82.884 -40 / -40 Weight last 48 hrs Weight 214 lb 8 oz Weight 214 lb 15.211 oz Weight 215 lb 9.6 oz Physical Exam 2 Narrative: General: No acute distress, arousable but not oriented Skin: Catheter insertion site without erythema or exudate Urinary Catheter Management: Oliva: Cath Placed During This Visit: yes Reason for Continuing Indwelling Catheter: Accurate Measurement of Urinary Output in Critically Ill Patients Urinary Catheter Date of Insertion: 01/29/24 Urinary Catheter Time of Insertion: 15:19 Data 01/31/24 04:38 01/31/24 04:38 Micro: Microbiology 01/30/24 11:56 Blood Culture - Preliminary Blood NEGATIVE TO DATE 01/30/24 12:00 Blood Culture - Preliminary Blood NEGATIVE TO DATE 01/29/24 20:40 Urine Culture - Preliminary Urine,Clean Catch Gram Negative Rods A&P Assessment and plan (1) Acute kidney injury superimposed on CKD: Plan Status post temporary hemodialysis catheter placement into right femoral vein Underwent hemodialysis successfully Medical management per hospitalist General Surgery will sign off. Please reconsult if he needs a permacath Attestations 2 Medical Necessity Statement*: Per primary Coding Level of Care Code 36805 Diagnoses Acute kidney injury superimposed on CKD N17.9; N18.9
[2024-01-31] MEDS: pantoprazole 40 mg SDV IVP (16:37)
--- NOTE | 2024-01-31 16:47 | P.PN_ITS ---
Subjective 2 Subjective: Lfts improving, creat at 4.7, improving electrolytes and acidosis today.Urine output 500 cc since overnight. planned for HD today Medications: Reviewed: Yes Vitals/I&O/Wt Last Vital Signs Temp 97.8 F 01/31/24 08:00 Pulse 64 01/31/24 14:49 Resp 17 01/31/24 12:30 BP 108/74 01/31/24 12:30 Pulse Ox 96 01/31/24 12:30 O2 Del Method Nasal Cannula 01/31/24 12:30 O2 Flow Rate 2 01/31/24 10:47 01/31/24 01/31/24 01/31/24 06:59 14:59 22:59 Intake Total 253.15 / 2622.116 160 / 160 50 / 210 Output Total 400 / 2705 200 / 200 400 / 600 Balance -146.85 / -82.884 -40 / -40 -350 / -390 Weight last 48 hrs Weight 97.296 kg Weight 97.5 kg Weight 97.795 kg Physical Exam 2 Narrative: General: Propped up in bed at 30 degrees, on 2 L/min supplemental O2. HEENT: PERRLA, pupils bilaterally equal and reactive, pallors not present Chest: Scattered crackles to auscultation bilaterally Abdomen: Soft, mildly distended Neuro: No focal deficits, moving all extremities, states he is extremely tired, falls asleep midsentence Extremities 3+ pitting edema bilaterally Urinary Catheter Management: Oliva: Cath Placed During This Visit: yes Reason for Continuing Indwelling Catheter: Accurate Measurement of Urinary Output in Critically Ill Patients Urinary Catheter Date of Insertion: 01/29/24 Urinary Catheter Time of Insertion: 15:19 Data 01/31/24 04:38 01/31/24 04:38 Micro: Microbiology 01/30/24 11:56 Blood Culture - Preliminary Blood NEGATIVE TO DATE 01/30/24 12:00 Blood Culture - Preliminary Blood NEGATIVE TO DATE 01/29/24 20:40 Urine Culture - Preliminary Urine,Clean Catch Gram Negative Rods A&P Assessment and plan (1) Ischemic cardiomyopathy: (2) Systolic heart failure: (3) Non-ST elevation OR (NSTEMI): (4) Atrial fibrillation with RVR: (5) Chronic kidney disease: Qualifiers: Chronic kidney disease stage: unspecified stage Qualified Code(s): N 18.9 - Chronic kidney disease, unspecified (6) Metabolic acidosis: (7) Acute kidney failure: (8) Leukocytosis: (9) Cardiorenal syndrome: (10) Transaminitis: (11) Acute liver failure: Plan Non-STEMI No active chest pain Established coronary disease Start ACS protocol A-fib RVR currently on amiodarone drip which needs to be titrated current heart rate is around 80s with stable hemodynamics Systolic CHF exacerbation Continue diuresis Chronic kidney disease: Creatinine 1.5, monitor urine output correlate with creatinine Patient has statin intolerance Cardiology consulted Full code Patient wants to discuss goals of care with her family and let us know 01/29/2024 : Patient has been receiving IV diuresis with Lasix, however has had no urine output. No urge to urinate. Bladder scan without any significant retention. Oliva catheter placed for accurate output measurement. Minimal urine at placement. Labs show interval worsening. LFTs worse with AST ALT greater than thousand. Normal alkaline phosphatase and T. bili. Acute hepatitis screen negative. Kidney function worsened with creatinine at 2.4 today. Overall clinical picture consistent with cardiogenic shock with previously known EF of 25% with hypokinesia, mild hypokinesis of the inferior inferoseptal and mid basal segments. Elevated right heart pressures with PASP of 45-50 from recent echocardiogram on January 15 2024. Will discuss with cardiology regarding inotropic support though his maps have been greater than 65 consistently. Wonder if he may benefit from the same. Discussed case with cardiology nurse practitioner today. Cardiology to decide regarding further angiogram. Previously known to have LCx lesion that was not amenable to intervention. Renal consult for worsening kidney function poor urine output, concerned that patient may end up needing dialysis if does not diurese adequately. Additionally if angiogram is being planned, with risk of YOSELIN, may need HD. Discussed this frankly with the patient. States that he needs to think a little bit more about whether or not he would want dialysis in the situation. 01/30/2024. Patient states he continues to feel poorly.Leukocytosis 20,000, kidney function worsening at 4.1, lactate 5.8, worsening LFTs AST ALT 3500, limited echocardiogram with further drop in EF to 13%, severe diffuse hypokinesia of the left ventricle, moderate to severe mitral valve regurgitation. Moderate to severe tricuspid valve regurgitation. PASP of 53. Overall clinical picture compatible with heart failure leading to multiorgan failure, poor perfusion state. Worsening transaminitis may be related to hepatic congestion versus poor perfusion. Amiodarone has been discontinued per cardiology recommendation given worsening liver function. Liver ultrasound with cholelithiasis without evidence of Álvarez signs or any signs of acute cholecystitis. CBD 0.4 cm. Incidentally noted small right pleural effusion. Overall technically difficult right upper quadrant study. Patient continues to be hypervolemic with very poor urine output. Additionally developing uremia, metabolic acidosis, remains anuric, plan to start dialysis today. Patient will get temporary HD catheter this afternoon and start dialysis afterwards. Closely monitor blood pressure with initiation of dialysis. May need inotropic support if MAP is less than 65. Further plans for angiogram to be decided after initiation of dialysis and optimization of fluid status, correction of electrolyte abnormalities. Leukocytosis 20,000, fever related to multiple acute stressors, however will perform any infectious source evaluation. Check chest x-ray for interval development of any pneumonia. Oliva catheter was inserted yesterday. Urine analysis showing 1+ protein, 3+ blood, 1+ bilirubin, 21-50 WBCs, 1+ leukocyte Estrace negative nitrate. Supplemental 02 at 2lpm. Check blood cultures. Start piperacillin/tazobactam renally dosed empirically while undergoing infectious evaluation. Hearin drip on hold for 6 hrs pending HD catheter insertion. Care plan discussed with patient in detail. prognosis guarded 01/31/2024: Started dialysis yesterday. Postdialysis 500 cc urine output overall. Net negative 1.8L last 24 hrs. To receive another session today. Needed transient levophed support to complete HD. Goal MAP > 65. Oxygen requirement at 4 L/min. LFTs are improving post HD .Urine cx with GNR 40,000 CFU. On zosyn empirically. CXR no consolidation. Continue heparin drip. Plan to optimize volume status and proceed to cardiac cath, hopefully early next week. rate remains controlled. Patient significantly deconditioned from his recent hospitalizations and multiple illnesses, PT/OT assessment for appropriate disposition planning Attestations 2 Medical Necessity Statement*: continued hospitalization, HD today , cath early next week Coding Level of Care Code Acute Code for Chg Fwd High MDM includes number and complexity of problems actively addressed during encounter, amount and/or complexity of data reviewed/ordered and described risk of complication, morbidity or mortality of management as documented Diagnoses Ischemic cardiomyopathy I25.5 Systolic heart failure I50.20 Non-ST elevation OR (NSTEMI) I21.4 Atrial fibrillation with RVR I48.91 Chronic kidney disease, unspecified CKD stage N18.9 Chronic kidney disease stage: unspecified stage Metabolic acidosis E87.20 Acute kidney failure N17.9 Leukocytosis D72.829 Cardiorenal syndrome I13.10 Transaminitis R74.01 Acute liver failure K72.00
--- NOTE | 2024-01-31 17:05 | PC.NURSE ---
Dr. Blancas verbal order to hold on PTT till patient is finished with dialysis.
[2024-01-31] MEDS: heparin, porcine 1,000 unit/mL INJ 10 mL 10000 UNIT INTRACATH (17:06)
[2024-01-31 21:10] LABS: Partial Thromboplastin Time 82.7 SECONDS (23.9-36.7)
[2024-01-31] MEDS: heparin drip 25,000 UNIT/500 ML PREMIX 21 UNIT IV (21:53)
[2024-01-31] MEDS: acetaminophen 325 mg Tablet 650 MG PO (22:03)
[2024-02-01] VITALS (51 sets, daily range): BP systolic 80–107; BP diastolic 53–76; PULSE 60–71; RESP 7–31; TEMP 36.4–37.2; O2SAT 88–100
[2024-02-01 05:29] LABS: Basophils % 0.2 %; Eosinophils # 0.1 10^3/uL (0.0-0.8); Eosinophils % 0.4 %; Hematocrit 37.7 % (37-53); Lymphocytes % 6.6 %; Mean Corpuscular Hemoglobin 31.4 pg (27-33); Mean Corpuscular Volume 92.4 fl (82-101); Mean Platelet Volume 10.8 fL (7.4-10.4); Monocytes # 0.7 10^3/uL (0.2-0.9); Monocytes % 4.8 %; Neutrophils # 13.19 10^3/uL (1.8-7.7); Neutrophils % 86.4 %; Nucleated Red Blood Cells # 0.4 /100WBC; Nucleated Red Blood Cells % 2.5 %; Platelet Count 111 10^3/cmm (157-399); Red Blood Count 4.08 10^6/uL (3.85-5.65); Red Cell Distribution Width 13.7 % (12.1-15.1); White Blood Count 15.26 10^3/uL (3.29-11.43)
[2024-02-01 05:55] LABS: Albumin Level 3.4 g/dL (3.5-5.2); Alkaline Phosphatase 88 U/L (40-130); Anion Gap 22.3 (5-19); Aspartate Amino Transferase 504 U/L (0-40); Blood Urea Nitrogen 61 mg/dL (8-23); Calcium 7.6 mg/dL (8.5-10.5); Carbon Dioxide 24 mmol/L (22-29); Chloride 93 mmol/L (98-107); Creatinine Clr Calc Pharmacy 14.2865; Globulin 2.3 g/dL (1.3-4.6); Glucose 107 mg/dL (65-115); Osmolality Calculated 298 mOsm/kg (285-295); Potassium 4.3 mmol/L (3.5-5.1); Sodium 135 mmol/L (136-145); Total Bilirubin 0.8 mg/dL (0.15-1.2); Total Protein 5.7 g/dL (6.6-8.7)
[2024-02-01 06:06] LABS: Alanine Aminotransferase 1753 U/L (0-41)
[2024-02-01] MEDS: aspirin 81 mg EC Tablet PO (08:34)
[2024-02-01] MEDS: metoprolol succinate ER (24 HR) 25 mg Tablet PO (08:34)
[2024-02-01] MEDS: levothyroxine 150 mcg Tablet PO (08:34)
[2024-02-01] MEDS: clopidogrel 75 mg Tablet PO (08:34)
[2024-02-01 08:35] LABS: Partial Thromboplastin Time 42.5 SECONDS (23.9-36.7)
[2024-02-01] MEDS: piperacillin-tazobactam 3.375 GM in sodium chloride 0.9% (plus) 50 ML IV (10:47)
--- NOTE | 2024-02-01 10:53 | PM.PN ---
Subjective Subjective: on 2L S/P HD yesterday Medications: Reviewed: Yes Vitals/I&O/Wt Last Vital Signs Temp 97.8 F 02/01/24 07:00 Pulse 66 02/01/24 08:00 Resp 28 H 02/01/24 08:00 BP 86/58 02/01/24 08:00 Pulse Ox 97 02/01/24 08:00 O2 Del Method Nasal Cannula 02/01/24 08:00 O2 Flow Rate 2 02/01/24 08:00 01/31/24 02/01/24 02/01/24 22:59 06:59 14:59 Intake Total 1279.267 / 1439.267 170 / 1609.267 349.25 / 349.25 Output Total 3500 / 3700 150 / 3850 Balance -2220.733 / -2260.733 20 / -2240.733 349.25 / 349.25 Weight last 48 hrs Weight 98.6 kg Weight 99 kg Weight 97.296 kg Weight 97.5 kg Physical Exam Const: OTHER: Patient is alert, awake .no distress Regular S1 and S2 Decreased breath sounds per report Lower extremities with 2+ edema Urinary Catheter Management: Oliva: Cath Placed During This Visit: yes Reason for Continuing Indwelling Catheter: Accurate Measurement of Urinary Output in Critically Ill Patients Urinary Catheter Date of Insertion: 01/29/24 Urinary Catheter Time of Insertion: 15:19 Data 02/01/24 05:13 02/01/24 05:13 Micro: Microbiology 01/30/24 11:56 Blood Culture - Preliminary Blood NEGATIVE TO DATE 01/30/24 12:00 Blood Culture - Preliminary Blood NEGATIVE TO DATE 01/29/24 20:40 Urine Culture - Preliminary Urine,Clean Catch Gram Negative Rods A&P Assessment and plan (1) JOHNNY (acute kidney injury): Plan (1) Acute kidney injury superimposed on CKD: Patient is a 78-year-old gentleman history of CAD recent cardiac catheterization on January 14, 2024 which was positive for a left circumflex lesion not amenable to intervention. Patient has heart failure reduced EF of 30%. Patient was admitted yesterday with chest pain shortness of breath palpitations A-fib with RVR and hypotension. 1. Chronic kidney disease. Baseline creatinine for the last year and a half appears to be 1.4 to 1.5 mg/dL. Etiology could be cardiorenal syndrome versus others will get a renal ultrasound with renal artery duplex and send urine studies. 2. Acute kidney injury in this patient differential diagnosis could be embolic disease versus ATN versus prerenal versus cardiorenal syndrome versus others. Evaluate with renal ultrasound and urine studies. -Has metabolic acidosis and Hyperkalemia - s/p temporary HD catheter placement and HD done 01/29, 01/30 -Next HD in [place] 3. Hyponatremia , monitor 5. Non-ST elevation ME with cardiogenic shock , and shock liver I discussed with the patient and his family that he may need temporary dialysis to consent to it as needed. The patient was seen and examined with the aid of A/V equipment and his nurse examined the patient. Attestations Medical Necessity Statement*: per medicine team Coding Level of Care Code Acute Code for [facility] Diagnoses JOHNNY (acute kidney injury) N17.9
[2024-02-01] MEDS: polyethylene glycol 3350 Pkt 17 gm PO (11:09)
--- NOTE | 2024-02-01 11:30 | P.PN_ITS ---
Subjective 2 Subjective: LFTs improving today. Stable leukocytosis. Creatinine at 5.1. Electrolytes and bicarb improved. Intermittently needed to be on Levophed after dialysis yesterday. Has been off since this morning. Oxygen requirement at 2 L/min Medications: Reviewed: Yes Vitals/I&O/Wt Last Vital Signs Temp 97.9 F 02/01/24 11:00 Pulse 63 02/01/24 16:00 Resp 20 H 02/01/24 16:00 BP 93/62 02/01/24 16:00 Pulse Ox 96 02/01/24 16:00 O2 Del Method Nasal Cannula 02/01/24 16:00 O2 Flow Rate 2 02/01/24 16:00 02/01/24 02/01/24 02/01/24 06:59 14:59 22:59 Intake Total 170 / 1609.267 517.25 / 517.25 453.333 / 970.583 Output Total 150 / 3850 Balance 20 / -2240.733 517.25 / 517.25 453.333 / 970.583 Weight last 48 hrs Weight 98.6 kg Weight 99 kg Weight 97.296 kg Weight 97.5 kg Physical Exam 2 Narrative: General: Propped up in bed at 30 degrees, on 2 L/min supplemental O2. HEENT: PERRLA, pupils bilaterally equal and reactive, pallors not present Chest: Scattered crackles to auscultation bilaterally Abdomen: Soft, mildly distended Neuro: No focal deficits, moving all extremities, states he is extremely tired, falls asleep midsentence Extremities : improving edema Urinary Catheter Management: Oliva: Cath Placed During This Visit: yes Reason for Continuing Indwelling Catheter: Accurate Measurement of Urinary Output in Critically Ill Patients Urinary Catheter Date of Insertion: 01/29/24 Urinary Catheter Time of Insertion: 15:19 Data 02/01/24 05:13 02/01/24 05:13 Micro: Microbiology 01/29/24 20:40 Urine Culture - Final Urine,Clean Catch Escherichia coli 01/30/24 11:56 Blood Culture - Preliminary Blood NEGATIVE TO DATE 01/30/24 12:00 Blood Culture - Preliminary Blood NEGATIVE TO DATE A&P Assessment and plan (1) Ischemic cardiomyopathy: (2) Systolic heart failure: (3) Non-ST elevation CA (NSTEMI): (4) Atrial fibrillation with RVR: (5) Chronic kidney disease: Qualifiers: Chronic kidney disease stage: unspecified stage Qualified Code(s): N 18.9 - Chronic kidney disease, unspecified (6) Metabolic acidosis: (7) Acute kidney failure: (8) Leukocytosis: (9) Cardiorenal syndrome: (10) Transaminitis: (11) Acute liver failure: (12) UTI (urinary tract infection): Plan Non-STEMI No active chest pain Established coronary disease Start ACS protocol A-fib RVR currently on amiodarone drip which needs to be titrated current heart rate is around 80s with stable hemodynamics Systolic CHF exacerbation Continue diuresis Chronic kidney disease: Creatinine 1.5, monitor urine output correlate with creatinine Patient has statin intolerance Cardiology consulted Full code Patient wants to discuss goals of care with her family and let us know 01/29/2024 : Patient has been receiving IV diuresis with Lasix, however has had no urine output. No urge to urinate. Bladder scan without any significant retention. Oliva catheter placed for accurate output measurement. Minimal urine at placement. Labs show interval worsening. LFTs worse with AST ALT greater than thousand. Normal alkaline phosphatase and T. bili. Acute hepatitis screen negative. Kidney function worsened with creatinine at 2.4 today. Overall clinical picture consistent with cardiogenic shock with previously known EF of 25% with hypokinesia, mild hypokinesis of the inferior inferoseptal and mid basal segments. Elevated right heart pressures with PASP of 45-50 from recent echocardiogram on January 15 2024. Will discuss with cardiology regarding inotropic support though his maps have been greater than 65 consistently. Wonder if he may benefit from the same. Discussed case with cardiology nurse practitioner today. Cardiology to decide regarding further angiogram. Previously known to have LCx lesion that was not amenable to intervention. Renal consult for worsening kidney function poor urine output, concerned that patient may end up needing dialysis if does not diurese adequately. Additionally if angiogram is being planned, with risk of YOSELIN, may need HD. Discussed this frankly with the patient. States that he needs to think a little bit more about whether or not he would want dialysis in the situation. 01/30/2024. Patient states he continues to feel poorly.Leukocytosis 20,000, kidney function worsening at 4.1, lactate 5.8, worsening LFTs AST ALT 3500, limited echocardiogram with further drop in EF to 13%, severe diffuse hypokinesia of the left ventricle, moderate to severe mitral valve regurgitation. Moderate to severe tricuspid valve regurgitation. PASP of 53. Overall clinical picture compatible with heart failure leading to multiorgan failure, poor perfusion state. Worsening transaminitis may be related to hepatic congestion versus poor perfusion. Amiodarone has been discontinued per cardiology recommendation given worsening liver function. Liver ultrasound with cholelithiasis without evidence of Álvarez signs or any signs of acute cholecystitis. CBD 0.4 cm. Incidentally noted small right pleural effusion. Overall technically difficult right upper quadrant study. Patient continues to be hypervolemic with very poor urine output. Additionally developing uremia, metabolic acidosis, remains anuric, plan to start dialysis today. Patient will get temporary HD catheter this afternoon and start dialysis afterwards. Closely monitor blood pressure with initiation of dialysis. May need inotropic support if MAP is less than 65. Further plans for angiogram to be decided after initiation of dialysis and optimization of fluid status, correction of electrolyte abnormalities. Leukocytosis 20,000, fever related to multiple acute stressors, however will perform any infectious source evaluation. Check chest x-ray for interval development of any pneumonia. Oliva catheter was inserted yesterday. Urine analysis showing 1+ protein, 3+ blood, 1+ bilirubin, 21-50 WBCs, 1+ leukocyte Estrace negative nitrate. Supplemental 02 at 2lpm. Check blood cultures. Start piperacillin/tazobactam renally dosed empirically while undergoing infectious evaluation. Hearin drip on hold for 6 hrs pending HD catheter insertion. Care plan discussed with patient in detail. prognosis guarded 01/31/2024: Started dialysis yesterday. Postdialysis 500 cc urine output overall. Net negative 1.8L last 24 hrs. To receive another session today. Needed transient levophed support to complete HD. Goal MAP > 65. Oxygen requirement at 4 L/min. LFTs are improving post HD .Urine cx with GNR 40,000 CFU. On zosyn empirically. CXR no consolidation. Continue heparin drip. Plan to optimize volume status and proceed to cardiac cath, hopefully early next week. rate remains controlled. Patient significantly deconditioned from his recent hospitalizations and multiple illnesses, PT/OT assessment for appropriate disposition planning 02/01/2024 Had HD yesterday. Net -900 cc last 24 hours. Urine output 250 cc. Creatinine at 5.1 today. Intermittently hypotensive after dialysis yesterday for which she needed Levophed, however is off since this morning. Liver function is improving. Overall appears to be clinically better since starting dialysis. Edema is improving. Oxygen requirement at 2 L/min today. Urine culture with E. coli which is pansensitive. Discontinue piperacillin/tazobactam and switch to ceftriaxone 1 g IV every 24 hours for a total course of 7 days. Planned dialysis session tomorrow. Plan for left and right heart cath on Friday to assess for any IFR of mid LAD and if significant to proceed with the PCI. We are continuing aspirin Plavix and heparin drip in the interim.He is intolerant of statins. Attestations 2 Medical Necessity Statement*: continued admission for CHF, NSTEMI, acute renal failure needing diuresis, intermittent need for pressors Critical Care Time: The high probability of a clinically significant, sudden or life threatening deterioration of the patient's [cardiac, respiratory, renal, ID] system(s) required my full and direct attention, intervention and personal management. The critical care time is as shown. This time is in addition to time spent performing any reported procedures but includes the following: [x] Data and vital sign review and interpretation [x] Patient assessment, examination and intervention [x] Documentation [x] Medication orders and management Critical Care Time (min): 50 Coding Level of Care Code Critical Care >/= 30 minutes Diagnoses Ischemic cardiomyopathy I25.5 Systolic heart failure I50.20 Non-ST elevation CA (NSTEMI) I21.4 Atrial fibrillation with RVR I48.91 Chronic kidney disease, unspecified CKD stage N18.9 Chronic kidney disease stage: unspecified stage Metabolic acidosis E87.20 Acute kidney failure N17.9 Leukocytosis D72.829 Cardiorenal syndrome I13.10 Transaminitis R74.01 Acute liver failure K72.00 UTI (urinary tract infection) N39.0
--- NOTE | 2024-02-01 16:11 | PM.PN ---
Subjective Subjective: Patient appeared to be stable denies any chest pain or shortness of breath. Liver functions improving so does lactic acid has normalized. Electrolytes has improved. Medications: Reviewed: Yes Vitals/I&O/Wt Last Vital Signs Temp 97.9 F 02/01/24 11:00 Pulse 63 02/01/24 16:00 Resp 20 H 02/01/24 16:00 BP 93/62 02/01/24 16:00 Pulse Ox 96 02/01/24 16:00 O2 Del Method Nasal Cannula 02/01/24 16:00 O2 Flow Rate 2 02/01/24 16:00 02/01/24 02/01/24 02/01/24 06:59 14:59 22:59 Intake Total 170 / 1609.267 517.25 / 517.25 240 / 757.25 Output Total 150 / 3850 Balance 20 / -2240.733 517.25 / 517.25 240 / 757.25 Weight last 48 hrs Weight 217 lb 6.012 oz Weight 218 lb 4.122 oz Weight 214 lb 8 oz Weight 214 lb 15.211 oz Physical Exam Const: OTHER: GENERAL: Patient is alert, awake and oriented x3. HEART: Regular S1 and S2. No murmur, rub or gallop. LUNGS: Decreased breath sounds but no crackles now bilaterally. CENTRAL NERVOUS SYSTEM: Grossly nonfocal. EXTREMITIES: Lower extremities with 1+ bilaterally. Urinary Catheter Management: Oliva: Cath Placed During This Visit: yes Reason for Continuing Indwelling Catheter: Accurate Measurement of Urinary Output in Critically Ill Patients Urinary Catheter Date of Insertion: 01/29/24 Urinary Catheter Time of Insertion: 15:19 Data 02/01/24 05:13 02/01/24 05:13 Micro: Microbiology 01/29/24 20:40 Urine Culture - Final Urine,Clean Catch Escherichia coli 01/30/24 11:56 Blood Culture - Preliminary Blood NEGATIVE TO DATE 01/30/24 12:00 Blood Culture - Preliminary Blood NEGATIVE TO DATE A&P Assessment and plan (1) Chest pain: Patient is in volume overload status with underlying coronary artery disease in the face of renal failure troponin elevation may not relieve presented to acute coronary syndrome however given patient worsening situation severe LV dysfunction recurrent heart failure mid and distal LAD lesion upon examining prior angiogram may require further assessment through IFR/hemodynamics, since patient is not in persistent chest pain but because of fact there is no arrhythmia and he is in heart failure along with renal failure with electrolyte derangement with high lactate despite of reasonably good blood pressure with manage first removing fluid either through diuretics which we have not succeeded other option is temporary dialysis which the patient will be going for today, once euvolemic and electrolytes are balance will consider right and left heart cath. On today's visit dated 01/31/2024 patient overall has improved after dialysis. At this point he appeared to be stable coronary artery disease perspective louise. Will continue to diurese and try to get him euvolemic as in decompensated state of heart failure with severely depressed left ventricular ejection fraction patient is high risk for PCI with higher left ventricular end-diastolic pressure, my plan is to take him to the [facility] on Friday for possible IFR of mid LAD and if significant to proceed with PCI. I have detailed discussion with the patient and the family they are in agreement. Continue aspirin statin and anticoagulation/antiplatelets. On today's visit dated 02/01/2024 patient continues to improve steadily on the dialysis. He does not appear to be that much volume overloaded however remains low normal on the blood pressure requiring Levophed from time to time. At this point my plan is to try to take him to [facility] tomorrow most likely I will perform right and left heart cath if needed intervention he may will be requiring Impella given his severely depressed left ventricular ejection fraction and high risk PCI in the face of underlying heart failure and severely depressed ejection fraction he may not tolerate ballooning and stenting due to high left ventricular end-diastolic pressure. Qualifiers: Chest pain type: unspecified Qualified Code(s): R07.9 - Chest pain, unspecified (2) Atrial fibrillation with RVR: Continue to hold amiodarone patient is in sinus rhythm (3) CHF (congestive heart failure): Appear to be compensated plan for Impella guided PCI tomorrow with right and left heart cath. Patient will be n.p.o. overnight Qualifiers: Heart failure chronicity: acute on chronic Heart failure type: combined systolic and diastolic Qualified Code(s): I50.43 - Acute on chronic combined systolic (congestive) and diastolic (congestive) heart failure (4) Hypertension: Patient has borderline low normal blood pressure if required during dialysis may can use Levophed. Qualifiers: Hypertension type: primary hypertension Qualified Code(s): I10 - Essential (primary) hypertension (5) Chronic kidney disease: As per nephrology Qualifiers: Chronic kidney disease stage: unspecified stage Qualified Code(s): N18.9 - Chronic kidney disease, unspecified Plan This is a very complicated patient with multiorgan failure severely depressed left ventricular ejection fraction cardiorenal syndrome/cardiogenic shock underlying cardiomyopathy moderate to severe mitral and severe tricuspid regurgitation. Planning for high risk PCI with hemodynamic stability under Impella guidance. Patient and family like to do everything for them. Discussed in detail all risk-benefit and alternative for the procedure including risk for stroke as is gone to be high mortality 10 to 15%, worsening of kidney disease leading to permanent dialysis, chronic patient does not have life quality and would like to take every chest. Attestations Medical Necessity Statement*: I am expecting his stay to continue in the ICU for above defined care. Coding Level of Care Code Acute Code for [facility] Diagnoses Chest pain, unspecified type R07.9 Chest pain type: unspecified Atrial fibrillation with RVR I48.91 Acute on chronic combined systolic and diastolic congestive heart failure I50.43 Heart failure chronicity: acute on chronic Heart failure type: combined systolic and diastolic Primary hypertension I10 Hypertension type: primary hypertension Chronic kidney disease, unspecified CKD stage N18.9 Chronic kidney disease stage: unspecified stage
[2024-02-01] MEDS: heparin drip 25,000 UNIT/500 ML PREMIX 25 UNIT IV (17:20)
[2024-02-01] MEDS: pantoprazole 40 mg SDV IVP (17:21)
[2024-02-01] MEDS: heparin 5,000 unit/mL INJ 1 mL IVP (22:25)
[2024-02-02] VITALS (42 sets, daily range): BP systolic 86–116; BP diastolic 60–95; PULSE 62–90; RESP 0–61; TEMP 35.6–36.9; O2SAT 85–98; BMI 28.8
[2024-02-02 05:30] LABS: Albumin Level 3.3 g/dL (3.5-5.2); Alkaline Phosphatase 82 U/L (40-130); Anion Gap 24.5 (5-19); Aspartate Amino Transferase 297 U/L (0-40); Blood Urea Nitrogen 78 mg/dL (8-23); Calcium 7.7 mg/dL (8.5-10.5); Carbon Dioxide 23 mmol/L (22-29); Chloride 90 mmol/L (98-107); Creatinine Clr Calc Pharmacy 12.1435; Globulin 2.4 g/dL (1.3-4.6); Glucose 107 mg/dL (65-115); Magnesium 2.4 mg/dL (1.7-2.3); Osmolality Calculated 300 mOsm/kg (285-295); Partial Thromboplastin Time 69.6 SECONDS (23.9-36.7); Potassium 4.5 mmol/L (3.5-5.1); Sodium 133 mmol/L (136-145); Total Bilirubin 0.7 mg/dL (0.15-1.2); Total Protein 5.7 g/dL (6.6-8.7)
[2024-02-02 05:37] LABS: Basophils % 0.2 %; Eosinophils # 0.1 10^3/uL (0.0-0.8); Eosinophils % 0.4 %; Hematocrit 39.1 % (37-53); Lymphocytes # 0.8 10^3/uL (0.8-4.8); Lymphocytes % 6.1 %; Mean Corpuscular HGB Conc 34.3 g/dL (30-55); Mean Corpuscular Hemoglobin 30.6 pg (27-33); Mean Corpuscular Volume 89.3 fl (82-101); Mean Platelet Volume 11.7 fL (7.4-10.4); Monocytes # 0.9 10^3/uL (0.2-0.9); Monocytes % 6.6 %; Neutrophils # 11.27 10^3/uL (1.8-7.7); Neutrophils % 85.5 %; Nucleated Red Blood Cells # 0.2 /100WBC; Nucleated Red Blood Cells % 1.3 %; Platelet Count 109 10^3/cmm (157-399); Red Blood Count 4.38 10^6/uL (3.85-5.65); Red Cell Distribution Width 13.6 % (12.1-15.1); White Blood Count 13.19 10^3/uL (3.29-11.43)
[2024-02-02 05:45] LABS: Alanine Aminotransferase 1408 U/L (0-41)
[2024-02-02 05:46] LABS: Phosphorus 9.1 mg/dL (2.5-4.5)
--- NOTE | 2024-02-02 08:04 | PC.NURSE ---
Confused this morning and very angry and upset. Patient stating that he wants to be released and does not want any of this anymore. When patient asked orientation questions refusing to answer just stares away from this nurse. Assisted patient on and off of bedpan and patient remains upset and states I don't want any of this . Explained to patient that his would be at the hospital this morning to visit and they could discuss his plan of care.
--- NOTE | 2024-02-02 08:43 | PM.PN ---
Subjective Subjective: on 6L NC Medications: Reviewed: Yes Vitals/I&O/Wt Last Vital Signs Temp 98.1 F 02/02/24 08:00 Pulse 65 02/02/24 08:07 Resp 25 H 02/02/24 08:00 BP 99/66 02/02/24 08:00 Pulse Ox 94 02/02/24 08:07 O2 Del Method Nasal Cannula 02/02/24 08:07 O2 Flow Rate 3 02/02/24 08:07 02/01/24 02/02/24 02/02/24 22:59 06:59 14:59 Intake Total 820.833 / 1338.083 192.6 / 1530.683 0 / 0 Output Total 150 / 150 550 / 700 Balance 670.833 / 1188.083 -357.4 / 830.683 0 / 0 Weight last 48 hrs Weight 96.615 kg Weight 98.6 kg Weight 99 kg Physical Exam Const: OTHER: Patient is alert, awake .no distress Regular S1 and S2 Decreased breath sounds per report Lower extremities with 2+ edema Urinary Catheter Management: Oliva: Cath Placed During This Visit: yes Reason for Continuing Indwelling Catheter: Accurate Measurement of Urinary Output in Critically Ill Patients Urinary Catheter Date of Insertion: 01/29/24 Urinary Catheter Time of Insertion: 15:19 Data 02/02/24 04:56 02/02/24 04:56 Micro: Microbiology 01/29/24 20:40 Urine Culture - Final Urine,Clean Catch Escherichia coli A&P Assessment and plan (1) JOHNNY (acute kidney injury): Plan (1) Acute kidney injury superimposed on CKD: Patient is a 78-year-old gentleman history of CAD recent cardiac catheterization on January 14, 2024 which was positive for a left circumflex lesion not amenable to intervention. Patient has heart failure reduced EF of 30%. Patient was admitted yesterday with chest pain shortness of breath palpitations A-fib with RVR and hypotension. 1. Chronic kidney disease. Baseline creatinine for the last year and a half appears to be 1.4 to 1.5 mg/dL. Etiology could be cardiorenal syndrome versus others will get a renal ultrasound with renal artery duplex and send urine studies. 2. Acute kidney injury in this patient differential diagnosis could be embolic disease versus ATN versus prerenal versus cardiorenal syndrome versus others. Evaluate with renal ultrasound and urine studies. -Has metabolic acidosis and Hyperkalemia - s/p temporary HD catheter placement and HD done 01/29, 01/30 -Next HD today post [facility] 3. Hyponatremia , monitor 5. Non-ST elevation SD with cardiogenic shock , and shock liver I discussed with the patient and his family that he may need temporary dialysis to consent to it as needed. The patient was seen and examined with the aid of A/V equipment and his nurse examined the patient. Attestations Medical Necessity Statement*: per [place] Coding Level [facility] Care Code [facility] JOHNNY (acute kidney injury) N17.9
--- NOTE | 2024-02-02 08:53 | PC.NURSE ---
Dr. Snider to patients room to talk with patient about plans for heart cath with impella today. Patient upset about all things that are going on and hearing the TV from the patients room next door Dr. Guzman and this nurse talked with patient and will move patient to another room in ICU where the TV is not so loud. Daughter Marilia Estrada notified that patient will be going to labor contract analyst around AM. Daughter states that she will be on her way and will contact her mother to see if she is going to be able to come to the hospital today.
[2024-02-02] MEDS: clopidogrel 75 mg Tablet PO (09:13)
[2024-02-02] MEDS: aspirin 325 mg Tablet PO (09:13)
[2024-02-02] MEDS: diphenhydrAMINE 50 mg Capsule PO (09:13)
[2024-02-02] MEDS: levothyroxine 150 mcg Tablet PO (09:13)
[2024-02-02] MEDS: sodium chloride 0.9% 1,000 ML 50 ML IV (09:14)
--- NOTE | 2024-02-02 09:23 | XACV_ITS ---
Exam Room: [facility] Ht: 183 cm Wt: 97 kg BSA: 2.23 m2 Gender: Male : 1945 Any Known Allergies: Other Exam Priority: Routine Procedure(s): Procedure Description: Diagnostic procedure Procedure Description: PCI procedure Procedure Description: Left Heart Catheterization Procedure Description: Drug Eluting Coronary Stent Procedure Description: PTCA Procedure Description: Miscellaneous Procedure Description: ACT Procedure Description: Coronary Angiography Procedure Description: Pressure Wire Agatha BROWN; Diagnostic Cath Status: Urgent Diagnostic Findings * There was no left main LAD and left circumflex at separate ostium. * Left circumflex has luminal irregularities with possible occluded obtuse marginal which may is a small vessel. * Right Coronary Artery has no disease. * Mid Left Anterior Descending: significant 80% stenosis, ADAM: 3 flow, iFR performed: ratio is 0.9. * Distal Left Anterior Descending: obstructive 70% stenosis, ADAM: 3 flow. PCI Status: Urgent PCI Indication: NSTE - ACS Interventional Findings * Mid Left Anterior Descendin% stenosis treated with a AB TREK 2.50X12 RX BALLOON, IVL shockwave 2.5 X 12mm, MDT R EMERALD 2.75X26 LIONEL, MDT NC EUPHORA RX [id number] BALLOON, MDT R EMERALD 3.5X15 LIONEL, and MDT NC EUPHORA RX [id number] BALLOON. 0% residual stenosis, ADAM: 3 flow. Successful intervention. * Distal Left Anterior Descendin% stenosis treated with a AB TREK 2.50X12 RX BALLOON, and MDT R EMERALD 2.5X15 LIONEL. 20% residual stenosis, ADAM: 3 flow. * After preparing left and right groin, [13] F sheath was inserted in the left common femoral artery. Impella device CP was inserted over the wire through the aorta in the left ventricle. Arterial delivery tube was placed in the aorta for left ventricular pump failure, after placing two pre-close suture. * Multiple pulses of ultrasound lithotripsy delivered using IVL 2.5 x 12 mm catheter to modify mid LAD lesion before treating with drug-eluting stent placement. Conclusions 1. There is significant coronary artery disease with one vessel disease. 2. Mid Left Anterior Descending was treated with a Balloon, Balloon, Drug Eluting Stent, Balloon, Drug Eluting Stent, and Balloon. 3. Distal Left Anterior Descending was treated with a Balloon, and Drug Eluting Stent. 4. Indication for PCI and Impella placement: Severe LV dysfunction, cardiogenic shock, ischemic cardiomyopathy, persistent hypotension, mechanical support, non-ST elevation PR, worsening of heart failure. Recommendations * Continue current medical management and risk factor modification. * 1-Return to ICU for close monitoring and routine cath care 2-Risk factor modification for secondary prevention 3-Statin and aspirin 81 mg life-long, if tolerated 4-Continue Plavix 75mg p.o. daily for at least one year. We will assess at the end of one year again to continue if further or not 5-Continue optimal medical management 6-Continue Impella support Over next 24-hour we will reassess. Interventional RX Recommendation: PCI w/o planned CABG Diagnostic RX Recommendation: PCI w/o planned CABG Pressures Phase:Rest AO : 104 / 60 ( 71 ) @ 11:40:00 AM 107 / 77 ( 88 ) @ 12:01:00 PM 108 / 78 ( 91 ) @ 12:06:00 PM 106 / 77 ( 89 ) @ 12:48:00 PM 105 / 78 ( 91 ) @ 1:01:00 PM 128 / 75 ( 92 ) @ 1:08:00 PM 122 / 55 ( 74 ) @ 1:08:00 PM 116 / 83 ( 98 ) @ 1:36:00 PM 98 / 79 ( 89 ) @ 2:31:00 PM 99 / 79 ( 89 ) @ 2:38:00 PM LV : 115 / 0 / 34 @ 1:06:00 PM 116 / 2 / 34 @ 1:08:00 PM Valves Phase:DefaultPhase AV : 0.0 @ 3:09:43 PM AV Mean Gradient: 0.0 @ 3:09:43 PM Clinical Evaluation EBL: 5mL-10mL Procedural Details Pre-Procedure Time Out. Identified patient by full name and date of as verbalized by the patient/guarantor. Does the consent match the physician's order: Yes. Accurate & Complete Informed Consent: Yes. Inpatient/Outpatient History & Physical on Chart: Yes. If H&P is completed, is and addenduem needed: No; If yes, is the addendum complete: N/A. Visualize and Verify Site with Patient/Guarantor: N/A. Relevant Radiology Images available: N/A. Pre-op teaching completed and patient verbalized understanding. The risks, benefits, and alternatives of sedation and/or procedure were discussed by physician. The patient agrees to continue. Procedure started. Admit Source: In Patient. [facility] Clinical Fraility Score: 4: Vulnerable. Environmental Compliance Technician Indications: Known CAD, Cardiogenic shock, LV dysfunction. Chest Pain Symptom Assessment: Atypical Angina. Correct patient, site and procedure confirmed by cath team. Current diagnosis: Nstemi. PERRLA. Strong, equal hand medical education manager bilaterally. Lungs clear x 5 lobes. IV Site on Arrival: 20 gauge in the left upper arm. IV Site on Arrival: 20 gauge in the right wrist. IV Site on Arrival: 22 gauge in the right forearm. IV Fluids: 0.9% NaCl at KVO. 0 mL infused prior to agriculture laboratory technician. Pre Procedural Pulses: bilateral posterior tibial was Doppled. Pre Procedural Pulses: bilateral dorsalis pedis was Doppled. Oxygen started at 3liters/min via nasal canula. bilateral groins was prepped with chloroprep then draped in the usual sterile fashion. Physician notified. Baseline sample Acquired. HR: 67 BPM. AP pads applied. Physician arrived. Physician scrubbed in. Immediate Pre-Procedure Time Out. Correct Patient: Yes; Correct Procedure: Yes; Correct Site: Yes; Correct Patient Position: Yes; Correct Supplies: Yes; Dried Flammable Prep: Yes; Blood Products Available: Yes;. Lidocaine 1% infiltrated to the left groin. Venous access obtained with a micropuncture set. Unable to advance wire. Wire and needle out. Holding manual pressure. Arterial access obtained with micropuncture set. Hand injection through sheath to visualize femoral artery. Lidocaine 1% infiltrated to the left groin. Venous access obtained with a micropuncture set. 5Fr arterial sheath out over standard wire. 6Fr perclose inserted for pre-closure of left femoral artery over standard wire. LOT # [id number] 03-16-24. Second 6Fr perclose inserted for pre-closureof left femoral artery over standard wire. LOT # [id number] 03-16-24. 5fr sheath back into left femoral artery over standard wire. Sheath upsized to a 6 Fr. A 5 iraqi JR4 catheter in over wire. ACT drawn. Results 142 seconds. Therapeutic limits - pre-heparin administration 90-150 seconds and monitoring heparin during a vascular procedure >250 seconds. View taken of right coronary artery. Exchange wire obtained. Catheter removed over the exchange wire. 6 iraqi XB 3.5 SH guide catheter was inserted over the exchange wire. Guide catheter out over exchange wire. 6fr short sheath exchanged for 6fr 45cm flexor sheath over exchange wire. 6 iraqi XB 4 guide catheter was inserted over the wire. Wire out. add inventory: co-test pilot, endoflator. Angiography of LCS. Runthrough guidewire was advanced through the guide catheter to the mid Circ. Seperate ostiums observed under angiography. Wire out. Right radial prepped with chloraprep and draped in sterile fashion. 22G IV to right wrist removed. Lidocaine 1% infiltrated to the right radial. Arterial access obtained. ACT drawn. Results 333 seconds. Therapeutic limits - pre-heparin administration 90-150 seconds and monitoring heparin during a vascular procedure >250 seconds. XB4 guide catheter removed from left groin sheath. 6 iraqi XB 3.5 SH guide catheter was inserted into radial sheath over the exchange wire. Runthrough guidewire was advanced through the guide catheter to lesion in the Mid LAD. Guidewire advanced across lesion. iFR pressure guide wire advanced through guide catheter to lesion in the mid LAD. Pressure Guidewire advanced across lesion. iFR mid LAD 0.89mmHg. IFR wire out. A 5 iraqi Angled Pig catheter in over wire through 6fr groin sheath. EDP Sample taken: LV 115/0,34; HR: 71 BPM; SpO2: 99%. Pullback taken: LV 116/2,34; AO 128/75(92); Mean: 0mmHg, Peak to Peak: 0mmHg, SEP: 16sec/min; HR: 71 BPM; SpO2: 98%. Impella kit guidewire in through pigtail. Pigtail out over kit guidewire. 6fr flexor sheath out over wire. 8fr dilator in and out over wire. 10fr dilator in and out over wire. 12fr dilator in and out over wire. 14fr Impella sheath in over wire. Pt family updated. ACT drawn. Results 202 seconds. Therapeutic limits - pre-heparin administration 90-150 seconds and monitoring heparin during a vascular procedure >250 seconds. 14fr sheath dilator out over wire. 5fr pigtail catheter in over impella kit guidewire. Impella kit wire out through pigtail catheter. Exchange wire in to reposition pigtail catheter. Exchange wire out. Impella kit 0.18 guidewire in through pigtail catheter. Pigtail out over wire. Impella CP loaded on over 0.18 guidewire and advanced to LV. 0.18 wire out. Impella CP adequately postioned across the valve with a flow of 3.7L/min . 2nd runthrough wire in through guide catheter to lesion in distal LAD. Guidewire advanced across lesion. 1st runthrough wire out. Balloon inserted to lesion in the distal LAD. Inflation number : 1 A AB TREK 2.50X12 RX BALLOON was prepped and advanced across the Dist LAD , then inflated to 12 SOFYA for 0:11 seconds. Inflation number: 2 The AB TREK 2.50X12 RX BALLOON was reinflated across the Dist LAD, to 0 SOFYA for 0:06 seconds. Inflation number: 3 The AB TREK 2.50X12 RX BALLOON was reinflated across the Dist LAD, to 12 SOFYA for 0:18 seconds. Inflation number: 4 The AB TREK 2.50X12 RX BALLOON was reinflated across the Dist LAD, to 12 SOFYA for 0:13 seconds. Inflation number: 1 The AB TREK 2.50X12 RX BALLOON was reinflated across the Mid LAD, to 14 SOFYA for 0:16 seconds. Inflation number: 2 The AB TREK 2.50X12 RX BALLOON was reinflated across the Mid LAD, to 12 SOFYA for 0:16 seconds. Inflation number: 3 The AB TREK 2.50X12 RX BALLOON was reinflated across the Mid LAD, to 14 SOFYA for 0:15 seconds. Balloon out. Angiography performed. Stent inserted to lesion in the distal LAD. Inflation Number : 5 A MDT R EMERALD 2.5X15 LIONEL -Lot Number# [id number] EXP 11-16-2025 was prepped and advanced across the Dist LAD. The stent was deployed at 12 SOFYA for 0:28 seconds. Stent balloon out over wire. Angiography performed, results checked. SAMANTA Lane is now circulating in place of Brenton Modi RN. Brenton Modi RN now scrubbed in for Soumya Harrison RN. ACT drawn. Results 291 seconds. Therapeutic limits - pre-heparin administration 90-150 seconds and monitoring heparin during a vascular procedure >250 seconds. Tala Denny RN was relieved by Soumya Harrison RN, [facility] as monitoring person. Inflation number : 4 A IVL shockwave 2.5 X 12mm was prepped and advanced across the Mid LAD , then inflated to 4 SOFYA for 0:26 seconds. Inflation number: 5 The IVL shockwave 2.5 X 12mm was reinflated across the Mid LAD, to 4 SOFYA for 0:14 seconds. Inflation number: 6 The IVL shockwave 2.5 X 12mm was reinflated across the Mid LAD, to 4 SOFYA for 0:20 seconds. Inflation number: 7 The IVL shockwave 2.5 X 12mm was reinflated across the Mid LAD, to 4 SOFYA for 0:18 seconds. Inflation number: 8 The IVL shockwave 2.5 X 12mm was reinflated across the Mid LAD, to 4 SOFYA for 0:18 seconds. Inflation number: 9 The IVL shockwave 2.5 X 12mm was reinflated across the Mid LAD, to 4 SOFYA for 0:23 seconds. Inflation number: 10 The IVL shockwave 2.5 X 12mm was reinflated across the Mid LAD, to 4 SOFYA for 0:21 seconds. Inflation number: 11 The IVL shockwave 2.5 X 12mm was reinflated across the Mid LAD, to 4 SOFYA for 0:20 seconds. Inflation number: 12 The IVL shockwave 2.5 X 12mm was reinflated across the Mid LAD, to 4 SOFYA for 0:15 seconds. Inflation number: 13 The IVL shockwave 2.5 X 12mm was reinflated across the Mid LAD, to 4 SOFYA for 0:22 seconds. Inflation number: 14 The IVL shockwave 2.5 X 12mm was reinflated across the Mid LAD, to 4 SOFYA for 0:20 seconds. Inflation number: 15 The IVL shockwave 2.5 X 12mm was reinflated across the Mid LAD, to 4 SOFYA for 0:17 seconds. Balloon out. Inflation Number : 16 A MDT R EMERALD 2.75X26 LIONEL -Lot Number# [id number] was prepped and advanced across the Mid LAD. The stent was deployed at 16 SOFYA for 0:22 seconds. Exp. . Inflation number : 17 A MDT NC EUPHORA RX [id number] BALLOON was prepped and advanced across the Mid LAD , then inflated to 9 SOFYA for 0:22 seconds. Inflation number: 18 The MDT NC EUPHORA RX [id number] BALLOON was reinflated across the Mid LAD, to 12 SOFYA for 0:15 seconds. Inflation number: 19 The MDT NC EUPHORA RX [id number] BALLOON was reinflated across the Mid LAD, to 12 SOFYA for 0:14 seconds. Inflation number: 20 The MDT NC EUPHORA RX [id number] BALLOON was reinflated across the Mid LAD, to 14 SOFYA for 0:19 seconds. Inflation number: 21 The MDT NC EUPHORA RX [id number] BALLOON was reinflated across the Mid LAD, to 16 SOFYA for 0:19 seconds. Inflation number: 22 The MDT NC EUPHORA RX [id number] BALLOON was reinflated across the Mid LAD, to 12 SOFYA for 0:05 seconds. Balloon out. Results checked. Inflation Number : 23 A MDT R EMERALD 3.5X15 LIONEL -Lot Number# [id number] was prepped and advanced across the Mid LAD. The stent was deployed at 12 SOFYA for 0:25 seconds. Exp. . Stent balloon out over wire. Inflation number : 24 A MDT NC EUPHORA RX [id number] BALLOON was prepped and advanced across the Mid LAD , then inflated to 6 SOFYA for 0:10 seconds. Inflation number: 25 The MDT NC EUPHORA RX [id number] BALLOON was reinflated across the Mid LAD, to 10 SOFYA for 0:18 seconds. Inflation number: 26 The MDT NC EUPHORA RX [id number] BALLOON was reinflated across the Mid LAD, to 10 SOFYA for 0:18 seconds. Balloon out. Stent balloon out over wire. Results checked. Wire out. Guide catheter out. ACT drawn. Results 294 seconds. Therapeutic limits - pre-heparin administration 90-150 seconds and monitoring heparin during a vascular procedure >250 seconds. 14fr impella sheath peeled away. Family updated by Tala Denny RN. Lidocaine 1% infiltrated to the left groin. Impella device sutured in left groin with 2.0 silk. External measurement of impella catheter 98cm. A Suture was successful obtaining hemostatsis at the Left Femoral vein insertion site. A TR Band was successful obtaining hemostatsis at the Right Radial artery insertion site. Post Procedure: Pulses reassessed and unchanged. PERRLA. Strong, equal hand medical education manager bilaterally. No VTE prophylaxis required. Post-op diagnosis: Cardiogenic shock, severely depressed EF, Successful PCI of prox,mid, and distal LAD with Impella. Complications: None. Estimated blood loss: 5mL-10mL. Responsiveness - Normal response to verbal stimuli; alert and oriented, PERRLA. Airway - Unaffected, no intervention required; spontaneous ventilation. Circulation: W/N/L, pulses unchanged. Nausea/Vomiting: N/A. Medication's Wasted: Lidocaine 1% = 10 mL. Medication's Wasted: Other = Versed 1 mg. Medication's Wasted: Nitro = 49.8 mg. Total IV fluids: 120 mL. Procedure completed. Patient transferred by bed to ICU. Vital chart was stopped. Access Site Site: Left Femoral artery Sheath Size: 5 Fr Hemostasis Success: Unsuccessful Site: Left Femoral vein Sheath Size: 6 Fr Hemostasis Method: Suture Hemostasis Success: Successful Site: Right Radial artery Sheath Size: 6 Fr Hemostasis Method: TR Band Hemostasis Success: Successful Procedure Medications Start: 11:16 AM Stop: 11:16 AM Medication: Versed Amount: 1 mg Route: I.V. Start: 11:31 AM Stop: 11:31 AM Medication: Diphendryamine Amount: 50 mg Route: I.V. Start: 11:35 AM Stop: 11:35 AM Medication: Levophed (norepinephrine) Amount: 4 mcg/min Route: I.V. drip Start: 11:36 AM Stop: 11:36 AM Medication: Fentanyl Amount: 25 mcg Route: I.V. Start: 11:40 AM Stop: 11:40 AM Medication: Levophed (norepinephrine) Amount: 8 mcg/min Route: I.V. drip Start: 12:05 PM Stop: 12:05 PM Medication: Heparin Amount: 7000 units Route: I.V. Start: 12:09 PM Stop: 12:09 PM Medication: Versed Amount: 1 mg Route: I.V. Start: 12:09 PM Stop: 12:09 PM Medication: Fentanyl Amount: 25 mcg Route: I.V. Start: 1:16 PM Stop: 1:16 PM Medication: Fentanyl Amount: 25 mcg Route: I.V. Start: 1:21 PM Stop: 1:21 PM Medication: Heparin Amount: 5000 units Route: I.V. Start: 1:35 PM Stop: 1:35 PM Medication: Versed Amount: 1 mg Route: I.V. Start: 2:02 PM Stop: 2:02 PM Medication: Versed Amount: 1 mg Route: I.V. Start: 2:09 PM Stop: 2:09 PM Medication: Heparin Amount: 2000 units Route: I.V. Start: 2:36 PM Stop: 2:36 PM Medication: Nitrogylcerin Amount: 200 mcg Route: I.C. Start: 2:37 PM Stop: 2:37 PM Medication: Fentanyl Amount: 25 mcg Route: I.V. Start: 2:46 PM Stop: 2:46 PM Medication: Versed Amount: 1 mg Route: I.V. I, the attending physician, have reviewed and verified all procedure medications. Yes, all medications given per verbal order History/Risk Factors Hypertension: No Dyslipidemia: Yes Peripheral Arterial Disease (PAD): Yes Myocardial Infarction (PR): Yes Obesity: No Renal Disease: Yes Tobacco Use: Never Dialysis: Current Prior Interventions PCI: Yes CABG: No Valve Surgery: No Report Signatures Finalized by Bhavin Snider MD on 02/20/2024 12:00 AM
--- NOTE | 2024-02-02 09:37 | PC.NURSE ---
Transferred patient to ICU 11 via bed for patient comfort and more quiet environment. Tolerated well, pre-cath meds given as ordered and NS at 50mL/h started as ordered.
--- NOTE | 2024-02-02 09:53 | PC.NURSE ---
Family at patients bedside, notified Dr. Snider that family is available to consult with.
[2024-02-02 10:26] LABS: INR 1.56 (0.8-1.2)
--- NOTE | 2024-02-02 10:33 | PC.NURSE ---
Organization Development Consultant to bedside and DPOA paperwork completed.
--- NOTE | 2024-02-02 11:02 | PC.NURSE ---
Dr. Snider to room to talk with family. To labor commissioner via bed with Nurses x 2 and family at bedside.
--- NOTE | 2024-02-02 11:17 | W.PM.OPSUD ---
Surgery/Procedure H&P Update DATE OF PROCEDURE: February 02, 2024 DATE H&P PERFORMED: 01/15/24 H&P UPDATE INFORMATION: I have reviewed H&P completed within last 30 days, I have examined patient prior to procedure and No changes to prior documentation PLANNED PROCEDURE: Operation Date: 02/02/24 10:00 Proposed Procedures p Insertion Mechanical Circulatory Support(Not Applicable) - Matt Juares M.D PATIENT REASSESSED PRIOR TO SEDATION, WITH NO CHANGE NOTED: Yes PHYSICAL EXAM: alert, oriented x 3, clear to auscultation bilaterally, regular rate & rhythm and operative site marked AIRWAY EVAL/ANESTHESIA PLAN: ASA II, Risks, benefits & alternatives of sedation and/or procedure discussed and Patient agrees to continue as planned ADDITIONAL INFORMATION: Patient has been explained all risk-benefit and alternative for the procedure he understand this is a high risk procedure with 15 to 20% mortality, contrast induced nephropathy further worsening of renal function leading to prolongation of temporary and adverse case scenario permanent dialysis, stroke, vascular injury, thromboembolic phenomena leading to critical limb ischemia ischemic leg limb loss, complication of Impella, and worst-case scenario major bleed leading to transfusion urgent or emergent vascular bypass surgery and . Patient and family by bedside when I explained all risk-benefit and alternatives. He would like to proceed with it. Indication: Cardiogenic shock with multiorgan failure,, worsening of LV function estimated ejection fraction around 13%.
--- NOTE | 2024-02-02 11:25 | P.PN_ITS ---
Subjective 2 Subjective: Seen this morning. Denies any chest pain or shortness of breath. States that he would like to sign a DPOA and his daughter's name. Going for cath today. Vitals/I&O/Wt Last Vital Signs Temp 98.1 F 02/02/24 08:00 Pulse 65 02/02/24 08:07 Resp 25 H 02/02/24 08:00 BP 99/66 02/02/24 08:00 Pulse Ox 94 02/02/24 08:07 O2 Del Method Nasal Cannula 02/02/24 08:07 O2 Flow Rate 3 02/02/24 08:07 02/01/24 02/02/24 02/02/24 22:59 06:59 14:59 Intake Total 820.833 / 1338.083 192.6 / 1530.683 99.45 / 99.45 Output Total 150 / 150 550 / 700 Balance 670.833 / 1188.083 -357.4 / 830.683 99.45 / 99.45 Weight last 48 hrs Weight 96.615 kg Weight 98.6 kg Weight 99 kg Physical Exam 2 Narrative: General: No acute distress sitting up in bed. On 2 L/min supplemental O2. HEENT: PERRLA, pupils bilaterally equal and reactive, pallors not present Chest: Clear to auscultation bilaterally no wheezes no rhonchi no crackles at this time. Abdomen: Soft, mildly distended Neuro: No focal deficits, moving all extremities, says he is tired. Extremities : 1+ edema bilateral lower extremities. Urinary Catheter Management: Oliva: Cath Placed During This Visit: yes Reason for Continuing Indwelling Catheter: Accurate Measurement of Urinary Output in Critically Ill Patients Urinary Catheter Date of Insertion: 01/29/24 Urinary Catheter Time of Insertion: 15:19 Data 02/02/24 04:56 02/02/24 04:56 Micro: Microbiology 01/29/24 20:40 Urine Culture - Final Urine,Clean Catch Escherichia coli A&P Assessment and plan (1) Ischemic cardiomyopathy: (2) Systolic heart failure: (3) Non-ST elevation FL (NSTEMI): (4) Atrial fibrillation with RVR: (5) Chronic kidney disease: Qualifiers: Chronic kidney disease stage: unspecified stage Qualified Code(s): N 18.9 - Chronic kidney disease, unspecified (6) Metabolic acidosis: (7) Acute kidney failure: (8) Leukocytosis: (9) Cardiorenal syndrome: (10) Transaminitis: (11) Acute liver failure: (12) UTI (urinary tract infection): Plan Non-STEMI No active chest pain Established coronary disease Start ACS protocol A-fib RVR currently on amiodarone drip which needs to be titrated current heart rate is around 80s with stable hemodynamics Systolic CHF exacerbation Continue diuresis Chronic kidney disease: Creatinine 1.5, monitor urine output correlate with creatinine Patient has statin intolerance Cardiology consulted Full code Patient wants to discuss goals of care with her family and let us know 01/29/2024 : Patient has been receiving IV diuresis with Lasix, however has had no urine output. No urge to urinate. Bladder scan without any significant retention. Oliva catheter placed for accurate output measurement. Minimal urine at placement. Labs show interval worsening. LFTs worse with AST ALT greater than thousand. Normal alkaline phosphatase and T. bili. Acute hepatitis screen negative. Kidney function worsened with creatinine at 2.4 today. Overall clinical picture consistent with cardiogenic shock with previously known EF of 25% with hypokinesia, mild hypokinesis of the inferior inferoseptal and mid basal segments. Elevated right heart pressures with PASP of 45-50 from recent echocardiogram on January 15 2024. Will discuss with cardiology regarding inotropic support though his maps have been greater than 65 consistently. Wonder if he may benefit from the same. Discussed case with cardiology nurse practitioner today. Cardiology to decide regarding further angiogram. Previously known to have LCx lesion that was not amenable to intervention. Renal consult for worsening kidney function poor urine output, concerned that patient may end up needing dialysis if does not diurese adequately. Additionally if angiogram is being planned, with risk of YOSELIN, may need HD. Discussed this frankly with the patient. States that he needs to think a little bit more about whether or not he would want dialysis in the situation. 01/30/2024. Patient states he continues to feel poorly.Leukocytosis 20,000, kidney function worsening at 4.1, lactate 5.8, worsening LFTs AST ALT 3500, limited echocardiogram with further drop in EF to 13%, severe diffuse hypokinesia of the left ventricle, moderate to severe mitral valve regurgitation. Moderate to severe tricuspid valve regurgitation. PASP of 53. Overall clinical picture compatible with heart failure leading to multiorgan failure, poor perfusion state. Worsening transaminitis may be related to hepatic congestion versus poor perfusion. Amiodarone has been discontinued per cardiology recommendation given worsening liver function. Liver ultrasound with cholelithiasis without evidence of Álvarez signs or any signs of acute cholecystitis. CBD 0.4 cm. Incidentally noted small right pleural effusion. Overall technically difficult right upper quadrant study. Patient continues to be hypervolemic with very poor urine output. Additionally developing uremia, metabolic acidosis, remains anuric, plan to start dialysis today. Patient will get temporary HD catheter this afternoon and start dialysis afterwards. Closely monitor blood pressure with initiation of dialysis. May need inotropic support if MAP is less than 65. Further plans for angiogram to be decided after initiation of dialysis and optimization of fluid status, correction of electrolyte abnormalities. Leukocytosis 20,000, fever related to multiple acute stressors, however will perform any infectious source evaluation. Check chest x-ray for interval development of any pneumonia. Oliva catheter was inserted yesterday. Urine analysis showing 1+ protein, 3+ blood, 1+ bilirubin, 21-50 WBCs, 1+ leukocyte Estrace negative nitrate. Supplemental 02 at 2lpm. Check blood cultures. Start piperacillin/tazobactam renally dosed empirically while undergoing infectious evaluation. Hearin drip on hold for 6 hrs pending HD catheter insertion. Care plan discussed with patient in detail. prognosis guarded 01/31/2024: Started dialysis yesterday. Postdialysis 500 cc urine output overall. Net negative 1.8L last 24 hrs. To receive another session today. Needed transient levophed support to complete HD. Goal MAP > 65. Oxygen requirement at 4 L/min. LFTs are improving post HD .Urine cx with GNR 40,000 CFU. On zosyn empirically. CXR no consolidation. Continue heparin drip. Plan to optimize volume status and proceed to cardiac cath, hopefully early next week. rate remains controlled. Patient significantly deconditioned from his recent hospitalizations and multiple illnesses, PT/OT assessment for appropriate disposition planning 02/01/2024 Had HD yesterday. Net -900 cc last 24 hours. Urine output 250 cc. Creatinine at 5.1 today. Intermittently hypotensive after dialysis yesterday for which she needed Levophed, however is off since this morning. Liver function is improving. Overall appears to be clinically better since starting dialysis. Edema is improving. Oxygen requirement at 2 L/min today. Urine culture with E. coli which is pansensitive. Discontinue piperacillin/tazobactam and switch to ceftriaxone 1 g IV every 24 hours for a total course of 7 days. Planned dialysis session tomorrow. Plan for left and right heart cath on Friday to assess for any IFR of mid LAD and if significant to proceed with the PCI. We are continuing aspirin Plavix and heparin drip in the interim.He is intolerant of statins. 02/02/2024 -White count 13,000, platelets 109, INR 1.56, creatinine 6.0, BUN 78. ? AST ALT are trending down. ? Urine culture shows E. coli, continue ceftriaxone daily. ? Patient going for coronary angiogram today to assess for IFR of mid LAD and if significant to proceed with PCI. ? Continue aspirin Plavix heparin drip. ? Nephrology following. -Patient will be signing a DPOA today and his daughter's name. ? Goals of care discussion was done. Patient states he would like to be a full code and would like to be intubated if needed. He is also okay with feeding tubes. However he did say that the above interventions would only last 30 days. Past that he would like to be kept comfortable. He also states his daughter would be making decisions for him if needed however the above for his wishes. Attestations 2 Medical Necessity Statement*: continued admission for CHF, NSTEMI, acute renal failure needing diuresis, intermittent need for pressors Critical Care Time: The high probability of a clinically significant, sudden or life threatening deterioration of the patient's [cardiac, respiratory, renal, ID] system(s) required my full and direct attention, intervention and personal management. The critical care time is as shown. This time is in addition to time spent performing any reported procedures but includes the following: [x] Data and vital sign review and interpretation [x] Patient assessment, examination and intervention [x] Documentation [x] Medication orders and management Critical Care Time (min): 40 Coding Level of Care Code Acute Code for [facility] Diagnoses Ischemic cardiomyopathy I25.5 Systolic heart failure I50.20 Non-ST elevation FL (NSTEMI) I21.4 Atrial fibrillation with RVR I48.91 Chronic kidney disease, unspecified CKD stage N18.9 Chronic kidney disease stage: unspecified stage Metabolic acidosis E87.20 Acute kidney failure N17.9 Leukocytosis D72.829 Cardiorenal syndrome I13.10 Transaminitis R74.01 Acute liver failure K72.00 UTI (urinary tract infection) N39.0
--- NOTE | 2024-02-02 11:45 | PC.SOCIAL ---
IMM Update pg 2 of IMM Update and reviewed w/ patient. Copy provided and copy dated, initialed and placed in chart.
--- NOTE | 2024-02-02 14:32 | PC.OT ---
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 WILL ATTEMPT AGAIN TOMORROW.
--- NOTE | 2024-02-02 15:30 | PC.NURSE ---
Received from W[facility] Cashier via bed with cath team, Dr. Snider, Impella Rep, and Family at bedside. Placed on nuclear monitoring technician. CVP transfused to nuclear monitoring technician. Impella in place to left groin, dressing in place with bloody drainage noted. Pulses to left post tib and dorsalis pedis faint. O2 at 4L NC. No reports of pain or discomfort.
[2024-02-02] MEDS: DEXTROSE 10% IV (16:13)
[2024-02-02] MEDS: SODIUM BICARBONATE IV (16:13)
[2024-02-02] MEDS: clopidogrel 300 mg Tablet PO (16:24)
[2024-02-02] MEDS: pantoprazole 40 mg SDV IVP (16:38)
--- NOTE | 2024-02-02 16:51 | USCV_ITS ---
Oskar Varner Age: 78 Gender: M : 1945 Exam Date: 02/02/2024 18:06 Ordering Phys: Bhavin Snider MD ([email or web address]) Technologist: KENNETH Exam Location: [facility] [place] Indication: In situ manipulation of Impella LVAD. BP: 95 / 67 HR: 81 Rhythm: Sinus Technical Quality: Adequate MEASUREMENTS (Male / Female) Normal Values 2D ECHO LV Diastolic Diameter PLAX 6.5 cm 4.2 - 5.9 / 3.9 - 5.3 cm IVS Diastolic Thickness 1.0 cm 0.6 - 1.0 / 0.6 - 0.9 cm IVS Systolic Thickness 1.4 cm LVPW Diastolic Thickness 1.2 cm 0.6 - 1.0 / 0.6 - 0.9 cm LVPW Systolic Thickness 1.5 cm LV Ejection Fraction 2D Teich 9.7 % FINDINGS Left Ventricle Right Ventricle Right Atrium Left Atrium Mitral Valve Aortic Valve Tricuspid Valve Pulmonic Valve Pericardium Aorta IVC CONCLUSIONS Please note that this is a limited echo to assess Impella position Left ventricle size is severely enlarged, left ventricular function is severely depressed estimate ejection fraction is 10 to 15% with global hypokinesis There appeared to be moderate mitral regurgitation, there is no mitral valve stenosis There appeared to be moderate aortic valve regurgitation, there is no aortic valve stenosis Impella catheter was seen across the aortic valve with aortic valve within lead to aortic valve distance around 3.5 cm however Impella position appeared to be towards the lateral wall and not in the apex. Since patient started having hemolysis therefore we tried to adjust the Impella despite of however at most effort were not able to adjust the Impella as patient aorta is calcified and very torturous which make Impella position not optimal. Since patient continues to have hemolysis and section along we decided to pull it back across the aortic valve into the aorta successfully. No pericardial effusion noted Bhavin Snider MD (Electronically Signed) Final Date: 02 February 2024 22:16 S
[2024-02-02] MEDS: cefTRIAXone 1,000 mg SDV 1000 MG IVP (17:28)
--- NOTE | 2024-02-02 18:20 | PC.NURSE ---
Dr. Snider to bedside with Impella rep and us tech at bedside, attempting to reposition impella to obtain better position of cathater. 2mL air removed from right radial TR band.
--- NOTE | 2024-02-02 18:42 | PC.NURSE ---
Unable to achive optimal position of impella cathater. Pulled back into aorta per Dr. Snider, PTT drawn.
--- NOTE | 2024-02-02 18:48 | PC.NURSE ---
2mL air removed from right radial TR band.
[2024-02-02] MEDS: etomidate 10 ML 1 MG (19:30)
[2024-02-02] MEDS: succinylcholine 20 mg/mL SDV 10mL 200 MG (19:30)
--- NOTE | 2024-02-02 19:40 | ECG_ITS ---
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1945 Requested By: Nabor Brooks Order Number: [id number] Reading MD: OZIEL DUFF Measurements Intervals [place] Rate: 90 P: 186 WA: 81 QRS: 169 QRSD: 130 T: 144 QT: 422 QTc: 518 Interpretive Statements This is a Post Code EKG ECTOPIC ATRIAL RHYTHM WITH SHORT WA INTERVAL WITH OCCASIONAL SUPRAVENTRICULAR PREMATURE COMPLEXES RIGHT BUNDLE BRANCH BLOCK [120+ ms QRS DURATION, UPRIGHT V1, 40+ ms S IN I/aVL/V4/V5/V6] ANTEROLATERAL MYOCARDIAL INFARCTION , PROBABLY RECENT [40+ ms Q WAVE IN I/aVL/V3-V6] ST ELEVATION, CONSIDER SEPTAL INJURY [MARKED ST ELEVATION W/O NORMALLY INFLECTED T-WAVE IN V1/V2] ACUTE WV INTERPRETATION BASED ON A DEFAULT AGE OF 40 YEARS Electronically Signed On 02-04-2024 18:06:53 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
--- NOTE | 2024-02-02 19:41 | PM.CCNAC ---
Critical Care Event Note The high probability of a clinically significant, sudden or life threatening deterioration of the patient's [] system(s) required my full and direct attention, intervention and personal management. The critical care time is as shown. This time is in addition to time spent performing any reported procedures but includes the following: [x] Data and vital sign review and interpretation [x] Patient assessment, examination and intervention [x] Documentation [x] Medication orders and management Critical Care Time Code activated: Yes Critical Care Time (min): 30 Additional information about critical care time: Responded to overhead CODE BLUE. Cardiology bedside. Patient ventricular arrhythmia with V-fib and V. tach. ACLS protocol followed. Cardiology comanaged. Airway obtained by ED provider Dr. De León. There is marked blood in the airway. Dr. Guzman spoke with family over the phone, noting the patient would not want prolonged life support and CPR was called. Patient . Refer to CODE BLUE documentation for specific details. Coding Level of Care Code Acute Code for [facility]
--- NOTE | 2024-02-02 20:00 | PC.NURSE ---
CODE [facility] Resuscitation Activated at 1914 Witnessed V-Fib Arrest Dr. Guzman, Dr. Smith, Dr. De León, Dr. Manuel and Madai Haleyella Rep Present during Resuscitation Efforts 1914 V-Fib on monitor/Impella Stopped/Compressions Started/Pt placed on Zoll/Levophed on 1916 - Shocked @ 200j/Pt returned to SR @ 91 bpm with palpable pulse 1917 - Rhythm changed to V-Tach/Shocked @ 200j/150 mg Amiodarone IVP administered 1919 V-Tach/EKG 1920 V-Tach/Shocked @ 200j/CPR continued 1921 Asystole on monitor/1 Amp Epi 1923 1 Amp Bicarb 1925 Pulse check/No Pulse/PEA/1 Amp Epi 1926 Etom & Succs Administered 1927 Pulse check/No Pulse/Asystole/Intubated by ER physician c + breath sounds and + color change 1928 1 Amp Epi 1930 Pulse check/No Pulse 1931 1 Amp Epi 1933 Pulse check/No Pulse/PEA 1934 1 Amp Epi 1936 Pulse check/Pulse palpable/CPR Stopped/ 1954 Pulse weak and thread/becoming irregular/CPR Resumed/1 Amp Epi 1956 Pulse check/No Pulse/ TOD called
--- NOTE | 2024-02-02 20:15 | P.PN_ITS ---
Subjective 2 Subjective: Please note that this note is a progress note post Impella guided PCI to LAD Medications: Reviewed: Yes Vitals/I&O/Wt Last Vital Signs Temp 96.1 F L 02/02/24 17:00 Pulse 80 02/02/24 18:15 Resp 24 H 02/02/24 18:15 BP 107/78 02/02/24 18:15 Pulse Ox 96 02/02/24 18:15 O2 Del Method Nasal Cannula 02/02/24 18:00 O2 Flow Rate 4 02/02/24 18:00 02/02/24 02/02/24 02/02/24 06:59 14:59 22:59 Intake Total 192.6 / 1530.683 99.45 / 99.45 Output Total 550 / 700 600 / 600 Balance -357.4 / 830.683 99.45 / 99.45 -600 / -500.55 Weight last 48 hrs Weight 213 lb Weight 217 lb 6.012 oz Physical Exam 2 Const: COMMON NORMALS: alert OTHER: GENERAL: Patient is arousable and oriented x3. HEART: Regular S1 and S2. No murmur, rub or gallop. LUNGS: Clear to auscultate bilaterally. CENTRAL NERVOUS SYSTEM: Grossly nonfocal. EXTREMITIES: Lower extremities with out edema bilaterally. Resp: COMMON NORMALS: clear to auscultation bilaterally AUSCULTATION: clear to auscultation bilaterally Neuro: SENSORIUM/ORIENTATION: Yes alert Urinary Catheter Management: Oliva: Cath Placed During This Visit: yes Reason for Continuing Indwelling Catheter: Accurate Measurement of Urinary Output in Critically Ill Patients Urinary Catheter Date of Insertion: 01/29/24 Urinary Catheter Time of Insertion: 15:19 Data 02/02/24 04:56 02/02/24 04:56 Micro: Microbiology 01/29/24 20:40 Urine Culture - Final Urine,Clean Catch Escherichia coli A&P Assessment and plan (1) Chest pain: Patient is in volume overload status with underlying coronary artery disease in the face of renal failure troponin elevation may not relieve presented to acute coronary syndrome however given patient worsening situation severe LV dysfunction recurrent heart failure mid and distal LAD lesion upon examining prior angiogram may require further assessment through IFR/hemodynamics, since patient is not in persistent chest pain but because of fact there is no arrhythmia and he is in heart failure along with renal failure with electrolyte derangement with high lactate despite of reasonably good blood pressure with manage first removing fluid either through diuretics which we have not succeeded other option is temporary dialysis which the patient will be going for today, once euvolemic and electrolytes are balance will consider right and left heart cath. On today's visit dated 01/31/2024 patient overall has improved after dialysis. At this point he appeared to be stable coronary artery disease perspective louise. Will continue to diurese and try to get him euvolemic as in decompensated state of heart failure with severely depressed left ventricular ejection fraction patient is high risk for PCI with higher left ventricular end-diastolic pressure, my plan is to take him to the Facilities Maintenance Engineer on Friday for possible IFR of mid LAD and if significant to proceed with PCI. I have detailed discussion with the patient and the family they are in agreement. Continue aspirin statin and anticoagulation/antiplatelets. On today's visit dated 02/01/2024 patient continues to improve steadily on the dialysis. He does not appear to be that much volume overloaded however remains low normal on the blood pressure requiring Levophed from time to time. At this point my plan is to try to take him to Facilities Maintenance Engineer tomorrow most likely I will perform right and left heart cath if needed intervention he may will be requiring Impella given his severely depressed left ventricular ejection fraction and high risk PCI in the face of underlying heart failure and severely depressed ejection fraction he may not tolerate ballooning and stenting due to high left ventricular end-diastolic pressure. Today 02/02/2024 patient after discussion with patient patient and daughter by bedside they would like to do everything for the patient therefore we took him to the Facilities Maintenance Engineer, left groin access was used however due to extreme tortuosity of the iliac vessels and dilated tortuous aorta we have to place Long 6 Uzbek sheath, we then cannulated left circumflex which showed luminal irregularities without significant stenosis, RCA was noted to be nondominant without significant stenosis. LAD has a separate ostium were not able to engage it through left groin approach therefore we opted right radial approach LAD was engaged using CLS guide run-through wire was crossed into the lesions. Through left groin approach using pigtail aortic valve was crossed left ventricular end- diastolic pressure was 30 mmHg. We then decided to place Impella which was placed through left groin approach resulted in optimal cardiac output and improvement in the pressure however we kept patient on Levophed to keep MAP more than 65. IFR of the proximal to distal LAD was noted to be significant at 0.89. We then proceeded with balloon angioplasty of the distal LAD and balloon angioplasty followed by 3 drug-eluting stent in proximal and mid LAD, mid LAD lesion was prepared with lithotripsy, multiple pulses were delivered to the mid calcified lesion and calcified in-stent restenosis of the previously placed mid stent. There appeared to be a proximal eccentric 80% stenosis it was also treated with noncompliant balloon followed by drug-eluting stent postdilated with noncompliant balloon. Excellent angiographic result with ADAM-3 flow was noted at the end of the case. Patient was then transferred to ICU for post PCI care. Continue aspirin statin load with 300 mg more of Plavix will try to wean him off Impella over next 24 hours Qualifiers: Chest pain type: unspecified Qualified Code(s): R07.9 - Chest pain, unspecified (2) Atrial fibrillation with RVR: Remains in sinus rhythm (3) CHF (congestive heart failure): Appear to be compensated now and Impella will continue for 24 more hours to reduce LVEDP Qualifiers: Heart failure chronicity: acute on chronic Heart failure type: combined systolic and diastolic Qualified Code(s): I50.43 - Acute on chronic combined systolic (congestive) and diastolic (congestive) heart failure (4) Hypertension: Patient is on Levophed Qualifiers: Hypertension type: primary hypertension Qualified Code(s): I10 - Essential (primary) hypertension (5) Chronic kidney disease: Dialysis planned today Qualifiers: Chronic kidney disease stage: unspecified stage Qualified Code(s): N 18.9 - Chronic kidney disease, unspecified Plan This is a very complicated patient with multiorgan failure severely depressed left ventricular ejection fraction cardiorenal syndrome/cardiogenic shock underlying cardiomyopathy mild to moderate aortic valve, moderate to severe mitral and severe tricuspid regurgitation. Patient underwent Impella guided PCI to complex and challenging anatomy and LAD stenosis. So far postop he is stable and doing fine on mechanical support. Will continue to monitor closely Attestations 2 Medical Necessity Statement*: Patient require continuation hospitalization for above defined care Coding Level of Care Code Acute Code for [facility] Diagnoses Chest pain, unspecified type R07.9 Chest pain type: unspecified Atrial fibrillation with RVR I48.91 Acute on chronic combined systolic and diastolic congestive heart failure I50.43 Heart failure chronicity: acute on chronic Heart failure type: combined systolic and diastolic Primary hypertension I10 Hypertension type: primary hypertension Chronic kidney disease, unspecified CKD stage N18.9 Chronic kidney disease stage: unspecified stage
--- NOTE | 2024-02-02 20:29 | P.PN_ITS ---
Subjective 2 Subjective: Postcode note I was informed by the ICU nurse that patient went into V-fib arrest. I immediately arrived in the ICU and along with the team participated in his code. Patient underwent multiple rounds of CPR for 20 to 25 minutes. This evening post PCI hemolysis was noted in the urine we will try to adjust Impella under echocardiogram guidance, due to extreme tortuosity and calcified aorta Impella appeared to be hindering anterior mitral valve and pointing towards the lateral wall will elect was around 3 to 3.5 cm from the aortic valve. We tried for nearly 40-45 minutes to adjust the Impella under echo guidance however since patient was maintaining blood pressure and because of fact there is suction alarm and hemolysis we decided to reduce it to P2 and then pulled back into aorta and over the period of time once PTT below 45 plan is to then pull it out of the left common femoral artery. While waiting for PTT to come down patient had episode of VT VF arrest as above multiple rounds of CPR as per ACLS protocol were performed unfortunately patient did not achieve meaningful ROSC at this point family was contacted, I personally spoke to patient's daughter who informed me about his wishes that he would not like his life to be prolonged on ventilator since patient did not achieve ROSC despite of utmost effort after 20 minutes or more of CPR after consultation of every member of the code team we called of the code off, patient immediately . For code details time and date please consult code sheet and summary. Vitals/I&O/Wt Last Vital Signs Temp 96.1 F L 02/02/24 17:00 Pulse 80 02/02/24 18:15 Resp 24 H 02/02/24 18:15 BP 107/78 02/02/24 18:15 Pulse Ox 96 02/02/24 18:15 O2 Del Method Nasal Cannula 02/02/24 18:00 O2 Flow Rate 4 02/02/24 18:00 02/02/24 02/02/24 02/02/24 06:59 14:59 22:59 Intake Total 192.6 / 1530.683 99.45 / 99.45 Output Total 550 / 700 600 / 600 Balance -357.4 / 830.683 99.45 / 99.45 -600 / -500.55 Weight last 48 hrs Weight 213 lb Weight 217 lb 6.012 oz Physical Exam 2 Urinary Catheter Management: Oliva: Cath Placed During This Visit: yes Reason for Continuing Indwelling Catheter: Accurate Measurement of Urinary Output in Critically Ill Patients Urinary Catheter Date of Insertion: 01/29/24 Urinary Catheter Time of Insertion: 15:19 Data 02/02/24 04:56 02/02/24 04:56 Micro: Microbiology 01/29/24 20:40 Urine Culture - Final Urine,Clean Catch Escherichia coli Attestations 2 Medical Necessity Statement*: Patient Coding Level of Care Code Acute Code for Chg Fwd
--- NOTE | 2024-02-02 21:35 | ED_ITS ---
HPI - Chest Pain 2 General: Chief Complaint: Chest Pain Stated Complaint: CP, Sob Time Seen by Provider: 01/28/24 14:18 Source: patient Mode of arrival: ambulatory Limitations: no limitations History of Present Illness: Called to ICU for code. Patient was in tach arrhythmia and received cardioversion on a couple of times. Pulse was regained and lost. Ultimately I intubated the patient. [employer] and hospitalist were both present Related Data Home Medications Medication Instructions Recorded Confirmed levothyroxine 150 mcg capsule 150 mcg PO DAILY 05/13/19 01/28/24 Co Q-10 100 mg PO DAILY 06/08/20 01/28/24 Triple Magnesium Complex 400 mg PO DAILY 06/08/20 01/28/24 beetroot 4,000 mg PO BID 12/20/20 01/28/24 testosterone cypionate 200 mg/mL 200 mg SUBCUT Q21D 03/19/21 01/28/24 intramuscular oil green lipped mussel 500 mg PO BID 06/22/21 01/28/24 potassium citrate 99 mg capsule 99 mg PO BID 12/13/22 01/28/24 Bifidobacterium infantis 4 mg 1,500 mmu cells PO DAILY 01/15/24 01/28/24 capsule (Align) acetylcarnitine 500 mg capsule 500 mg PO DAILY 01/15/24 01/28/24 amino acids (Amino Acid capsule) 1 cap PO BID 01/15/24 01/28/24 cholecalciferol (vitamin D3) 50 50 mcg PO DAILY 01/15/24 01/28/24 mcg (2,000 unit) tablet (Vitamin D3) lubiprostone 8 mcg capsule 8 mcg PO BID 01/15/24 01/28/24 vitamin B complex 1 tab PO DAILY 01/15/24 01/28/24 zinc sulfate 50 mg zinc (220 mg) 50 mg PO DAILY 01/15/24 01/28/24 tablet amlodipine 2.5 mg tablet 2.5 mg PO DAILY 01/28/24 01/28/24 furosemide 40 mg tablet 40 mg PO DAILY 01/28/24 01/28/24 Previous Rx's Medication Instructions Recorded omeprazole 20 mg capsule,delayed 20 mg PO DAILY #90 caps 12/10/21 release nitroglycerin 0.4 mg sublingual 0.4 mg sublingual Q5M PRN chest 08/02/22 tablet (Nitrostat) pain #25 tabs clopidogrel 75 mg tablet 75 mg PO DAILY 30 days #30 tabs 01/17/24 apixaban 5 mg tablet (Eliquis) 5 mg PO BID@0900,2100 30 days #60 01/18/24 tabs digoxin 125 mcg (0.125 mg) tablet 125 mcg PO DAILY 30 days #30 tabs 01/18/24 metoprolol succinate 25 mg 25 mg PO DAILY 30 days #30 tabs 01/18/24 tablet,extended release 24 hr Allergies Allergy/AdvReac Type Severity Reaction Status Date / Time [id number] Reductase Allergy Unknown Unknown Verified 12/23/23 12:30 Inhibitor Review of Systems 2 General: Reports: ROS unobtainable due to medical condition PFSH ED 2 PFSH: Medical History Hiatal hernia PAD (peripheral artery disease) Chest pain Thoracic ascending aortic aneurysm Ischemic cardiomyopathy Anterior wall myocardial infarction Statin intolerance Carotid bruit Erectile dysfunction GERD (gastroesophageal reflux disease) Dyslipidemia ASHD (arteriosclerotic heart disease) Surgical History History of heart artery stent Family History Mother , AGE 73 Congestive heart failure (CHF) Other Diabetes Hypertension Social History Smoking and tobacco/nicotine status: never used tobacco/nicotine Alcohol intake: current Alcohol intake frequency: 0-2 Drinks per Day Alcohol type: wine Substance/Drug Use: never Marital status: service: No Current occupational status: retired Physical Exam 2 Narrative: EXAM NARRATIVE: General: responds minimally to painful stimuli. Skin: Warm, dry Head: Normocephalic, atraumatic. Neck: Supple, trachea midline. Eye: Extraocular movements are intact. Ears, nose, mouth and throat: Dry oral mucosa. Cardiovascular: Initially patient was pulseless and tachycardic Respiratory: Coarse breath sounds patient is being bagged but does have spontaneous respirations Gastrointestinal: Soft, Non distended, Normal bowel sounds. Musculoskeletal: no deformity. Neurological: Not Alert and oriented, No obvious focal neurological deficit observed. Psychiatric: unable to assess. Course 2 Vital Signs: Vital signs: Vital Signs Temperature 96.1 F L 02/02/24 17:00 Pulse Rate 90 02/02/24 19:45 Respiratory Rate 24 H 02/02/24 19:45 Blood Pressure 116/95 02/02/24 19:15 Pulse Oximetry 97 02/02/24 19:15 Oxygen Delivery Me thod Nasal Cannula 02/02/24 18:00 Oxygen Flow Rate 4 02/02/24 18:00 MDM - Chest Pain Medical Decision Making Endotracheal intubation Confirmed: Patient, procedure, and site correct. Consent: , Emergent. Indication: Respiratory failure. Procedural sedation: Succinylcholine and etomidate . Monitoring: Cardiac, blood pressure, continuous pulse oximetry. Preparation: Pre oxygenated, Inline stabilization of cervical spine maintained, Ensured proper cuff inflation. Technique: Oral intubation: A 8 ET tube was inserted, glydescope, visualized cords and ett passing through cords. . Confirmation of tube placement: Bilateral chest rise, Positive color change indicated on end title CO2. Post procedure exam: Equal breath sounds. Complications: There was quite a bit of blood in the airway. Vocal cords were able to be visualized.. Performed by: Self. Total time: 10 minutes. Lab Data 02/02/24 04:56 02/02/24 04:56 Radiology Impressions Renal Ultrasound 01/29/24 17:50 IMPRESSION: 1. No renal atrophy or obstruction. 2. Small bilateral simple renal cysts. Liver Ultrasound 01/29/24 18:08 IMPRESSION: 1. Cholelithiasis without evidence for Álvarez's sign or acute cholecystitis. 2. No bile duct dilatation. 3. Technically difficult RIGHT upper quadrant ultrasound. 4. Small RIGHT pleural effusion. Chest X-Ray 01/30/24 10:37 Impression: Cardiomegaly and atherosclerosis. Laboratory Results WBC 10.93 10^3/uL (3.29-11.43) 01/28/24 14:48 RBC 4.69 10^6/uL (3.85-5.65) 01/28/24 14:48 Hgb 14.40 g/dL (11.27-16.99) 01/28/24 14:48 Hct 42.3 % (37-53) 01/28/24 14:48 MCV 90.2 fl (82-101) 01/28/24 14:48 MCH 30.7 pg (27-33) 01/28/24 14:48 MCHC 34.0 g/dL (30-55) 01/28/24 14:48 RDW 13.2 % (12.1-15.1) 01/28/24 14:48 Plt Count 386 10^3/cmm (157-399) 01/28/24 14:48 MPV 9.8 fL (7.4-10.4) 01/28/24 14:48 Neut % (Auto) 81.5 % 01/28/24 14:48 Lymph % (Auto) 10.5 % 01/28/24 14:48 Eddy % (Auto) 6.2 % 01/28/24 14:48 Eos % (Auto) 0.7 % 01/28/24 14:48 Baso % (Auto) 0.5 % 01/28/24 14:48 Neut # (Auto) 8.90 10^3/uL (1.8-7.7) H 01/28/24 14:48 Lymph # (Auto) 1.2 10^3/uL (0.8-4.8) 01/28/24 14:48 Eddy # (Auto) 0.7 10^3/uL (0.2-0.9) 01/28/24 14:48 Eos # (Auto) 0.1 10^3/uL (0.0-0.8) 01/28/24 14:48 Baso # (Auto) 0.1 10^3/uL (0.0-0.1) 01/28/24 14:48 Nucleated RBC % (auto) 0 % 01/28/24 14:48 Nucleated RBCs # 0.0 /100WBC 01/28/24 14:48 PT 18.30 SECONDS (12.1-14.9) H 01/28/24 14:48 INR 1.47 (0.8-1.2) H 01/28/24 14:48 Sodium 135 mmol/L (136-145) L 01/28/24 14:48 Potassium 4.6 mmol/L (3.5-5.1) 01/28/24 14:48 Chloride 100 mmol/L (98-107) 01/28/24 14:48 Carbon Dioxide 20 mmol/L (22-29) L 01/28/24 14:48 Anion Gap 19.6 (5-19) H 01/28/24 14:48 BUN 34 mg/dL (8-23) H 01/28/24 14:48 Creatinine 1.5 mg/dL (0.7-1.2) H 01/28/24 14:48 GFR Calculation Not Reportable 01/28/24 14:48 Glucose 138 mg/dL (65-115) H 01/28/24 14:48 Calculated Osmolality 290 mOsm/kg (285-295) 01/28/24 14:48 Calcium 8.8 mg/dL (8.5-10.5) 01/28/24 14:48 Total Bilirubin 0.4 mg/dL (0.15-1.2) 01/28/24 14:48 AST 57 U/L (0-40) H 01/28/24 14:48 ALT 98 U/L (0-41) H 01/28/24 14:48 Alkaline Phosphatase 79 U/L (40-130) 01/28/24 14:48 Troponin T Baseline 1782 ng/L (0-15) H* 01/28/24 14:48 NT-Pro-B Natriuret Pep 08102 pg/mL (0-450) H 01/28/24 14:48 Total Protein 6.0 g/dL (6.6-8.7) L 01/28/24 14:48 Albumin 3.4 g/dL (3.5-5.2) L 01/28/24 14:48 Globulin 2.6 g/dL (1.3-4.6) 01/28/24 14:48 Lipase 31 U/L (13-60) 01/28/24 14:48 Digoxin 0.7 ng/mL (0.6-1.2) 01/28/24 14:48 No radiology studies performed this visit Discharge Plan Discharge Patient Disposition: Admitted As Inpatient Admit Provider: Marion Contreras Clinical Impression: Non-ST elevation [place] (NSTEMI), CHF (congestive heart failure), Atrial fibrillation with RVR Condition: Stable Coding Level of Care Code ED Medical Services Manager for Nestor White
--- NOTE | 2024-02-02 22:09 | PC.HD ---
Late entry - Attempted to initiate tx at 16:45 but machine immediately alarmed for blood leak (neg) and would not clear and tx attempt aborted. Machine restrung and put through test again but when pt connected, machine again immediately alarmed for blood leak and would not clear, treatment attempt again aborted. A 2nd dialysis machine was prepped and brought to ICU but before it was set up at bedside the patient coded and ultimately . Dr Gonzalez notified.
--- NOTE | 2024-02-02 23:24 | PC.NURSE ---
TOArpita @ 1957 [facility] Notified @ 2050 Rf # [id number] Per MTS, pt is candidate Michelle Time @ [id number]
--- NOTE | 2024-02-03 07:16 | PC.NURSE ---
Late entry 02/02/242129: Spoke with Pt daughter, stated they were not coming to facility to view body, and requested body be released to [facility] in [place], [place].
--- NOTE | 2024-02-03 07:23 | PC.NURSE ---
All belongings that were present in room taken with body from unit. No wallet present, daughter stated family had taken wallet home with them and would come to facility to retrieve the rest on 10/03/23.
[2024-02-03 07:58] LABS: PROTEIN, TOTAL 6.5 g/dL (6.1-8.1)
--- NOTE | 2024-02-03 08:19 | P.DES_ITS ---
Discharge Providers DDS Date of Admission: 01/28/24 16:36 Date Summary Completed: 02/14/24 Attending Provider at Admission: Marion Contreras MD Attending Provider at Discharge: Marion Contreras MD Primary Care Provider: Darryl ARRIAGA Diagnoses Hospital Diagnoses (1) Chest pain: Qualifiers: Chest pain type: unspecified Qualified Code(s): R07.9 - Chest pain, unspecified (2) Atrial fibrillation with RVR: (3) CHF (congestive heart failure): Qualifiers: Heart failure chronicity: acute on chronic Heart failure type: combined systolic and diastolic Qualified Code(s): I50.43 - Acute on chronic combined systolic (congestive) and diastolic (congestive) heart failure (4) Hypertension: Qualifiers: Hypertension type: primary hypertension Qualified Code(s): I10 - Essential (primary) hypertension (5) Chronic kidney disease: Qualifiers: Chronic kidney disease stage: unspecified stage Qualified Code(s): N18.9 - Chronic kidney disease, unspecified Reason for Visit Reason for Visit CP, Sob Summary Summary Summary: Patient had in-hospital cardiac arrest, code blue called overhead cardiology and hospitalist from elevator examiner and adjuster present at bedside please see critical care note and cardiology post code note. Attending physician, the technical publications writer not present at time of and during the code. Additional Data Advance directives?: No Discharge Plan Discharge Patient Disposition: Condition: Prescriptions: No Action levothyroxine 150 mcg capsule 150 mcg PO DAILY beetroot 4,000 mg PO BID testosterone cypionate 200 mg/mL oil 200 mg SUBCUT Q21D green lipped mussel 500 mg PO BID Rx Instructions: [id number] tablet potassium citrate 99 mg capsule 99 mg PO BID omeprazole 20 mg capsule,delayed release(DR/EC) 20 mg PO DAILY Qty: 90 3RF nitroglycerin [Nitrostat] 0.4 mg tablet, sublingual 0.4 mg sublingual Q5M PRN (Reason: chest pain) Qty: 25 1RF Rx Instructions: do not exceed 3 doses per episode Co Q-10 100 mg tablet 100 mg PO DAILY Triple Magnesium Complex 400 mg tablet 400 mg PO DAILY acetylcarnitine 500 mg Capsule 500 mg PO DAILY Amino Acid Capsule 1 cap PO BID zinc sulfate 50 mg zinc (220 mg) Tablet 50 mg PO DAILY vitamin B complex Tablet 1 tab PO DAILY Align 4 mg Capsule 1,500 mmu cells PO DAILY Rx Instructions: administer with a meal lubiprostone 8 mcg capsule 8 mcg PO BID cholecalciferol (vitamin D3) [Vitamin D3] 50 mcg (2,000 unit) Tablet 50 mcg PO DAILY clopidogrel 75 mg Tablet 75 mg PO DAILY 30 Days Qty: 30 0RF Eliquis 5 mg Tablet 5 mg PO BID@0900,2100 30 Days Qty: 60 0RF digoxin 125 mcg (0.125 mg) Tablet 125 mcg PO DAILY 30 Days Qty: 30 0RF metoprolol succinate 25 mg Tablet Extended Release 24 Hr 25 mg PO DAILY 30 Days Qty: 30 0RF furosemide 40 mg tablet 40 mg PO DAILY amlodipine 2.5 mg tablet 2.5 mg PO DAILY Referrals: Darryl Victor [Primary Care Provider] - Patient Instructions: Dialysis Nutrition Plan (DC), Hemodialysis (DC) Probable Cause of Probable cause of : Cardiac arrest DS Attestations Time Spent in /Discharge Care*: less than 30 min Quality - AMI: AMI present?: Yes Quality - Stroke: CVA present?: No Quality - VTE: VTE present?: No Coding Level of Care Code Acute Code for [facility] Diagnoses Chest pain, unspecified type R07.9 Chest pain type: unspecified Atrial fibrillation with RVR I48.91 Acute on chronic combined systolic and diastolic congestive heart failure I50.43 Heart failure chronicity: acute on chronic Heart failure type: combined systolic and diastolic Primary hypertension I10 Hypertension type: primary hypertension Chronic kidney disease, unspecified CKD stage N18.9 Chronic kidney disease stage: unspecified stage
[2024-02-03 15:19] LABS: Anti-Nuclear Antibody Screen NEGATIVE (NEGATIVE)
[2024-02-04 15:00] LABS: KAPPA LIGHT CHAIN, FREE, SERUM 88.9 mg/L (3.3-19.4); KAPPA/LAMBDA LIGHT CHAINS FREE 2.27 (0.26-1.65); LAMBDA LIGHT CHAIN, FREE, SERU 39.2 mg/L (5.7-26.3)
[2024-02-04 15:10] LABS: ALBUMIN 3.2 g/dL (3.8-4.8); ALPHA 1 GLOBULIN 0.6 g/dL (0.2-0.3); ALPHA 2 GLOBULIN 1.1 g/dL (0.5-0.9); BETA 1 GLOBULIN 0.5 g/dL (0.4-0.6); BETA 2 GLOBULIN 0.3 g/dL (0.2-0.5); GAMMA GLOBULIN 0.9 g/dL (0.8-1.7)
[2024-02-04 18:19] LABS: Immunofixation Serum Normal pattern.
== END 2024-02-02 23:24 | disposition expired | DRG 215 ==
LOC: ER 16:27 → ICU 16:38
PROVIDERS: Hospitalist; Internal Medicine; Internal Medicine Cardiovascular Disease; Internal Medicine Nephrology; Student in an Organized Health Care Education/Training Program; Admitting Provider Internal Medicine; Emergency Provider Emergency Medicine; PCP Family Medicine; Visit Provider Internal Medicine
PROC: 02HA3RZ Insertion of Short-term External Heart Assist System into Heart, Percutaneous Approach (ICD-10-PCS; principal; 2024-02-02 10:00)
PROC: 02HA3RZ Insertion of Short-term External Heart Assist System into Heart, Percutaneous Approach (ICD-10-PCS; 2024-02-02 10:00)
DX: I21.4 Non-ST elevation (NSTEMI) myocardial infarction (principal); I50.43 Acute on chronic combined systolic (congestive) and diastolic (congestive) heart failure; K72.00 Acute and subacute hepatic failure without coma; I13.0 Hypertensive heart and chronic kidney disease with heart failure and stage 1 through stage 4 chronic kidney disease, or unspecified chronic kidney disease; N17.9 Acute kidney failure, unspecified; E87.1 Hypo-osmolality and hyponatremia; E87.20 Acidosis, unspecified; N39.0 Urinary tract infection, site not specified; I46.9 Cardiac arrest, cause unspecified; R57.0 Cardiogenic shock; I48.91 Unspecified atrial fibrillation; N18.9 Chronic kidney disease, unspecified; I25.10 Atherosclerotic heart disease of native coronary artery without angina pectoris; I25.5 Ischemic cardiomyopathy; E78.5 Hyperlipidemia, unspecified; K21.9 Gastro-esophageal reflux disease without esophagitis; I73.9 Peripheral vascular disease, unspecified; E87.5 Hyperkalemia; I95.3 Hypotension of hemodialysis; I34.0 Nonrheumatic mitral (valve) insufficiency; I07.1 Rheumatic tricuspid insufficiency; B96.20 Unspecified Escherichia coli [E. coli] as the cause of diseases classified elsewhere; Z95.5 Presence of coronary angioplasty implant and graft; Z88.8 Allergy status to other drugs, medicaments and biological substances; Z79.01 Long term (current) use of anticoagulants; Z79.02 Long term (current) use of antithrombotics/antiplatelets
CPT/HCPCS: 33990; 36415; 36416; 36600; 51702; 71045; 76705; 76770; 80051; 80053; 80162; 80307; 81001; 82044; 82330; 82436; 82550; 82570; 82805; 82962; 83605; 83690; 83735; 83880; 83883; 84100; 84133; 84155; 84156; 84165; 84300; 84484; 84550; 85025; 85049; 85347; 85610; 85730; 86038; 86160; 86334; 86705; 86706; 86709; 86803; 87040; 87077; 87086; 87186; 87340; 90935; 92972; 93005; 93308; 93571; 94664; 96365; 96374; 96375; 96376; 97161; 99152; 99153; 99285; A4222; C1725; C1760; C1761; C1769; C1874; C1887; C1894; C9600; G0269; J0171; J0282; J0283; J0330; J0612; J0696; J1200; J1644; J1815; J1940; J2003; J2250; J2270; J2405; J2470; J2543; J3010; J3490; J7030; J7070; J7120; J7799; P9047; Q0163; Q3014; Q9967